=== PATIENT | female | born 1945 | race Caucasian/White ===

== ENCOUNTER 2018-11-19 15:45 | Emergency (ER) | payer MEDICARE, OTHER ==
[~2018-11-19] VITALS: Ht 154.9 cm; Wt 117.9 kg
[~2018-11-19 15:45] MED LIST: ALLOPURINOL100 MG PO; ASPIRIN325 MG PO; CALCIUM500 MG PO; FISH OIL 1,0001 EAC1 PO; FUROSEMIDE20 MG PO; HYDROCODON-ACE1 EA10 PO; HYDROCODON-ACE1 EA11 PO; IRON240 MG PO; LASIX20 MG PO; LISINOPRIL10 MG PO; LISINOPRIL40 MG PO; METFORMIN HCL1000 MG PO; METOPROLOL TART25 MG PO; MIRALAX17 GM PO; NIACIN500 M1 PO; OMEPRAZOLE20 MG PO; OXYCODONE HCL5 MG PO; POTASSIUM GLUC500 MG PO; PREDNISONE10 MG PO; TOPROL XL25 MG PO; TRAMADOL HCL50 MG PO; VITAMIN D1000 UNI1 PO; VITAMIN D31000 UNIT PO; XARELTO10 MG PO
[2018-11-19] MEDS ORDERED: ZOCOR40 MG (15:59)
[2018-11-19] MEDS ORDERED: AMLODIPINE BESYL5 MG PO (16:00)
--- OUTSIDE RECORDS SUMMARY | 2018-11-19 18:50 | XMS ---
PreManage Notification: TADEO AYALA Security Service Desk Team Lead Events No recent Security Events currently on file CRITERIA MET - [facility] - 2 Visits in 30 Days CARE PROVIDERS [facility] Current PHONE: Unknown orarmani Case or Inventory Specialist Current PHONE: Unknown Hiram [place] Other Current Orthopedic Surgery \T\ Fracture Clinic PHONE: Unknown Spencer has no Care Guidelines for this patient. E.D. VISIT COUNT (12 MO.) 1 [facility] Jose 1 FRANCESCA Matamoros TOTAL 2 NOTE: Visits indicate total known visits. ED/UCC VISIT TRACKING (12 MO.) 11/19/2018 18:57 [facility] Jose SALGUERO TYPE: Emergency DIAGNOSES: - Illness, unspecified 11/19/2018 15:46 FRANCESCA Clarke TYPE: Emergency COMPLAINT: - SOB INPATIENT VISIT TRACKING (12 MO.) No inpatient visits to display in this time frame [id number]
--- NOTE | 2018-11-19 23:21 | EKG ---
[facility] [address] [place], [place] [address] Signed Third degreee Heart Block Abnormal ECG No previous ECGs available Confirmed by JENNIFER NAGY MD ([id number]) on 11/19/2018 11:20:57 PM Electronically Signed By: JENNIFER NAGY MD 11/19/18 232 PATIENT NAME: TADEO AYALA Electrocardiogram DATE OF : 43 PHYSICIAN: JENNIFER NAGY MD REPORT #: [id number] REPORT IS CONFIDENTIAL AND NOT TO BE RELEASED WITHOUT AUTHORIZATION
== END 2018-11-19 18:40 | disposition short-term general hospital (02) ==
LOC: ED 15:45
DX: I13.0 Hypertensive heart and chronic kidney disease with heart failure and stage 1 through stage 4 chronic kidney disease, or unspecified chronic kidney disease (principal); I50.9 Heart failure, unspecified; I44.2 Atrioventricular block, complete; E11.22 Type 2 diabetes mellitus with diabetic chronic kidney disease; N18.9 Chronic kidney disease, unspecified; E66.9 Obesity, unspecified; Z87.891 Personal history of nicotine dependence; Z79.82 Long term (current) use of aspirin; Z79.899 Other long term (current) drug therapy
CPT/HCPCS: 71045; 80053; 83880; 84484; 85025; 85610; 93005; 93010; 99284-25

== ENCOUNTER 2019-10-04 16:24 | Emergency (ER) | payer MEDICARE, OTHER ==
[~2019-10-04] VITALS: Ht 154.9 cm; Wt 117.9 kg
--- OUTSIDE RECORDS SUMMARY | ~2019-10-04 | XMS | Encounter Summary ---
Demographics + + + | Address | [address] | | | [place] [address] | + + + | Home Phone | | + + + | Preferred Language | Unknown | + + + | Marital Status | | + + + | Baptism Affiliation | Unknown | + + + | Race | Unknown | + + + | Ethnic Group | Unknown | + + + Author + + + | Author | [facility] | | | and [place] | + + + | Organization | [facility] | | | and [place] | + + + | Address | Unknown | + + + | Phone | Unavailable | + + + Support + + + + + | Name | Relationship | Address | Phone | + + + + + | Last Kishorcarlos | ECON | [address] | | | | | [place] | | | | | [address] | | + + + + + Care Team Providers + +------+ + | Care Human Resource Statistician Name | Role | Phone | + +------+ + | Marilee Whaley | PCP | | | PA | | | + +------+ + Reason for Visit + + + | Reason | Comments | + + + | Medication Refill | | + + + Encounter Details +--------+--------+ + + + | Date | Type | Department | Care Team | Description | +--------+--------+ + + + | 09/24/ | Refill | [facility] | Rod Schaefer, | Medication Refill | | 2018 | | NEPHROLOGY [facility] | [address] | | | | | [address] [facility] | [place] | | | | | [place] | [place] | | | | | [address] | [address] | | | | | [phone] | [phone] | | | | | | | | +--------+--------+ + + + Social History + +-------+ +--------+------+ | Tobacco Use | Types | Packs/Day | Years | Date | | | | | Used | | + +-------+ +--------+------+ | Former Smoker | | 1.5 | | | + +-------+ +--------+------+ + + +---------+ + | Alcohol Use | Drinks/Week | oz/Week | Comments | + + +---------+ + | Yes | 0 Standard drinks | 0.0 | RARE, SOCIAL | | | or equivalent | | | + + +---------+ + + + + | Sex Assigned at | Date Recorded | | | | + + + | Not on file | | + + + + + + + | Job Start Date | Occupation | Industry | + + + + | Not on file | Not on file | Not on file | + + + + + + + + | Travel History | Travel Start | Travel End | + + + + + + | No recent travel history available. | + + documented as of this encounter Plan of Treatment +--------+ + + + + | Date | Type | Specialty | Care Team | Description | +--------+ + + + + | 12/15/ | Office | Nephrology | Jonathan Acosta MD | | | 2020 | Visit | | [address] [facility] | | | | | | [address] [place], [place] | | | | | | [address] | | | | | | | | +--------+ + + + + | 12/29/ | Procedure | Cardiology | | | | 2019 | visit | | | | +--------+ + + + + | 03/30/ | Procedure | Cardiology | | | | 2019 | visit | | | | +--------+ + + + + | 06/29/ | Procedure | Cardiology | | | | 2019 | visit | | | | +--------+ + + + + documented as of this encounter Visit Diagnoses + + | Diagnosis | + + | Chronic kidney disease, stage III (moderate) (HCC) - Primary Chronic kidney disease, | | Stage III (moderate) | + + | Adenoma of right adrenal gland | + + | Hypomagnesemia Disorders of magnesium metabolism | + + documented in this encounter"
--- OUTSIDE RECORDS SUMMARY | ~2019-10-04 | XMS | Encounter Summary ---
Demographics + + + | Address | [address] | | | [place] [address] | + + + | Home Phone | | + + + | Preferred Language | Unknown | + + + | Marital Status | | + + + | Religion Affiliation | Unknown | + + + | Race | Unknown | + + + | Ethnic Group | Unknown | + + + Author + + + | Author | [facility] | | | and [place] | + + + | Organization | [facility] | | | and [place] | + + + | Address | Unknown | + + + | Phone | Unavailable | + + + Support + + + + + | Name | Relationship | Address | Phone | + + + + + | Last Kishorcarlos | ECON | [address] | | | | | [place] | | | | | [address] | | + + + + + Care Team Providers + +------+ + | Care Vehicle Service Attendant Name | Role | Phone | + +------+ + | Marilee Whaley | PCP | | | PA | | | + +------+ + Encounter Details +--------+ + + + + | Date | Type | Department | Care Team | Description | +--------+ + + + + | 05/14/ | Orders Only | [facility] | Conversion | | | 2017 | | NEPHROLOGY [facility] | Transaction, | | | | | [address] | Provider Unknown | | | | | [address] [place], [place] | | | | | | [address] | (Fax) | | | | | [phone] | | | +--------+ + + + + Social History + +-------+ +--------+------+ | Tobacco Use | Types | Packs/Day | Years | Date | | | | | Used | | + +-------+ +--------+------+ | Never Assessed | | | | | + +-------+ +--------+------+ + [...] | Jonathan Acosta MD | | | 2019 | Visit | | [address] [facility] | | | | | | [address] [place], [place] | | | | | | [address] | | | | | | | [...] + + documented as of this encounter Procedures + +--------+ + + + | Procedure Name | Priori | Date/Time | Associated Diagnosis | Comments | | | ty | | | | + +--------+ + + + | EXTERNAL LAB: CBC | Routin | 05/14/2017 | | Results for this | | | e | 3:46 PM | | procedure are in the | | | | PDT | | results section. | + +--------+ + + + | IRON AND IRON | Routin | 05/14/2017 | | Results for this | | BINDING CAPACITY | e | 3:46 PM | | procedure are in the | | | | PDT | | results section. | + +--------+ + + + | URINALYSIS, | Routin | 05/14/2017 | | Results for this | | MICROSCOPIC ONLY | e | 3:46 PM | | procedure are in the | | | | PDT | | results section. | + +--------+ + + + | URIC ACID | Routin | 05/14/2017 | | Results for this | | | e | 3:46 PM | | procedure are in the | | | | PDT | | results section. | + +--------+ + + + | PARATHYROID HORMONE, | Routin | 05/14/2017 | | Results for this | | INTACT | e | 3:46 PM | | procedure are in the | | | | PDT | | results section. | + +--------+ + + + | MAGNESIUM | Routin | 05/14/2017 | | Results for this | | | e | 3:46 PM | | procedure are in the | | | | PDT | | results section. | + +--------+ + + + | FERRITIN | Routin | 05/14/2017 | | Results for this | | | e | 3:46 PM | | procedure are in the | | | | PDT | | results section. | + +--------+ + + + | RENAL FUNCTION PANEL | Routin | 05/14/2017 | | Results for this | | | e | 3:46 PM | | procedure are in the | | | | PDT | | results section. | + +--------+ + + + documented in this encounter Results Iron and Iron Binding Capacity (05/14/2017 3:46 PM PDT) + + + + + + | Component | Value | Ref Range | Performed | Pathologist | | | | | At | Signature | + + + + + + | Iron | 61.75 | 37 - 160 | EXTERNAL | | | | | | LAB | | + + + + + + | Iron | 13.5 (A) | 20 - 55 | EXTERNAL | | | Saturation | | | LAB | | + + + + + + | TIBC | 457 (A) | 245 - 400 | EXTERNAL | | | | | | LAB | | + + + + + + + + | Specimen | + + | Blood specimen | | (specimen) | + + + +---------+ + + | Performing | Address | City/State/Zipcode | Phone Number | | Organization | | | | + +---------+ + + | EXTERNAL LAB | | | | + +---------+ + + Urinalysis, Microscopic Only (05/14/2017 3:46 PM PDT) + + + + + + | Component | Value | Ref Range | Performed | Pathologist | | | | | At | Signature | + + + + + + | Color | Yellow | | EXTERNAL | | | | | | LAB | | + + + + + + | Clarity | Clear | | EXTERNAL | | | | | | LAB | | + + + + + + | Specific | 1.009 | 1.005 - 1.030 | EXTERNAL | | | [place] | | | LAB | | + + + + + + | Leukocyte | Comment: 25 | | EXTERNAL | | | Esterase, | | | LAB | | | Urine | | | | | + + + + + + | Nitrite, | Negative | | EXTERNAL | | | Urine | | | LAB | | + + + + + + | Urobilinoge | Normal | | EXTERNAL | | | n, Urine | | | LAB | | + + + + + + | Protein, | Negative | | EXTERNAL | | | Urine | | | LAB | | + + + + + + | pH, Urine | 5 | 5 - 9 | EXTERNAL | | | | | | LAB | | + + + + + + | Blood, | Negative | | EXTERNAL | | | Urine | | | LAB | | + + + + + + | Ketones | Negative | | EXTERNAL | | | | | | LAB | | + + + + + + | Bilirubin, | Negative | | EXTERNAL | | | Urine | | | LAB | | + + + + + + | Glucose, | Negative | | EXTERNAL | | | Urine | | | LAB | | + + + + + + + + | Specimen | + + | Urine specimen | | (specimen) | + + + +---------+ + + | Performing | Address | City/State/Zipcode | Phone Number | | Organization | | | | + +---------+ + + | EXTERNAL LAB | | | | + +---------+ + + External Lab: CBC (05/14/2017 3:46 PM PDT) + + + + + + | Component | Value | Ref Range | Performed | Pathologist | | | | | At | Signature | + + + + + + | WBC | 5.9 | 4.5 - 11.0 10 | EXTERNAL | | | | | | LAB | | + + + + + + | RED CELL | 3.99 | 3.8 - 5.1 10 | EXTERNAL | | | COUNT | | | LAB | | + + + + + + | Hgb | 11.7 (A) | 12.0 - 16.0 | EXTERNAL | | | | | g/dL | LAB | | + + + + + + | Hematocrit, | 36.4 | 35 - 45 % | EXTERNAL | | | POC | | | LAB | | + + + + + + | MCV | 91.0 | 81 - 99 fL | EXTERNAL | | | | | | LAB | | + + + + + + | MCH | 29 | 27 - 33 pg | EXTERNAL | | | | | | LAB | | + + + + + + | MCHC | 32 | 30 - 36 g/dL | EXTERNAL | | | | | | LAB | | + + + + + + | Platelet | 222 | 140 - 440 K/ L | EXTERNAL | | | Count | | | LAB | | | Plasma | | | | | + + + + + + | RDW-CV | 15.5 (A) | 10.5 - 15.0 % | EXTERNAL | | | | | | LAB | | + + + + + + | MPV | | fL | EXTERNAL | | | | | | LAB | | + + + + + + | Differentia | | | EXTERNAL | | | l Type | | | LAB | | + + + + + + | % Segmented | | % | EXTERNAL | | | | | | LAB | | | Neutrophils | | | | | + + + + + + | % | | % | EXTERNAL | | | Lymphocytes | | | LAB | | + + + + + + | % Monocytes | | % | EXTERNAL | | | | | | LAB | | + + + + + + | % | | % | EXTERNAL | | | Eosinophils | | | LAB | | + + + + + + | % Basophils | | % | EXTERNAL | | | | | | LAB | | + + + + + + | Absolute | | / L | EXTERNAL | | | Segmented | | | LAB | | | Neutrophils | | | | | + + + + + + | Absolute | | / L | EXTERNAL | | | Lymphocytes | | | LAB | | + + + + + + | Absolute | | / L | EXTERNAL | | | Monocytes | | | LAB | | + + + + + + | Absolute | | / L | EXTERNAL | | | Eosinophils | | | LAB | | + + + + + + | Absolute | | / L | EXTERNAL | | | Basophils | | | LAB | | + + + + + + + + | Specimen | + + | Blood specimen | | (specimen) | + + + +---------+ + + | Performing | Address | City/State/Zipcode | Phone Number | | Organization | | | | + +---------+ + + | EXTERNAL LAB | | | | + +---------+ + + Uric Acid (05/14/2017 3:46 PM PDT) + +---------+ + + + | Component | Value | Ref Range | Performed | Pathologist | | | | | At | Signature | + +---------+ + + + | Uric Acid | 7.8 (A) | 2.3 - 6.6 | EXTERNAL | | | | | | LAB | | + +---------+ + + + + + | Specimen | + + | Blood specimen | | (specimen) | + + + +---------+ + + | Performing | Address | City/State/Zipcode | Phone Number | | Organization | | | | + +---------+ + + | EXTERNAL LAB | | | | + +---------+ + + Parathyroid Hormone, Intact (05/14/2017 3:46 PM PDT) + +-------+ + + + | Component | Value | Ref Range | Performed | Pathologist | | | | | At | Signature | + +-------+ + + + | PTH INTACT | 48.11 | 15 - 65 pg/mL | EXTERNAL | | | | | | LAB | | + +-------+ + + + + + | Specimen | + + | Blood specimen | | (specimen) | + + + +---------+ + + | Performing | Address | City/State/Zipcode | Phone Number | | Organization | | | | + +---------+ + + | EXTERNAL LAB | | | | + +---------+ + + Magnesium (05/14/2017 3:46 PM PDT) + +-------+ + + + | Component | Value | Ref Range | Performed | Pathologist | | | | | At | Signature | + +-------+ + + + | Magnesium | 1.7 | 1.7 - 2.5 mg/dL | EXTERNAL | | | | | | LAB | | + +-------+ + + + + + | Specimen | + + | Blood specimen | | (specimen) | + + + +---------+ + + | Performing | Address | City/State/Zipcode | Phone Number | | Organization | | | | + +---------+ + + | EXTERNAL LAB | | | | + +---------+ + + Ferritin (05/14/2017 3:46 PM PDT) + +-------+ + + + | Component | Value | Ref Range | Performed | Pathologist | | | | | At | Signature | + +-------+ + + + | Ferritin, | 36.30 | 13 - 150 ng/mL | EXTERNAL | | | External | | | LAB | | + +-------+ + + + + + | Specimen | + + | Blood specimen | | (specimen) | + + + +---------+ + + | Performing | Address | City/State/Zipcode | Phone Number | | Organization | | | | + +---------+ + + | EXTERNAL LAB | | | | + +---------+ + + Renal Function Panel (05/14/2017 3:46 PM PDT) + + + + + + | Component | Value | Ref Range | Performed | Pathologist | | | | | At | Signature | + + + + + + | Glucose, | 95 | 70 - 100 mg/dL | EXTERNAL | | | Fasting | | | LAB | | + + + + + + | BUN | 34 (A) | 6 - 23 mg/dL | EXTERNAL | | | | | | LAB | | + + + + + + | Creatinine | 1.09 | 0.70 - 1.18 | EXTERNAL | | | | | mg/dL | LAB | | + + + + + + | PHOSPHORUS | | mg/dL | EXTERNAL | | | | | | LAB | | + + + + + + | Albumin | 4.4 | 3.5 - 5.0 | EXTERNAL | | | | | | LAB | | + + + + + + | Na | 137 | 132 - 143 | EXTERNAL | | | | | mmol/L | LAB | | + + + + + + | K | 4.7 | 3.6 - 5.1 | EXTERNAL | | | | | mmol/L | LAB | | + + + + + + | Cl | 102 | 95 - 112 mmol/L | EXTERNAL | | | | | | LAB | | + + + + + + | CO2 | 24 | 19 - 31 mmol/L | EXTERNAL | | | | | | LAB | | + + + + + + | Anion Gap | 15.7 | 7 - 21 mmol/L | EXTERNAL | | | | | | LAB | | + + + + + + | eGFR if not | | | EXTERNAL | | | | | | LAB | | | [place] | | | | | + + + + + + | Phosphorus, | 3.4 | 2.5 - 5.0 | EXTERNAL | | | Inorganic | | | LAB | | + + + + + + | BUN/Creatin | 31.2 (A) | 6.0 - 28.6 | EXTERNAL | | | ine Ratio | | | LAB | | + + + + + + | Calcium | 10.0 | 8.4 - 10.2 | EXTERNAL | | | | | mg/dL | LAB | | + + + + + + | Estimated | 49 | mg/dL | EXTERNAL | | | GFR | | | LAB | | + + + + + + + + | Specimen | + + | Blood specimen | | (specimen) | + + + +---------+ + + | Performing | Address | City/State/Zipcode | Phone Number | | Organization | | | | + +---------+ + + | EXTERNAL LAB | | | | + +---------+ + + documented in this encounter Visit Diagnoses Not on filedocumented in this encounter"
--- OUTSIDE RECORDS SUMMARY | ~2019-10-04 | XMS | Encounter Summary ---
Demographics + + + | Address | [address] | | | [place] [address] | + + + | Home Phone | | + + + | Preferred Language | Unknown | + + + | Marital Status | | + + + | Mormon Affiliation | Unknown | + + + | Race | Unknown | + + + | Ethnic Group | Unknown | + + + Author + + + | Author | [facility] | | | and [place] | + + + | Organization | [facility] | | | and [place] | + + + | Address | Unknown | + + + | Phone | Unavailable | + + + Support + + + + + | Name | Relationship | Address | Phone | + + + + + | Last Kishorcarlos | ECON | [address] | | | | | [place] | | | | | [address] | | + + + + + Care Team Providers + +------+ + | Care Assistant Analyst Name | Role | Phone | + +------+ + | Marilee Whaley | PCP | | | PA | | | + +------+ + Encounter Details +--------+ + + + + | Date | Type | Department | Care Team | Description | +--------+ + + + + | 10/10/ | Orders Only | [facility] | Conversion | | | 2017 | | NEPHROLOGY [facility] | Transaction, | | | | | [address] | Provider Unknown | | | | | [address] [place], [place] | | | | | | [address] | (Fax) | | | | | [phone] | | | +--------+ + + + [...] 2019 | Visit | | [address] [facility] | | | | | | [address] [place], [place] | | | | | | [address] | | | | | | | [...] | EXTERNAL LAB: CBC | Routin | 10/10/2017 | | Results for this | | | e | 2:40 PM | | procedure are in the | | | | PST | | results section. | + +--------+ + + + | IRON AND IRON | Routin | 10/10/2017 | | Results for this | | BINDING CAPACITY | e | 2:40 PM | | procedure are in the | | | | PST | | results section. | + +--------+ + + + | PROTEIN/CREATININE | Routin | 10/10/2017 | | Results for this | | RATIO, URINE | e | 2:40 PM | | procedure are in the | | | | PST | | results section. | + +--------+ + + + | URIC ACID | Routin | 10/10/2017 | | Results for this | | | e | 2:40 PM | | procedure are in the | | | | PST | | results section. | + +--------+ + + + | TRANSFERRIN | Routin | 10/10/2017 | | Results for this | | | e | 2:40 PM | | procedure are in the | | | | PST | | results section. | + +--------+ + + + | PARATHYROID HORMONE, | Routin | 10/10/2017 | | Results for this | | INTACT | e | 2:40 PM | | procedure are in the | | | | PST | | results section. | + +--------+ + + + | MAGNESIUM | Routin | 10/10/2017 | | Results for this | | | e | 2:40 PM | | procedure are in the | | | | PST | | results section. | + +--------+ + + + | FERRITIN | Routin | 10/10/2017 | | Results for this | | | e | 2:40 PM | | procedure are in the | | | | PST | | results section. | + +--------+ + + + | RENAL FUNCTION PANEL | Routin | 10/10/2017 | | Results for this | | | e | 2:40 PM | | procedure are in the | | | | PST | | results section. | + +--------+ + + + documented in this encounter Results Iron and Iron Binding Capacity (10/10/2017 2:40 PM PST) + + + + + + | Component | Value | Ref Range | Performed | Pathologist | | | | | At | Signature | + + + + + + | Iron | 75.90 | 37 - 160 | EXTERNAL | | | | | | LAB | | + + + + + + | Iron | 17.63 (A) | 20 - 55 | EXTERNAL | | | Saturation | | | LAB | | + + + + + + | TIBC | 438 (A) | 245 - 400 | EXTERNAL [...] | | | + +---------+ + + Protein/Creatinine Ratio, Urine (10/10/2017 2:40 PM PST) + +---------+ + + + | Component | Value | Ref Range | Performed | Pathologist | | | | | At | Signature | + +---------+ + + + | Protein/Cre | 160 (A) | 0 - 150 | EXTERNAL | | | at Ratio | | | LAB | | [...] + +---------+ + + External Lab: CBC (10/10/2017 2:40 PM PST) + + + + + + | Component | Value | Ref Range | Performed | Pathologist | | | | | At | Signature | + + + + + + | WBC | 6.3 | 4.5 - 11.0 10 | EXTERNAL | | | | | | LAB | | + + + + + + | RED CELL | 4.51 | 3.8 - 5.1 10 | EXTERNAL | | | COUNT | | | LAB | | + + + + + + | Hgb | 13.5 | 12.0 - 16.0 | EXTERNAL | | | | | g/dL | LAB | | + + + + + + | Hematocrit, | 41.6 | 35 - 45 % | EXTERNAL | | | POC | | | LAB | | + + + + + + | MCV | 92.3 | 81 - 99 fL | EXTERNAL | | | | | | LAB | | + + + + + + | MCH | 30 | 27 - 33 pg | EXTERNAL | | | | | | LAB | | + + + + + + | MCHC | 32 | 30 - 36 g/dL | EXTERNAL | | | | | | LAB | | + + + + + + | Platelet | 267 | 140 - 440 K/ L | EXTERNAL | | | Count | | | LAB | | | Plasma | | | | | + + + + + + | RDW-CV | 15.4 (A) | 10.5 - 15.0 % | [...] | + +---------+ + + Uric Acid (10/10/2017 2:40 PM PST) + +---------+ + + + | Component | Value | Ref Range | Performed | Pathologist | | | | | At | Signature | + +---------+ + + + | Uric Acid | 7.1 (A) | 2.3 - 6.6 | EXTERNAL [...] | | | + +---------+ + + Transferrin (10/10/2017 2:40 PM PST) + +--------+ + + + | Component | Value | Ref Range | Performed | Pathologist | | | | | At | Signature | + +--------+ + + + | TRANSFERRIN | 313.16 | 192 - 382 | EXTERNAL | | | | | | LAB | | + +--------+ + + + + + | Specimen | + + | Blood specimen | | (specimen) | + + + +---------+ + + | Performing | Address | City/State/Zipcode | Phone Number | | Organization | | | | + +---------+ + + | EXTERNAL LAB | | | | + +---------+ + + Parathyroid Hormone, Intact (10/10/2017 2:40 PM PST) + + + + + + | Component | Value | Ref Range | Performed | Pathologist | | | | | At | Signature | + + + + + + | PTH INTACT | 86.55 (A) | 15 - 65 pg/mL | EXTERNAL [...] | | + +---------+ + + Magnesium (10/10/2017 2:40 PM PST) + +-------+ + + + | Component [...] | | + +---------+ + + Ferritin (10/10/2017 2:40 PM PST) + + + + + + | Component | Value | Ref Range | Performed | Pathologist | | | | | At | Signature | + + + + + + | Ferritin, | 150.4 (A) | 13 - 150 ng/mL | EXTERNAL [...] + +---------+ + + Renal Function Panel (10/10/2017 2:40 PM PST) + + + + + + | Component | Value | Ref Range | Performed | Pathologist | | | | | At | Signature | + + + + + + | Glucose, | 108 (A) | 70 - 100 mg/dL | EXTERNAL | | | Fasting | | | LAB | | + + + + + + | BUN | 27 (A) | 6 - 23 mg/dL | EXTERNAL | | | | | | LAB | | + + + + + + | Creatinine | 0.92 | 0.70 - 1.18 | EXTERNAL | | | | | mg/dL | LAB | | + + + + + + | PHOSPHORUS | | mg/dL | EXTERNAL | | | | | | LAB | | + + + + + + | Albumin | 4.5 | 3.5 - 5.0 | EXTERNAL | | | | | | LAB | | + + + + + + | Na | 143 | 132 - 143 | EXTERNAL | | | | | mmol/L | LAB | | + + + + + + | K | 3.8 | 3.6 - 5.1 | EXTERNAL | | | | | mmol/L | LAB | | + + + + + + | Cl | 105 | 95 - 112 mmol/L | EXTERNAL | | | | | | LAB | | + + + + + + | CO2 | 20 | 19 - 31 mmol/L | EXTERNAL | | | | | | LAB | | + + + + + + | Anion Gap | 21.8 (A) | 7 - 21 mmol/L | EXTERNAL | | | | | | LAB | | + + + + + + | eGFR if not | | | EXTERNAL | | | | | | LAB | | | [place] | | | | | + + + + + + | Phosphorus, | 3.2 | 2.5 - 5.0 | EXTERNAL | | | Inorganic | | | LAB | | + + + + + + | BUN/Creatin | 29.3 (A) | 6 - 28.6 | EXTERNAL | | | ine Ratio | | | LAB | | + + + + + + | Calcium | 9.7 | 8.4 - 10.2 | EXTERNAL | | | | | mg/dL | LAB | | + + + + + + | Estimated | 60 | mg/dL | EXTERNAL | | | [...]
--- OUTSIDE RECORDS SUMMARY | ~2019-10-04 | XMS | Encounter Summary ---
Demographics + + + | Address | [address] | | | [place] [address] | + + + | Home Phone | | + + + | Preferred Language | Unknown | + + + | Marital Status | | + + + | Moravian Affiliation | Unknown | + + + | Race | Unknown | + + + | Ethnic Group | Unknown | + + + Author + + + | Author | [facility] | | | and [place] | + + + | Organization | [facility] | | | and [place] | + + + | Address | Unknown | + + + | Phone | Unavailable | + + + Support + + + + + | Name | Relationship | Address | Phone | + + + + + | Last Kishorcarlos | ECON | [address] | | | | | [place] | | | | | [address] | | + + + + + Care Team Providers + +------+ + | Care Mirror Installer Name | Role | Phone | + +------+ + | Marilee Whaley | PCP | | | PA | | | + +------+ + Encounter Details +--------+ + + + + | Date | Type | Department | Care Team | Description | +--------+ + + + + | 05/26/ | Orders Only | [facility] | Rod Schaefer, | Type 2 diabetes | | 2019 | | NEPHROLOGY [place] | [employer]ATOR [address] | mellitus with | | | | [address] | [address] | diabetic nephropathy | | | | [address] [place], [place] | [place], [place] | ([facility]); Chronic | | | | [address] | [address] | kidney disease, | | | | [phone] | [phone] | stage III (moderate) | | | | | | ([facility]) | +--------+ + + + + Social [...] | | | | | | [address] [place], [place] | | | | | | [id number] | | | | | | | [...] | | +--------+ + + + + + +------+--------+ + + | Name | Type | Priori | Associated Diagnoses | Order Schedule | | | | ty | | | + +------+--------+ + + | Basic Metabolic | Lab | Routin | Type 2 diabetes | Expected: | | Panel | | e | mellitus with | 11/28/2018, Expires: | | | | | diabetic nephropathy | 11/21/2019 | | | | | (HCC) Chronic | | | | | | kidney disease, | | | | | | stage III (moderate) | | | | | | (HCC) | | + +------+--------+ + + documented as of this encounter Procedures + +--------+ + + + | Procedure Name | Priori | Date/Time | Associated Diagnosis | Comments | | | ty | | | | + +--------+ + + + | EXTERNAL LAB: CBC | Routin | 05/26/2019 | | Results for this | | | e | 11:00 AM | | procedure are in the | | | | PDT | | results section. | + +--------+ + + + | PROTEIN/CREATININE | Routin | 05/26/2019 | | Results for this | | RATIO, URINE | e | 11:00 AM | | procedure are in the | | | | PDT | | results section. | + +--------+ + + + | URIC ACID | Routin | 05/26/2019 | | Results for this | | | e | 11:00 AM | | procedure are in the | | | | PDT | | results section. | + +--------+ + + + | MAGNESIUM | Routin | 05/26/2019 | | Results for this | | | e | 11:00 AM | | procedure are in the | | | | PDT | | results section. | + +--------+ + + + | RENAL FUNCTION PANEL | Routin | 05/26/2019 | | Results for this | | | e | 11:00 AM | | procedure are in the | | | | PDT | | results section. | + +--------+ + + + documented in this encounter Results Protein/Creatinine Ratio, Urine (05/26/2019 11:00 AM PDT) + +-------+ + + + | Component | Value | Ref Range | Performed | Pathologist | | | | | At | Signature | + +-------+ + + + | Protein/Cre | 131.6 | 0 - 150 | EXTERNAL | [...] + +---------+ + + External Lab: CBC (05/26/2019 11:00 AM PDT) + + + + + + | Component | Value | Ref Range | Performed | Pathologist | | | | | At | Signature | + + + + + + | WBC | 6.1 | 4.5 - 11.0 10 | EXTERNAL | | | | | | LAB | | + + + + + + | RED CELL | 3.97 | 3.8 - 5.1 10 | EXTERNAL | | | COUNT | | | LAB | | + + + + + + | Hgb | 11.7 (A) | 12.0 - 16.0 | EXTERNAL | | | | | g/dL | LAB | | + + + + + + | Hematocrit, | 36.6 | 35 - 45 % | EXTERNAL | | | POC | | | LAB | | + + + + + + | MCV | 92.2 | 81 - 99 fL | EXTERNAL [...] + + + + | Platelet | 245 | 140 - 440 K/ L | EXTERNAL | | | Count | | | LAB | | | Plasma | | | | | + + + + + + | RDW-CV | 16.0 (A) | 10.5 - 15.0 % | [...] + + + | % Segmented | 54.4 | 39 - 80 % | EXTERNAL | | | | | | LAB | | | Neutrophils | | | | | + + + + + + | % | 34.0 | 24 - 44 % | EXTERNAL | | | Lymphocytes | | | LAB | | + + + + + + | % Monocytes | 7.5 | 0 - 12 % | EXTERNAL | | | | | | LAB | | + + + + + + | % | 3.4 | 0 - 6 % | EXTERNAL | | | Eosinophils | | | LAB | | + + + + + + | % Basophils | 0.7 | 0 - 2 % | EXTERNAL | | | | [...] | + +---------+ + + Uric Acid (05/26/2019 11:00 AM PDT) + + + + + + | Component | Value | Ref Range | Performed | Pathologist | | | | | At | Signature | + + + + + + | Uric Acid | 10.3 (A) | 2.3 - 6.6 | EXTERNAL [...] | | + +---------+ + + Magnesium (05/26/2019 11:00 AM PDT) + +-------+ + + + | Component | Value | Ref Range | Performed | Pathologist | | | | | At | Signature | + +-------+ + + + | Magnesium | 1.8 | 1.7 - 2.5 mg/dL | EXTERNAL [...] + +---------+ + + Renal Function Panel (05/26/2019 11:00 AM PDT) + + + + + + | Component | Value | Ref Range | Performed | Pathologist | | | | | At | Signature | + + + + + + | Glucose, | 118 (A) | 70 - 100 mg/dL | EXTERNAL | | | Fasting | | | LAB | | + + + + + + | BUN | 50 (A) | 6 - 23 mg/dL | EXTERNAL | | | | | | LAB | | + + + + + + | Creatinine | 1.36 (A) | 0.70 - 1.18 | EXTERNAL | | | | | mg/dL | LAB | | + + + + + + | PHOSPHORUS | 3.7 | 2.5 - 5.0 mg/dL | EXTERNAL | | | | | | LAB | | + + + + + + | Albumin | 4.3 | 3.5 - 5.0 | EXTERNAL | | | | | | LAB | | + + + + + + | Na | 139 | 132 - 143 | EXTERNAL | | | | | mmol/L | LAB | | + + + + + + | K | 4.6 | 3.6 - 5.1 | EXTERNAL | | | | | mmol/L | LAB | | + + + + + + | Cl | 102 | 95 - 112 mmol/L | EXTERNAL | | | | | | LAB | | + + + + + + | CO2 | 22 | 19 - 31 mmol/L | EXTERNAL | | | | | | LAB | | + + + + + + | Anion Gap | 19.6 | 7 - 21 mmol/L | EXTERNAL | | | | | | LAB | | + + + + + + | eGFR if not | | | EXTERNAL | | | | | | LAB | | | [facility] | | | | | + + + + + + | Phosphorus, | | | EXTERNAL | | | Inorganic | | | LAB | | + + + + + + | BUN/Creatin | 36.9 (A) | 6.0 - 28.6 | EXTERNAL | | | ine Ratio | | | LAB | | + + + + + + | Calcium | 9.6 | 8.5 - 10.3 | EXTERNAL | | | | | mg/dL | LAB | | + + + + + + | Estimated | 38 (A) | 60 - 140 mg/dL | EXTERNAL | | | GFR [...] + documented in this encounter Visit Diagnoses + + | Diagnosis | + + | Type 2 diabetes mellitus with diabetic nephropathy (HCC) Type II or unspecified type | | diabetes mellitus with renal manifestations, not stated as uncontrolled | + + | Chronic kidney disease, stage III (moderate) (HCC) Chronic kidney disease, Stage III | | (moderate) | + + documented in this encounter"
--- OUTSIDE RECORDS SUMMARY | ~2019-10-04 | XMS | Encounter Summary ---
Demographics + + + | Address | [address] | | | [place] [address] | + + + | Home Phone | | + + + | Preferred Language | Unknown | + + + | Marital Status | | + + + | Jain Affiliation | Unknown | + + + | Race | Unknown | + + + | Ethnic Group | Unknown | + + + Author + + + | Author | [facility] | | | and [place] | + + + | Organization | [facility] | | | and [place] | + + + | Address | Unknown | + + + | Phone | Unavailable | + + + Support + + + + + | Name | Relationship | Address | Phone | + + + + + | Last Kishorcarlos | ECON | [address] | | | | | [place] | | | | | [address] | | + + + + + Care Team Providers + +------+ + | Care Advertising Operations Manager Name | Role | Phone | + [...] + + | 09/24/ | Refill | [facility] | Rod Schaefer, | Medication Refill | | 2018 | | NEPHROLOGY [place] | [address] | | | | | [address] [facility] | [place] | | | | | [place] | [place] | | | | | [address] | [address] | | | | | [phone] | [phone] | | | | | | | [...] 2020 | Visit | | [address] [facility] | | | | | | [address] [place], [place] | | | | | | [address] | | | | | | | [...]
--- OUTSIDE RECORDS SUMMARY | ~2019-10-04 | XMS | Encounter Summary ---
Demographics + + + | Address | [address] | | | [place] [address] | + + + | Home Phone | | + + + | Preferred Language | Unknown | + + + | Marital Status | | + + + | Jehovah'S Witness Affiliation | Unknown | + + + | Race | Unknown | + + + | Ethnic Group | Unknown | + + + Author + + + | Author | [facility] | | | and [place] | + + + | Organization | [facility] | | | and [place] | + + + | Address | Unknown | + + + | Phone | Unavailable | + + + Support + + + + + | Name | Relationship | Address | Phone | + + + + + | Last Garner | ECON | [address] | | | | | [place] | | | | | [address] | | + + + + + Care Team Providers + +------+ + | Care Production Control Manager Name | Role | Phone | + +------+ + | Marilee Whaley | PCP | | | PA | | | + +------+ + Encounter Details +--------+ + + + + | Date | Type | Department | Care Team | Description | +--------+ + + + + | 02/01/ | Abstract | [facility] | Shaquille Anthony, | | | 2015 | | NEUROSURGERY [address] | PA-C [address] | | | | | [address] | [address] [place] | | | | | [place], [place] | [place] [address] | | | | | [address] | [phone] | | | | | [phone] | | | +--------+ + + + [...] | | | | | | [address] [place], [place] | | | | | | [address] | | | | | | | [...] documented as of this encounter Visit Diagnoses Not on filedocumented in this encounter"
--- OUTSIDE RECORDS SUMMARY | ~2019-10-04 | XMS | Encounter Summary ---
Demographics + + + | Address | [address] | | | [place] [address] | + + + | Home Phone | | + + + | Preferred Language | Unknown | + + + | Marital Status | | + + + | Denominational Affiliation | Unknown | + + + | Race | Unknown | + + + | Ethnic Group | Unknown | + + + Author + + + | Author | [facility] | | | and [place] | + + + | Organization | [facility] | | | and [place] | + + + | Address | Unknown | + + + | Phone | Unavailable | + + + Support + + + + + | Name | Relationship | Address | Phone | + + + + + | Last Kishorcarlos | ECON | [address] | | | | | [place] | | | | | [address] | | + + + + + Care Team Providers + +------+ + | Care Staffing Analyst Name | Role | Phone | + +------+ + | Marilee Whaley | PCP | | | PA | | | + +------+ + Encounter Details +--------+ + + + + | Date | Type | Department | Care Team | Description | +--------+ + + + + | 03/13/ | Orders Only | [facility] | Conversion | | | 2015 | | NEPHROLOGY [facility] | Transaction, | | | | | [address] | Provider Unknown | | | | | [address] [place], [place] | | | | | | [address] | (Fax) | | | | | [phone] | | | +--------+ + + + [...] 2019 | Visit | | [address] [facility] | | | | | | [address] [place], [place] | | | | | | [address] | | | | | | | [...] | EXTERNAL LAB: CBC | Routin | 03/13/2016 | | Results for this | | | e | 12:00 AM | | procedure are in the | | | | PDT | | results section. | + +--------+ + + + | URINALYSIS WITH | Routin | 03/13/2016 | | Results for this | | MICROSCOPIC WITH | e | 12:00 AM | | procedure are in the | | CULTURE IF INDICATED | | PDT | | results section. | + +--------+ + + + | VITAMIN D, | Routin | 03/13/2016 | | Results for this | | DEFICIENCY SCREEN | e | 12:00 AM | | procedure are in the | | (25-HYDROXY) | | PDT | | results section. | + +--------+ + + + | PARATHYROID HORMONE, | Routin | 03/13/2016 | | Results for this | | INTACT AND CALCIUM | e | 12:00 AM | | procedure are in the | | | | PDT | | results section. | + +--------+ + + + | PROTEIN/CREATININE | Routin | 03/13/2016 | | Results for this | | RATIO, URINE | e | 12:00 AM | | procedure are in the | | | | PDT | | results section. | + +--------+ + + + | URIC ACID | Routin | 03/13/2016 | | Results for this | | | e | 12:00 AM | | procedure are in the | | | | PDT | | results section. | + +--------+ + + + | URIC ACID | Routin | 03/13/2016 | | Results for this | | | e | 12:00 AM | | procedure are in the | | | | PDT | | results section. | + +--------+ + + + | MAGNESIUM | Routin | 03/13/2016 | | | | | e | 12:00 AM | | | | | | PDT | | | + +--------+ + + + | MAGNESIUM | Routin | 03/13/2016 | | Results for this | | | e | 12:00 AM | | procedure are in the | | | | PDT | | results section. | + +--------+ + + + | RENAL FUNCTION PANEL | Routin | 03/13/2016 | | | | | e | 12:00 AM | | | | | | PDT | | | + +--------+ + + + | RENAL FUNCTION PANEL | Routin | 03/13/2016 | | Results for this | | | e | 12:00 AM | | procedure are in the | | | | PDT | | results section. | + +--------+ + + + documented in this encounter Results Urinalysis with Microscopic with Culture if Indicated (03/13/2016 12:00 AM PDT) + + + + + [...] + + + + + + | Spec Grav, | 1.007 | | EXTERNAL | | | Fluid | | | LAB | | + + + + + + | Leukocyte | TraceComment: 25 | | EXTERNAL | | | [...] + + + + + + | Total | negative | | EXTERNAL | | | Protein | | | LAB | | + + + + + + | pH, Urine | 5 | | EXTERNAL | | | | | | LAB | | + + + + + + | Blood, | Negative | | EXTERNAL | | | Urine | | | LAB | | + + + + + + | Ketones | negativae | | EXTERNAL | | | | [...] + + + + + + | WBC, UA | 5 | | EXTERNAL | | | | | | LAB | | + + + + + + | RBC, UA | 0 | | EXTERNAL | | | | | | LAB | | + + + + + + | Epithelial | 1 | | EXTERNAL | | | Cells | | | LAB | | + + + + + + | Bacteria, | None Seen | | EXTERNAL | | | UA | | | LAB | | + + + + + + | HYALINE | | | EXTERNAL | | | CASTS UA | | | LAB | | + + + + + + + + | Specimen | + + | | + + + +---------+ + + | Performing | Address | City/State/Zipcode | Phone Number | | Organization | | | | + +---------+ + + | EXTERNAL LAB | | | | + +---------+ + + Parathyroid Hormone, Intact and Calcium (03/13/2016 12:00 AM PDT) + + + + + + | Component | Value | Ref Range | Performed | Pathologist | | | | | At | Signature | + + + + + + | PTH Intact | 87.45 (A) | 15 - 65 | EXTERNAL | | | | | | LAB | | + + + + + + | Calcium | 9.1 | 8.4 - 10.2 | EXTERNAL | [...] + +---------+ + + Protein/Creatinine Ratio, Urine (03/13/2016 12:00 AM PDT) + +-------+ + + + | Component | Value | Ref Range | Performed | Pathologist | | | | | At | Signature | + +-------+ + + + | Protein/Cre | 64.5 | 0 - 150 | EXTERNAL | [...] | | | + +---------+ + + Vitamin D, Deficiency Screen (25-Hydroxy) (03/13/2016 12:00 AM PDT) + +-------+ + + + | Component | Value | Ref Range | Performed | Pathologist | | | | | At | Signature | + +-------+ + + + | Vit D, | 38 | 30 - 100 | EXTERNAL | | | 25-Hydroxy | | | LAB | | + [...] + +---------+ + + External Lab: CBC (03/13/2016 12:00 AM PDT) + +-------+ + + + | Component | Value | Ref Range | Performed | Pathologist | | | | | At | Signature | + +-------+ + + + | WBC | 5.1 | 4.5 - 11.0 10 | EXTERNAL | | | | | | LAB | | + +-------+ + + + | RED CELL | 4.34 | 3.8 - 5.1 10 | EXTERNAL | | | COUNT | | | LAB | | + +-------+ + + + | Hgb | 12.6 | 12.0 - 16.0 | EXTERNAL | | | | | g/dL | LAB | | + +-------+ + + + | Hematocrit, | 39.3 | 35 - 45 % | EXTERNAL | | | POC | | | LAB | | + +-------+ + + + | MCV | 90.7 | 81 - 99 fL | EXTERNAL | | | | | | LAB | | + +-------+ + + + | MCH | 29 | 27 - 33 pg | EXTERNAL | | | | | | LAB | | + +-------+ + + + | MCHC | 32 | 30 - 36 g/dL | EXTERNAL | | | | | | LAB | | + +-------+ + + + | Platelet | 261 | 140 - 440 K/ L | EXTERNAL | | | Count | | | LAB | | | Plasma | | | | | + +-------+ + + + | RDW-CV | 14.1 | 10.5 - 15.0 % | EXTERNAL | | | | | | LAB | | + +-------+ + + + | MPV | | fL | EXTERNAL | | | | | | LAB | | + +-------+ + + + | Differentia | | | EXTERNAL | | | l Type | | | LAB | | + +-------+ + + + | % Segmented | 55.5 | 39 - 80 % | EXTERNAL | | | | | | LAB | | | Neutrophils | | | | | + +-------+ + + + | % | 34.3 | 24 - 44 % | EXTERNAL | | | Lymphocytes | | | LAB | | + +-------+ + + + | % Monocytes | 6.3 | 0 - 12 % | EXTERNAL | | | | | | LAB | | + +-------+ + + + | % | 3.3 | 0 - 6 % | EXTERNAL | | | Eosinophils | | | LAB | | + +-------+ + + + | % Basophils | 0.6 | 0 - 2 % | EXTERNAL | | | | | | LAB | | + +-------+ + + + | Absolute | | / L | EXTERNAL | | | Segmented | | | LAB | | | Neutrophils | | | | | + +-------+ + + + | Absolute | | / L | EXTERNAL | | | Lymphocytes | | | LAB | | + +-------+ + + + | Absolute | | / L | EXTERNAL | | | Monocytes | | | LAB | | + +-------+ + + + | Absolute | | / L | EXTERNAL | | | Eosinophils | | | LAB | | + +-------+ + + + | Absolute | | [...] | + +---------+ + + Uric Acid (03/13/2016 12:00 AM PDT) + +---------+ + + + | Component | Value | Ref Range | Performed | Pathologist | | | | | At | Signature | + +---------+ + + + | Uric Acid | 7.4 (A) | 2.3 - 6.6 | EXTERNAL [...] | + +---------+ + + Uric Acid (03/13/2016 12:00 AM PDT) + +---------+ + + + | Component | Value | Ref Range | Performed | Pathologist | | | | | At | Signature | + +---------+ + + + | Uric Acid | 7.4 (A) | 2.3 - 6.6 | EXTERNAL [...] | | + +---------+ + + Magnesium (03/13/2016 12:00 AM PDT) + +-------+ + + + | Component | Value | Ref Range | Performed | Pathologist | | | | | At | Signature | + +-------+ + + + | Magnesium | | mg/dL | EXTERNAL | | [...] | | + +---------+ + + Magnesium (03/13/2016 12:00 AM PDT) + +-------+ + + + [...] + +---------+ + + Renal Function Panel (03/13/2016 12:00 AM PDT) + +-------+ + + + | Component | Value | Ref Range | Performed | Pathologist | | | | | At | Signature | + +-------+ + + + | Glucose, | | mg/dL | EXTERNAL | | | Fasting | | | LAB | | + +-------+ + + + | BUN | | mg/dL | EXTERNAL | | | | | | LAB | | + +-------+ + + + | Creatinine | | mg/dL | EXTERNAL | | | | | | LAB | | + +-------+ + + + | PHOSPHORUS | | mg/dL | EXTERNAL | | | | | | LAB | | + +-------+ + + + | Albumin | | | EXTERNAL | | | | | | LAB | | + +-------+ + + + | Na | | mmol/L | EXTERNAL | | | | | | LAB | | + +-------+ + + + | K | | mmol/L | EXTERNAL | | | | | | LAB | | + +-------+ + + + | Cl | | mmol/L | EXTERNAL | | | | | | LAB | | + +-------+ + + + | CO2 | | mmol/L | EXTERNAL | | | | | | LAB | | + +-------+ + + + | Anion Gap | | mmol/L | EXTERNAL | | | | | | LAB | | + +-------+ + + + | eGFR if not | | | EXTERNAL | | | | | | LAB | | | [facility] | | | | | + +-------+ + + + | Phosphorus, | | | EXTERNAL | | | Inorganic | | | LAB | | + +-------+ + + + | BUN/Creatin | | | EXTERNAL | | | ine Ratio | | | LAB | | + +-------+ + + + | Calcium | | mg/dL | EXTERNAL | | | | | | LAB | | + +-------+ + + + | Estimated | | mg/dL | EXTERNAL | | [...] + +---------+ + + Renal Function Panel (03/13/2016 12:00 AM PDT) + +---------+ + + + | Component | Value | Ref Range | Performed | Pathologist | | | | | At | Signature | + +---------+ + + + | Glucose, | 149 (A) | 70 - 100 mg/dL | EXTERNAL | | | Fasting | | | LAB | | + +---------+ + + + | BUN | 17 | 6 - 23 mg/dL | EXTERNAL | | | | | | LAB | | + +---------+ + + + | Creatinine | 1.05 | 0.70 - 1.18 | EXTERNAL | | | | | mg/dL | LAB | | + +---------+ + + + | PHOSPHORUS | | mg/dL | EXTERNAL | | | | | | LAB | | + +---------+ + + + | Albumin | 4.0 | 3.5 - 5.0 | EXTERNAL | | | | | | LAB | | + +---------+ + + + | Na | 140 | 132 - 143 | EXTERNAL | | | | | mmol/L | LAB | | + +---------+ + + + | K | 4.4 | 3.6 - 5.1 | EXTERNAL | | | | | mmol/L | LAB | | + +---------+ + + + | Cl | 104 | 95 - 112 mmol/L | EXTERNAL | | | | | | LAB | | + +---------+ + + + | CO2 | 24 | 19 - 31 mmol/L | EXTERNAL | | | | | | LAB | | + +---------+ + + + | Anion Gap | 16.4 | 7 - 21 mmol/L | EXTERNAL | | | | | | LAB | | + +---------+ + + + | eGFR if not | | | EXTERNAL | | | | | | LAB | | | [facility] | | | | | + +---------+ + + + | Phosphorus, | 2.9 | 2.5 - 5.0 | EXTERNAL | | | Inorganic | | | LAB | | + +---------+ + + + | BUN/Creatin | 16.2 | 6.0 - 28.6 | EXTERNAL | | | ine Ratio | | | LAB | | + +---------+ + + + | Calcium | 9.1 | 8.4 - 10.2 | EXTERNAL | | | | | mg/dL | LAB | | + +---------+ + + + | Estimated | 52 | mg/dL | EXTERNAL | | | [...]
--- OUTSIDE RECORDS SUMMARY | ~2019-10-04 | XMS | Encounter Summary ---
Demographics + + + | Address | [address] | | | [place] [address] | + + + | Home Phone | | + + + | Preferred Language | Unknown | + + + | Marital Status | | + + + | Druze Affiliation | Unknown | + + + | Race | Unknown | + + + | Ethnic Group | Unknown | + + + Author + + + | Author | [facility] | | | and [place] | + + + | Organization | [facility] | | | and [place] | + + + | Address | Unknown | + + + | Phone | Unavailable | + + + Support + + + + + | Name | Relationship | Address | Phone | + + + + + | Last [place] | ECON | [address] | | | | | [place] | | | | | [address] | | + + + + + Care Team Providers + +------+ + | Care Deputy Assessor Name | Role | Phone | + +------+ + | Marilee Whaley | PCP | | | PA | | | + +------+ + Encounter Details +--------+ + + + + | Date | Type | Department | Care Team | Description | +--------+ + + + + | 10/10/ | Orders Only | [facility] | Conversion | | | 2015 | | NEPHROLOGY [place] | Transaction, | | | | | [address] [facility] | Provider Unknown | | | | | [place] | | | | | | [phone] | (Fax) | | | | | [phone] | | | +--------+ + + + [...] 2019 | Visit | | [address] [facility] | | | | | | [address] [place], [place] | | | | | | [address] | | | | | | | | +--------+ + + + + | 12/29/ | Procedure | Cardiology | | | | 2019 | visit | | | | +--------+ + + + + | 03/30/ | Procedure | Cardiology | | | | 2020 | visit | | | | +--------+ [...] | EXTERNAL LAB: CBC | Routin | 10/10/2016 | | Results for this | | | e | 12:15 PM | | procedure are in the | | | | PST | | results section. | + +--------+ + + + | VITAMIN D, | Routin | 10/10/2016 | | Results for this | | DEFICIENCY SCREEN | e | 12:15 PM | | procedure are in the | | (25-HYDROXY) | | PST | | results section. | + +--------+ + + + | URINALYSIS, | Routin | 10/10/2016 | | Results for this | | MICROSCOPIC ONLY | e | 12:15 PM | | procedure are in the | | | | PST | | results section. | + +--------+ + + + | PARATHYROID HORMONE, | Routin | 10/10/2016 | | Results for this | | INTACT AND CALCIUM | e | 12:15 PM | | procedure are in the | | | | PST | | results section. | + +--------+ + + + | PROTEIN/CREATININE | Routin | 10/10/2016 | | Results for this | | RATIO, URINE | e | 12:15 PM | | procedure are in the | | | | PST | | results section. | + +--------+ + + + | URIC ACID | Routin | 10/10/2016 | | Results for this | | | e | 12:15 PM | | procedure are in the | | | | PST | | results section. | + +--------+ + + + | MAGNESIUM | Routin | 10/10/2016 | | Results for this | | | e | 12:15 PM | | procedure are in the | | | | PST | | results section. | + +--------+ + + + | RENAL FUNCTION PANEL | Routin | 10/10/2016 | | Results for this | | | e | 12:15 PM | | procedure are in the | | | | PST | | results section. | + +--------+ + + + | COMPREHENSIVE | Routin | 10/10/2016 | | Results for this | | METABOLIC PANEL | e | 12:15 PM | | procedure are in the | | | | PST | | results section. | + +--------+ + + + documented in this encounter Results Parathyroid Hormone, Intact and Calcium (10/10/2016 12:15 PM PST) + +-------+ + + + | Component | Value | Ref Range | Performed | Pathologist | | | | | At | Signature | + +-------+ + + + | PTH Intact | 61.38 | 15 - 65 | EXTERNAL | | | | | | LAB | | + +-------+ + + + | Calcium | 9.7 [...] + +---------+ + + Protein/Creatinine Ratio, Urine (10/10/2016 12:15 PM PST) + +-------+ + + + | Component | Value | Ref Range | Performed | Pathologist | | | | | At | Signature | + +-------+ + + + | Protein/Cre | 101.9 | 0 - 150 | EXTERNAL | [...] + + Vitamin D, Deficiency Screen (25-Hydroxy) (10/10/2016 12:15 PM PST) + +-------+ + + + | Component | Value | Ref Range | Performed | Pathologist | | | | | At | Signature | + +-------+ + + + | Vit D, | 47 | 30 - 100 | EXTERNAL | [...] + +---------+ + + Urinalysis, Microscopic Only (10/10/2016 12:15 PM PST) + + + + + [...] + + + + | Specific | 1.013 | 1.005 - 1.030 | EXTERNAL | | | [place] | | | LAB | | + + + + + + | Leukocyte | Negative | | EXTERNAL | | | Esterase, [...] + + + + | Ketones | ne | | EXTERNAL | | | | [...] + +---------+ + + External Lab: CBC (10/10/2016 12:15 PM PST) + +-------+ + + + | Component | Value | Ref Range | Performed | Pathologist | | | | | At | Signature | + +-------+ + + + | WBC | 6.1 | 4.5 - 11.0 10 | EXTERNAL | | | | | | LAB | | + +-------+ + + + | RED CELL | 4.14 | 3.8 - 5.1 10 | EXTERNAL | | | COUNT | | | LAB | | + +-------+ + + + | Hgb | 12.1 | 12.0 - 16.0 | EXTERNAL | | | | | g/dL | LAB | | + +-------+ + + + | Hematocrit, | 36.5 | 35 - 45 % | EXTERNAL | | | POC | | | LAB | | + +-------+ + + + | MCV | 88.0 | 81 - 99 fL | EXTERNAL | | | | | | LAB | | + +-------+ + + + | MCH | 29 | 27 - 33 pg | EXTERNAL | | | | | | LAB | | + +-------+ + + + | MCHC | 33 | 30 - 36 g/dL | EXTERNAL | | | | | | LAB | | + +-------+ + + + | Platelet | 275 | 140 - 440 K/ L | EXTERNAL | | | Count | | | LAB | | | Plasma | | | | | + +-------+ + + + | RDW-CV | | % | EXTERNAL | | [...] +-------+ + + + | % | | % | EXTERNAL | | | Lymphocytes | | | LAB | | + +-------+ + + + | % Monocytes | | % | EXTERNAL | | | | | | LAB | | + +-------+ + + + | % | | [...] | + +---------+ + + Uric Acid (10/10/2016 12:15 PM PST) + +---------+ + + + | Component | Value | Ref Range | Performed | Pathologist | | | | | At | Signature | + +---------+ + + + | Uric Acid | 8.3 (A) | 2.3 - 6.6 | EXTERNAL [...] | | + +---------+ + + Magnesium (10/10/2016 12:15 PM PST) + +-------+ + + + [...] + +---------+ + + Renal Function Panel (10/10/2016 12:15 PM PST) + +---------+ + + + | Component | Value | Ref Range | Performed | Pathologist | | | | | At | Signature | + +---------+ + + + | Glucose, | 103 (A) | 70 - 100 mg/dL | EXTERNAL | | | Fasting | | | LAB | | + +---------+ + + + | BUN | 29 (A) | 6 - 23 mg/dL | [...] +---------+ + + + | Albumin | 4.3 | 3.5 - 5.0 | EXTERNAL | | | | | | LAB | | + +---------+ + + + | Na | 137 | 132 - 143 | EXTERNAL | | | | | mmol/L | LAB | | + +---------+ + + + | K | 4.7 | 3.6 - 5.1 | EXTERNAL | | | | | mmol/L | LAB | | + +---------+ + + + | Cl | 101 | 95 - 112 mmol/L | EXTERNAL | | | | | | LAB | | + +---------+ + + + | CO2 | 23 | 19 - 31 mmol/L | EXTERNAL | | | | | | LAB | | + +---------+ + + + | Anion Gap | 17.7 | 7 - 21 mmol/L | EXTERNAL | | | | | | LAB | | + +---------+ + + + | eGFR if not | | | EXTERNAL | | | | | | LAB | | | CONGOLESE | | | | | + +---------+ + + + | Phosphorus, | 4.0 | 2.5 - 5.0 | EXTERNAL | | | Inorganic | | | LAB | | + +---------+ + + + | BUN/Creatin | 27.6 | 6.0 - 28.6 | EXTERNAL | | | ine Ratio | | | LAB | | + +---------+ + + + | Calcium | 9.7 [...] | | | + +---------+ + + Comprehensive Metabolic Panel (10/10/2016 12:15 PM PST) + +---------+ + + + | Component | Value | Ref Range | Performed | Pathologist | | | | | At | Signature | + +---------+ + + + | Glucose, | 103 (A) | 70 - 100 mg/dL | EXTERNAL | | | Fasting | | | LAB | | + +---------+ + + + | BUN | 29 (A) | 6 - 23 mg/dL | EXTERNAL | | | | | | LAB | | + +---------+ + + + | Creatinine | 1.05 | 0.70 - 1.18 | EXTERNAL | | | | | mg/dL | LAB | | + +---------+ + + + | BUN/Creatin | 27.6 | 6.0 - 28.6 | EXTERNAL | | | ine Ratio | | | LAB | | + +---------+ + + + | Calcium | 937 (A) | 8.4 - 10.2 | EXTERNAL | | | | | mg/dL | LAB | | + +---------+ + + + | Protein, | 6.7 | 6.0 - 8.0 g/dL | EXTERNAL | | | Total | | | LAB | | + +---------+ + + + | Albumin | 4.3 | 3.5 - 5.0 | EXTERNAL | | | | | | LAB | | + +---------+ + + + | Globulin | 2.4 | 1.8 - 3.5 | EXTERNAL | | | | | | LAB | | + +---------+ + + + | A/G Ratio | 1.8 | 1.1 - 2.4 | EXTERNAL | | | | | | LAB | | + +---------+ + + + | Bilirubin | 0.5 | 0.0 - 1.2 mg/dL | EXTERNAL | | | Total | | | LAB | | + +---------+ + + + | ALP, | 105 (A) | 30 128 | EXTERNAL | | | External | | | LAB | | + +---------+ + + + | ALT | 19 | 7 - 52 U/L | EXTERNAL | | | | | | LAB | | + +---------+ + + + | AST | 19 | 13 - 39 U/L | EXTERNAL | | | | | | LAB | | + +---------+ + + + | Na | 137 | 132 - 143 | EXTERNAL | | | | | mmol/L | LAB | | + +---------+ + + + | K | 4.7 | 3.6 - 5.1 | EXTERNAL | | | | | mmol/L | LAB | | + +---------+ + + + | Cl | 101 | 95 - 112 mmol/L | EXTERNAL | | | | | | LAB | | + +---------+ + + + | CO2 | 23 | 19 - 31 mmol/L | EXTERNAL | | | | | | LAB | | + +---------+ + + + | Anion Gap | 17.7 | 7 - 21 mmol/L | EXTERNAL [...]
--- OUTSIDE RECORDS SUMMARY | ~2019-10-04 | XMS | Encounter Summary ---
Demographics + + + | Address | [address] | | | [place] [address] | + + + | Home Phone | | + + + | Preferred Language | Unknown | + + + | Marital Status | | + + + | Oriental Orthodox Affiliation | Unknown | + + + | Race | Unknown | + + + | Ethnic Group | Unknown | + + + Author + + + | Author | [facility] | | | and [place] | + + + | Organization | [facility] | | | and [place] | + + + | Address | Unknown | + + + | Phone | Unavailable | + + + Support + + + + + | Name | Relationship | Address | Phone | + + + + + | Lsat Garner | ECON | [address] | | | | | [place] | | | | | [address] | | + + + + + Care Team Providers + +------+ + | Care Customs Investigator Name | Role | Phone | + +------+ + | Marilee Whaley | PCP | | | PA | | | + +------+ + Encounter Details +--------+ + + + + | Date | Type | Department | Care Team | Description | +--------+ + + + + | 07/10/ | Orders Only | [facility] | Jonathan Acosta MD | | | 2015 | | NEPHROLOGY [place] | [address] [place] | | | | | [address] [place] | [address] [place], [place] | | | | | [address] [place], [place] | [address] | | | | | [address] | | | | | | [phone] | | | +--------+ + + + [...] 2019 | Visit | | [address] [facility] | | | | | | [address] [place] | | | | | | [address] | | | | | | | [...] +--------+ + + + | EXTERNAL LAB: [facility] | Routin | 07/10/2016 | | Results for this | | | e | 9:30 AM | | procedure are in the | | | | PDT | | results section. | + +--------+ + + + | URINALYSIS, REFLEX | Routin | 07/10/2016 | | Results for this | | MICROSCOPIC AND/OR | e | 9:30 AM | | procedure are in the | | CULTURE | | PDT | | results section. | + +--------+ + + + | VITAMIN D, | Routin | 07/10/2016 | | Results for this | | DEFICIENCY SCREEN | e | 9:30 AM | | procedure are in the | | (25-HYDROXY) | | PDT | | results section. | + +--------+ + + + | PARATHYROID HORMONE, | Routin | 07/10/2016 | | Results for this | | INTACT AND CALCIUM | e | 9:30 AM | | procedure are in the | | | | PDT | | results section. | + +--------+ + + + | PROTEIN/CREATININE | Routin | 07/10/2016 | | Results for this | | RATIO, URINE | e | 9:30 AM | | procedure are in the | | | | PDT | | results section. | + +--------+ + + + | URIC ACID | Routin | 07/10/2016 | | Results for this | | | e | 9:30 AM | | procedure are in the | | | | PDT | | results section. | + +--------+ + + + | MAGNESIUM | Routin | 07/10/2016 | | Results for this | | | e | 9:30 AM | | procedure are in the | | | | PDT | | results section. | + +--------+ + + + | RENAL FUNCTION PANEL | Routin | 07/10/2016 | | Results for this | | | e | 9:30 AM | | procedure are in the | | | | PDT | | results section. | + +--------+ + + + documented in this encounter Results Urinalysis, Reflex Microscopic and/or Culture (07/10/2016 9:30 AM PDT) + + + + + [...] + + + | Spec Grav, | 1.008 | 1.005 - 1.030 | EXTERNAL | | | Fluid | | | LAB | | + + + + + + | Leukocyte | Comment: 100 | | EXTERNAL | | | Esterase, [...] + + + + | Total | Negative | | EXTERNAL | | | Protein [...] + + Parathyroid Hormone, Intact and Calcium (07/10/2016 9:30 AM PDT) + + + + + + | Component | Value | Ref Range | Performed | Pathologist | | | | | At | Signature | + + + + + + | PTH Intact | 104.4 (A) | 15 - 65 | EXTERNAL | | | | | | LAB | | + + + + + + | Calcium | 9.8 | 8.4 - 10.2 | EXTERNAL | [...] + +---------+ + + Protein/Creatinine Ratio, Urine (07/10/2016 9:30 AM PDT) + +-------+ + + + | Component | Value | Ref Range | Performed | Pathologist | | | | | At | Signature | + +-------+ + + + | Protein/Cre | 90.9 | 0 - 150 | EXTERNAL | [...] + + Vitamin D, Deficiency Screen (25-Hydroxy) (07/10/2016 9:30 AM PDT) + +-------+ + + + | Component | Value | Ref Range | Performed | Pathologist | | | | | At | Signature | + +-------+ + + + | Vit D, | 46 | 30 - 100 | EXTERNAL | [...] + +---------+ + + External Lab: CBC (07/10/2016 9:30 AM PDT) + + + + + + | Component | Value | Ref Range | Performed | Pathologist | | | | | At | Signature | + + + + + + | WBC | 7.0 | 4.5 - 11.0 10 | EXTERNAL | | | | | | LAB | | + + + + + + | RED CELL | 4.07 | 3.8 - 5.1 10 | EXTERNAL | | | COUNT | | | LAB | | + + + + + + | Hgb | 11.2 (A) | 12.0 - 16.0 | EXTERNAL | | | | | g/dL | LAB | | + + + + + + | Hematocrit, | 35.8 | 35 - 45 % | EXTERNAL | | | POC | | | LAB | | + + + + + + | MCV | 87.8 | 81 - 99 fL | EXTERNAL | | | | | | LAB | | + + + + + + | MCH | 28 | 27 - 33 pg | EXTERNAL | | | | | | LAB | | + + + + + + | MCHC | 31 | 30 - 36 g/dL | EXTERNAL | | | | | | LAB | | + + + + + + | Platelet | 372 | 140 - 440 K/ L | EXTERNAL | | | Count | | | LAB | | | Plasma | | | | | + + + + + + | RDW-CV | | [...] | + +---------+ + + Uric Acid (07/10/2016 9:30 AM PDT) + +---------+ + + + | Component | Value | Ref Range | Performed | Pathologist | | | | | At | Signature | + +---------+ + + + | Uric Acid | 9.6 (A) | 2.3 - 6.6 | EXTERNAL [...] | | + +---------+ + + Magnesium (07/10/2016 9:30 AM PDT) + +-------+ + + + | Component | Value | Ref Range | Performed | Pathologist | | | | | At | Signature | + +-------+ + + + | Magnesium | 1.9 | 1.7 - 2.5 mg/dL | EXTERNAL [...] + +---------+ + + Renal Function Panel (07/10/2016 9:30 AM PDT) + + + + + + | Component | Value | Ref Range | Performed | Pathologist | | | | | At | Signature | + + + + + + | Glucose, | 105 (A) | 70 - 100 mg/dL | EXTERNAL | | | Fasting | | | LAB | | + + + + + + | BUN | 27 (A) | 6 - 23 mg/dL | EXTERNAL | | | | | | LAB | | + + + + + + | Creatinine | 1.30 (A) | 0.70 - 1.18 | EXTERNAL | | | | | mg/dL | LAB | | + + + + + + | PHOSPHORUS | | mg/dL | EXTERNAL | | | | | | LAB | | + + + + + + | Albumin | 4.1 | 3.5 - 5.0 | EXTERNAL | | | | | | LAB | | + + + + + + | Na | 138 | 132 - 143 | EXTERNAL | | | | | mmol/L | LAB | | + + + + + + | K | 5.6 (A) | 3.6 - 5.1 | EXTERNAL | | | | | mmol/L | LAB | | + + + + + + | Cl | 100 | 95 - 112 mmol/L | EXTERNAL | | | | | | LAB | | + + + + + + | CO2 | 26 | 19 - 31 mmol/L | EXTERNAL | | | | | | LAB | | + + + + + + | Anion Gap | 17.6 | 7 - 21 mmol/L | EXTERNAL | | | | | | LAB | | + + + + + + | eGFR if not | | | EXTERNAL | | | | | | LAB | | | [place] | | | | | + + + + + + | Phosphorus, | 3.7 | 2.5 - 5.0 | EXTERNAL | | | Inorganic | | | LAB | | + + + + + + | BUN/Creatin | 20.8 | 6.0 - 28.6 | EXTERNAL | | | ine Ratio | | | LAB | | + + + + + + | Calcium | 9.8 | 8.4 - 10.2 | EXTERNAL | | | | | mg/dL | LAB | | + + + + + + | Estimated | 40 | mg/dL | EXTERNAL | | | [...]
--- OUTSIDE RECORDS SUMMARY | ~2019-10-04 | XMS | Encounter Summary ---
Demographics + + + | Address | [address] | | | [place] [address] | + + + | Home Phone | | + + + | Preferred Language | Unknown | + + + | Marital Status | | + + + | Zoroastrianism Affiliation | Unknown | + + + | Race | Unknown | + + + | Ethnic Group | Unknown | + + + Author + + + | Author | [facility] | | | and [place] | + + + | Organization | [facility] | | | and [place] | + + + | Address | Unknown | + + + | Phone | Unavailable | + + + Support + + + + + | Name | Relationship | Address | Phone | + + + + + | Last Kishorcarlos | ECON | [address] | | | | | [place] | | | | | [address] | | + + + + + Care Team Providers + +------+ + | Care Nutrition Aides Teacher Name | Role | Phone | + +------+ + | Marilee Whaley | PCP | | | PA | | | + +------+ + Reason for Visit + + + | Reason | Comments | + + + | Follow-up | | + + + Encounter Details +--------+---------+ + + + | Date | Type | Department | Care Team | Description | +--------+---------+ + + + | 09/09/ | Office | [facility] | Valerie Escalera, ANP | Third degree AV | | 2019 | Visit | CARDIOLOGY [place]EY | [address] | block ([facility]) (Primary | | | | [address] | [place], [place] | Dx); Pacemaker | | | | [place], [place] | [address] | | | | | [address] | | | | | | [phone] | | | +--------+---------+ + + + Social History + +-------+ [...] + + documented as of this encounter Last Filed Vital Signs + + + + + | Vital Sign | Reading | Time Taken | Comments | + + + + + | Blood Pressure | 136/66 | 09/09/2019 3:40 PM | | | | | PST | | + + + + + | Pulse | 86 | 09/09/2019 3:40 PM | | | | | PST | | + + + + + | Temperature | - | - | | + + + + + | Respiratory Rate | - | - | | + + + + + | Oxygen Saturation | 94% | 09/09/2019 3:40 PM | | | | | PST | | + + + + + | Inhaled Oxygen | - | - | | | Concentration | | | | + + + + + | Weight | 119.8 kg (264 lb 3.2 | 09/09/2019 3:40 PM | | | | oz) | PST | | + + + + + | Height | 157.5 cm (5' 2") | 09/09/2019 3:40 PM | | | | | PST | | + + + + + | Body Mass Index | 48.32 | 09/09/2019 3:40 PM | | | | | PST | | + + + + + documented in this encounter Progress Notes Valerie Escalera ANP - 09/09/2019 3:15 PM PST ELECTROPHYSIOLOGY OUTPATIENT FOLLOW UP PATIENT NAME: Felicitas Garner : 1945: AGE: 73 y.o. (home) : PRIMARY CARE: [facility] Requesting Physician: No referring provider defined for this encounter. 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 Bradycardia Chronic idiopathic gout of multiple sites Chronic kidney disease, stage III (moderate) Drug toxicity Essential hypertension, benign Overview Recommend increasing metoprolol 50 mg twice a day. Stop Lasix, potassium, and amlodipine. Increase losartan to 50 mg daily at bedtime. She looks dry. Hypomagnesemia Normocytic anemia Pacemaker Overview 11/21/2018 DDD SJM PPM implanted for symptomatic CHB 11/20/18 09/09/2019 She feels much better with the pacemaker. Appropriate device function. There were no arrhyt hmias. The pacing threshold was 0.75 V at 0.5 ms in the atrium and 0.75 V at 0.6 ms in the R V. R waves were 4.5 mV and P waves were 4 mV. The underlying rhythm was NSR 80s. Stable lead threshold(s), impedance and battery status. Device was adjusted to optimize battery length while maintaining adequate safety margins. On last visit, she was dependent in complete hear t block. Now RV pacing 1.8% Renal mass, left Third degree AV block Overview Complete heart block noted, HR 30s-40s, highly symptomatic with associated shortness of b reath. No reversible cause noted. The patient required urgent pacemaker implantation 11/20/18 . LVEF 70%, no significant valvular abnormality. Type 2 diabetes mellitus with diabetic nephropathy COMPREHENSIVE PROBLEM LIST Patient Active Problem List Diagnosis Date Noted Hemorrhage of cyst of [place] kidney 06/23/2019 Pacemaker 11/21/2018 Note Last Updated: 09/09/2019 11/21/2018 DDD SJM PPM implanted for symptomatic CHB 11/20/18 09/09/2019 She feels much better with the pacemaker. Appropriate device function. There were no arrhyt hmias. The pacing threshold was 0.75 V at 0.5 ms in the atrium and 0.75 V at 0.6 ms in the R V. R waves were 4.5 mV and P waves were 4 mV. The underlying rhythm was NSR 80s. Stable lead threshold(s), impedance and battery status. Device was adjusted to optimize battery length while maintaining adequate safety margins. On last visit, she was dependent in complete hear t block. Now RV pacing 1.8% Bradycardia 11/20/2018 Drug toxicity 11/20/2018 BMI 45.0-49.9, adult (HCC) 11/19/2018 Note Last Updated: 09/09/2019 Weight loss was recommended. Third degree AV block (HCC) 11/19/2018 Note Last Updated: 09/09/2019 Complete heart block noted, HR 30s-40s, highly symptomatic with associated shortness of b reath. No reversible cause noted. The patient required urgent pacemaker implantation 11/20/18 . LVEF 70%, no significant valvular abnormality. Hypomagnesemia 07/27/2017 Normocytic anemia 05/04/2017 Chronic idiopathic gout of multiple sites 01/10/2016 Adenoma of right adrenal gland 11/16/2015 Chronic kidney disease, stage III (moderate) ([facility]) 11/16/2015 Essential hypertension, benign 11/16/2015 Note Last Updated: 09/09/2019 Recommend increasing metoprolol 50 mg twice a day. Stop Lasix, potassium, and amlodipine. Increase losartan to 50 mg daily at bedtime. She looks dry. Renal mass, left 11/16/2015 Type 2 diabetes mellitus with diabetic nephropathy ([facility]) 11/16/2015 HISTORY OF PRESENT ILLNESS This patient presents 09/09/2019 Reporting doing well. No chest pain or palpitations. No s hortness of breath, PND or orthopnea. No signs or symptoms of bleeding. Compliant with medic ations. No Known Allergies Current Medications Current Outpatient Medications: acetaminophen (TYLENOL) 500 mg tablet, Take 1,000 mg by mouth every 6 hours as needed for Pain., Disp: , Rfl: allopurinol (ZYLOPRIM) 100 mg tablet, Take 100 mg by mouth Daily., Disp: , Rfl: ascorbic acid (VITAMIN C) 1000 MG tablet, Take 3,000 mg by mouth., Disp: , Rfl: aspirin 81 mg EC tablet, Take 81 mg by mouth Daily., Disp: , Rfl: cholecalciferol (VITAMIN D-3) 50 mcg (2,000 units) tablet, Take 50 mcg by mouth Daily. , Disp: , Rfl: diphenhydrAMINE (BENADRYL) 25 mg tablet, Take 25 mg by mouth Daily as needed for Itchi ng., Disp: , Rfl: fish oil 1,000 mg capsule, Take 1 g by mouth., Disp: , Rfl: furosemide (LASIX) 20 mg tablet, Take 20 mg by mouth 2 times daily., Disp: , Rfl: losartan (COZAAR) 50 mg tablet, Take 50 mg by mouth., Disp: , Rfl: MAG64 64 MG EC tablet, TAKE 2 TABLETS BY MOUTH ONCE DAILY, Disp: , Rfl: 3 metFORMIN (GLUCOPHAGE) 1000 MG tablet, Take 1,000 mg by mouth 2 times daily (with marta kfast & dinner)., Disp: , Rfl: metoprolol tartrate (LOPRESSOR) 25 mg tablet, Take 25 mg by mouth 2 times daily., Disp : , Rfl: nitroglycerin (NITROSTAT) 0.4 mg SL tablet, Place 0.4 mg under the tongue., Disp: , Rf l: simvastatin (ZOCOR) 20 mg tablet, Take 20 mg by mouth., Disp: , Rfl: The past history, social history, family history and problem list were reviewed and update d with changes of any significance. DATA Laboratory values which I reviewed 09/09/2019 are as follows: Lab Results Component Value Date WBC 6.1 05/26/2019 RBC 3.97 05/26/2019 HGB 11.7 (A) 05/26/2019 Lab Results Component Value Date NA 139 05/26/2019 K 4.6 05/26/2019 CL 102 05/26/2019 CO2 22 05/26/2019 ANIONGAP 19.6 05/26/2019 GLUF 118 (A) 05/26/2019 BUN 50 (A) 05/26/2019 BCR 36.9 (A) 05/26/2019 EGFR 38 (A) 05/26/2019 Lab Results Component Value Date CHOL 220 09/14/2016 TRIG 259 (A) 09/14/2016 GLUF 118 (A) 05/26/2019 Lab Results Component Value Date BNP 683 (H) 11/19/2018 ROS I have personally reviewed and agree with ROS listed by SLOAN cruz. All other systems are reviewed and negative. PHYSICAL EXAM BP 136/66 | Pulse 86 | Ht 1.575 m (5' 2") | Wt 119.8 kg (264 lb 3.2 oz) | SpO2 94% | B DE 48.32 kg/m Physical Exam Constitutional: She is oriented to person, place, and time. She appears well-developed and well-nourished. HENT: Head: Normocephalic and atraumatic. Eyes: Pupils are equal, round, and reactive to light. Neck: No JVD present. No thyromegaly present. Cardiovascular: Normal rate and regular rhythm. No murmur heard. Pulmonary/Chest: Effort normal and breath sounds normal. She has no rales. Abdominal: Soft. Bowel sounds are normal. There is no tenderness. Musculoskeletal: General: No edema. Neurological: She is alert and oriented to person, place, and time. Skin: Skin is warm and dry. Device incision line is well approximated with no e/o infection or complication. Psychiatric: She has a normal mood and affect. Vitals reviewed. SO Gutiérrez 09/09/2019 3:57 PM *This report has been prepared using a voice recognition system. The report was reviewed f or accuracy, however, sound-alike word errors, addition and/or deletions may occur. If there is any question about this report please contact me. Patient Instructions No notes on file Sandra Neely Medic al Concrete Gun Operator - 09/09/2019 3:15 PM Kareem LISA Note- Electrophysiology Patient ID: Felicitas Garner is a 73 y.o. female. Review of Systems Constitutional: Negative for chills, fever, malaise/fatigue and weight loss. HENT: Negative for congestion and sore throat. Respiratory: Negative for cough and shortness of breath. Cardiovascular: Negative for chest pain, palpitations and leg swelling. Gastrointestinal: Negative for abdominal pain and blood in stool. Genitourinary: Negative for hematuria. Musculoskeletal: Negative for myalgias. Neurological: Negative for dizziness, sensory change and loss of consciousness. Have you ever had a sleep study? (NO) Do you use oxygen? (NO) Do you use CPAP? (NO) Do you snore? (NO) Do you fall asleep for no reason during the day? (NO) Do you stop breathing at night? (NO) Do you feel excessively tired during the day? (YES) Shelly ented in this encounter Plan of Treatment +--------+ + + + + | Date | Type | Specialty | Care Team | Description | +--------+ + + + + | 12/15/ | Office | Nephrology | Jonathan Acosta MD | | | 2019 | Visit | | [address] [facility] | | | | | | [address] [place] | | | | | | [address] | | | | | | | [...] | + +--------+ + + + | ECG 12 LEAD | Routin | 09/09/2019 | Third degree AV | Results for this | | | e | 3:38 PM | block (HCC) | procedure are in the | | | | PST | | results section. | + +--------+ + + + documented in this encounter Results ECG 12 lead (09/09/2019 3:38 PM PST) + + + + + + | Component | Value | Ref Range | Performed | Pathologist | | | | | At | Signature | + + + + + + | VENTRICULAR | 84 | BPM | [facility] | | | RATE EKG | | | | | + + + + + + | ATRIAL RATE | 84 | BPM | [facility] | | + + + + + + | P-R | 152 | ms | [facility] | | | INTERVAL | | | | | + + + + + + | QRS | 120 | ms | [facility] | | | DURATION | | | | | + + + + + + | Q-T | 414 | ms | [facility] | | | INTERVAL | | | | | + + + + + + | Q-T | 489 | ms | [facility] | | | INTERVAL | | | | | | (CORRECTED) | | | | | + + + + + + | QRS AXIS | -117 | degrees | [facility] | | + + + + + + | T AXIS | 180 | degrees | [facility] | | + + + + + + | INTERPRETAT | Please refer to | | [facility] | | | ION TEXT | Providers office visit | | | | | | note for Providers | | | | | | Interpretation.Confirmed | | | | | | by [facility] [place] Read Only, | | | | | | [facility] Susan ([id number]), | | | | | | newspaper copy editor Giovanni Cerda | | | | | | ([id number]) on 09/10/2019 | | | | | | 7:52:31 AM | | | | + + + + + + + + | Specimen | + + | | + + + + + | Narrative | Performed At | + + + | | | + + + + +---------+ + + | Performing | Address | City/State/Zipcode | Phone Number | | Organization | | | | + +---------+ + + | [facility] | | | | + +---------+ + + documented in this encounter Visit Diagnoses + + | Diagnosis | + + | Third degree AV block (HCC) - Primary Atrioventricular block, complete | + + | Pacemaker Cardiac pacemaker in situ | + + documented in this encounter
--- OUTSIDE RECORDS SUMMARY | ~2019-10-04 | XMS | Encounter Summary ---
Demographics + + + | Address | [address] | | | [place] [address] | + + + | Home Phone | | + + + | Preferred Language | Unknown | + + + | Marital Status | | + + + | Anabaptist Affiliation | Unknown | + + + | Race | Unknown | + + + | Ethnic Group | Unknown | + + + Author + + + | Author | [facility] | | | and [place] | + + + | Organization | [facility] | | | and [place] | + + + | Address | Unknown | + + + | Phone | Unavailable | + + + Support + + + + + | Name | Relationship | Address | Phone | + + + + + | Last Kishorcarlos | ECON | [address] | | | | | [place] | | | | | [address] | | + + + + + Care Team Providers + +------+ + | Care Powder Coater Name | Role | Phone | + +------+ + | Marilee Whaley | PCP | | | PA | | | + +------+ + Reason for Referral Evaluate & Treat + + + + + + + | Status | Reason | Specialty | Diagnoses / | Referred By | Referred To | | | | | Procedures | Contact | Contact | + + + + + + + | Authorized | Specialty | Urology | Diagnoses | Silvano, | Delfino, | | | Services | | Hemorrhage | Rod, | Aminta [place], | | | Required | | of cyst of | VICTORIAN LITERATURE PROFESSOR [address] | [place] [address] | | | | | lummi | [address] | [place] | | | | | kidney | [address] | [place], [place] | | | | | | [place], | [address] | | | | | | [place] | Phone: | | | | | | [address] | [phone] | | | | | | Phone: | Fax: | | | | | | [phone] | [phone] | | | | | | Fax: | | | | | | | [phone] | | + + + + + + + + + | Scheduling Instructions | + + | Please send to Urology in [place] [facility]. Dr. Payan | + + Reason for Visit + + + | Reason | Comments | + + + | Referral Consult | | + + + Encounter Details +--------+ + + + + | Date | Type | Department | Care Team | Description | +--------+ + + + + | 06/23/ | Telephone | [facility] | Rod Schaefer, | Referral Consult | | 2019 | | NEPRHOLOGY [place] | VICTORIAN LITERATURE PROFESSOR [address] | | | | | [address] | [place] | | | | | [address] [place] | [place] | | | | | [address] | [address] | | | | | [phone] | | | | | | | [...] 2019 | Visit | | [address] [facility] | | | | | | [address] [place], [place] | | | | | | [address] | | | | | | | [...] | +--------+ + + + + + + +--------+ + + | Name | Type | Priori | Associated Diagnoses | Order Schedule | | | | ty | | | + + +--------+ + + | Ambulatory referral | Outpatient | Routin | Hemorrhage of cyst | Ordered: 06/23/2019 | | to Urology | Referral | e | of lummi kidney | | + + +--------+ + + documented as of this encounter Visit Diagnoses + + | Diagnosis | + + | Chronic kidney disease, stage III (moderate) (HCC) - Primary Chronic kidney disease, | | Stage III (moderate) | + + | Hemorrhage of cyst of lummi kidney Vascular disorders of kidney | + + documented in this encounter"
--- OUTSIDE RECORDS SUMMARY | ~2019-10-04 | XMS | Encounter Summary ---
Demographics + + + | Address | [address] | | | [place] [address] | + + + | Home Phone | | + + + | Preferred Language | Unknown | + + + | Marital Status | | + + + | Anabaptism Affiliation | Unknown | + + + | Race | Unknown | + + + | Ethnic Group | Unknown | + + + Author + + + | Author | [facility] | | | and [place] | + + + | Organization | [facility] | | | and [place] | + + + | Address | Unknown | + + + | Phone | Unavailable | + + + Support + + + + + | Name | Relationship | Address | Phone | + + + + + | Last Garner | ECON | [address] | | | | | [place] | | | | | [address] | | + + + + + Care Team Providers + +------+ + | Care Tile Fitter Name | Role | Phone | + +------+ + | Marilee Whaley | PCP | | | PA | | | + +------+ + Encounter Details +--------+ + + + + | Date | Type | Department | Care Team | Description | +--------+ + + + + | 11/01/ | Orders Only | [facility] | Rod Schaefer, | | | 2018 | | [facility]OLOGY [facility] | WATER TAXI CAPTAIN [address] | | | | | [address] | [place] | | | | | [address] [place], [place] | [place] | | | | | [address] | [address] | | | | | [phone] | [phone] | | | | | | | [...] [place] | | | | | | [address] | | | | | | | [...] | EXTERNAL LAB: CBC | Routin | 11/01/2018 | | Results for this | | | e | 12:40 PM | | procedure are in the | | | | PST | | results section. | + +--------+ + + + | URINALYSIS WITH | Routin | 11/01/2018 | | Results for this | | MICROSCOPIC IF | e | 12:40 PM | | procedure are in the | | INDICATED | | PST | | results section. | + +--------+ + + + | PROTEIN/CREATININE | Routin | 11/01/2018 | | Results for this | | RATIO, URINE | e | 12:40 PM | | procedure are in the | | | | PST | | results section. | + +--------+ + + + | URIC ACID | Routin | 11/01/2018 | | Results for this | | | e | 12:40 PM | | procedure are in the | | | | PST | | results section. | + +--------+ + + + | MAGNESIUM | Routin | 11/01/2018 | | Results for this | | | e | 12:40 PM | | procedure are in the | | | | PST | | results section. | + +--------+ + + + | RENAL FUNCTION PANEL | Routin | 11/01/2018 | | Results for this | | | e | 12:40 PM | | procedure are in the | | | | PST | | results section. | + +--------+ + + + documented in this encounter Results Protein/Creatinine Ratio, Urine (11/01/2018 12:40 PM PST) + + + + + + | Component | Value | Ref Range | Performed | Pathologist | | | | | At | Signature | + + + + + + | Protein/Cre | Comment: Urine total | | EXTERNAL | | | at Ratio | protein verified by | | LAB | | | | repeat analysis | | | | + + + + + + + + | Specimen | + + | Urine specimen | | (specimen) | + + + +---------+ + + | Performing | Address | City/State/Zipcode | Phone Number | | Organization | | | | + +---------+ + + | EXTERNAL LAB | | | | + +---------+ + + Urinalysis with Microscopic if Indicated (11/01/2018 12:40 PM PST) + + + + + + | Component | Value | Ref Range | Performed | Pathologist | | | | | At | Signature | + + + + + + | Color | Colorless | | EXTERNAL | | | | | | LAB | | + + + + + + | Clarity | Clear | | EXTERNAL | | | | | | LAB | | + + + + + + | Spec Grav, | 1.006 | 1.005 - 1.030 | EXTERNAL | | | Fluid | | | LAB | | + + + + + + | Leukocyte | TraceComment: Small | | EXTERNAL | | | Esterase, [...] + +---------+ + + External Lab: CBC (11/01/2018 12:40 PM PST) + +-------+ + + + | Component | Value | Ref Range | Performed | Pathologist | | | | | At | Signature | + +-------+ + + + | WBC | 5.1 | 4.5 - 11.0 10 | EXTERNAL | | | | | | LAB | | + +-------+ + + + | RED CELL | 4.17 | 3.8 - 5.1 10 | EXTERNAL | | | COUNT | | | LAB | | + +-------+ + + + | Hgb | 12.3 | 12.0 - 16.0 | EXTERNAL | | | | | g/dL | LAB | | + +-------+ + + + | Hematocrit, | 37.7 | 35 - 45 % | EXTERNAL | | | POC | | | LAB | | + +-------+ + + + | MCV | 90.3 | 81 - 99 fL | EXTERNAL [...] +-------+ + + + | Platelet | 242 | 140 - 440 K/ L | [...] | + +---------+ + + Uric Acid (11/01/2018 12:40 PM PST) + +---------+ + + + | Component | Value | Ref Range | Performed | Pathologist | | | | | At | Signature | + +---------+ + + + | Uric Acid | 8.4 (A) | 2.6 - 6.6 | EXTERNAL | | | [...] | | + +---------+ + + Magnesium (11/01/2018 12:40 PM PST) + +---------+ + + + | Component | Value | Ref Range | Performed | Pathologist | | | | | At | Signature | + +---------+ + + + | Magnesium | 1.6 (A) | 1.7 - 2.5 mg/dL | EXTERNAL [...] + +---------+ + + Renal Function Panel (11/01/2018 12:40 PM PST) + + + + + + | Component | Value | Ref Range | Performed | Pathologist | | | | | At | Signature | + + + + + + | Glucose, | 195 (A) | 70 - 100 mg/dL | EXTERNAL | | | Fasting | | | LAB | | + + + + + + | BUN | 23 | 6 - 23 mg/dL | EXTERNAL | | | | | | LAB | | + + + + + + | Creatinine | 1.13 | 0.70 - 1.18 | EXTERNAL | | | | | mg/dL | LAB | | + + + + + + | PHOSPHORUS | 3.3 | 2.5 - 5.0 mg/dL | EXTERNAL | | | | | | LAB | | + + + + + + | Albumin | 4.3 | 3.5 - 5.0 | EXTERNAL | | | | | | LAB | | + + + + + + | Na | 142 | 132 - 143 | EXTERNAL | | | | | mmol/L | LAB | | + + + + + + | K | 4.4 | 3.6 - 5.1 | EXTERNAL | | | | | mmol/L | LAB | | + + + + + + | Cl | 103 | 95 - 112 mmol/L | EXTERNAL | | | | | | LAB | | + + + + + + | CO2 | 21 | 19 - 31 mmol/L | EXTERNAL | | | | | | LAB | | + + + + + + | Anion Gap | 22.4 (A) | 7 - 21 mmol/L | EXTERNAL | | | | | | LAB | | + + + + + + | eGFR if not | | | EXTERNAL | | | | | | LAB | | | KYRGYZ | | | | | + + + + + + | Phosphorus, | | | EXTERNAL | | | Inorganic | | | LAB | | + + + + + + | BUN/Creatin | 20.4 | 6.0 - 28.6 | EXTERNAL | | | ine Ratio | | | LAB | | + + + + + + | Calcium | 9.2 | 8.5 - 10.3 | EXTERNAL | | | | | mg/dL | LAB | | + + + + + + | Estimated | 47 (A) | 60 - 140 mg/dL | [...]
--- OUTSIDE RECORDS SUMMARY | ~2019-10-04 | XMS | Encounter Summary ---
Demographics + + + | Address | [address] | | | [place] [address] | + + + | Home Phone | | + + + | Preferred Language | Unknown | + + + | Marital Status | | + + + | Christianity Affiliation | Unknown | + + + | Race | Unknown | + + + | Ethnic Group | Unknown | + + + Author + + + | Author | [facility] | | | and [place] | + + + | Organization | [facility] | | | and [place] | + + + | Address | Unknown | + + + | Phone | Unavailable | + + + Support + + + + + | Name | Relationship | Address | Phone | + + + + + | Last Garner | ECON | [address] | | | | | [place] | | | | | [address] | | + + + + + Care Team Providers + +------+ + | Care Apparel Machinery Instructor Name | Role | Phone | + +------+ + | Marilee Whaley | PCP | | | PA | | | + +------+ + Encounter Details +--------+ + + + + | Date | Type | Department | Care Team | Description | +--------+ + + + + | 06/24/ | Orders Only | [facility] | Eitananupama Rowan | | | 2018 | | NEPRHOLOGY [place] | V, Medical | | | | | [address] | Beauty Culturist | | | | | [address] [place], [place] | | | | | | [address] | | | | | | [phone] | | | +--------+ + + + [...] 2019 | Visit | | [address] [facility] | | | | | | [facility] | | | | | [address] | | | | | | | [...]
--- OUTSIDE RECORDS SUMMARY | ~2019-10-04 | XMS | Encounter Summary ---
Demographics + + + | Address | [address] | | | [place] [address] | + + + | Home Phone | | + + + | Preferred Language | Unknown | + + + | Marital Status | | + + + | Pentecostalism Affiliation | Unknown | + + + | Race | Unknown | + + + | Ethnic Group | Unknown | + + + Author + + + | Author | [facility] | | | and [place] | + + + | Organization | [facility] | | | and [place] | + + + | Address | Unknown | + + + | Phone | Unavailable | + + + Support + + + + + | Name | Relationship | Address | Phone | + + + + + | Last Kishorcarlos | ECON | [address] | | | | | [place] | | | | | [address] | | + + + + + Care Team Providers + +------+ + | Care Staff Climate Scientist Name | Role | Phone | + +------+ + | Marilee Whaley | PCP | | | PA | | | + +------+ + Encounter Details +--------+ + + + + | Date | Type | Department | Care Team | Description | +--------+ + + + + | 06/12/ | Hospital | [facility] | Conversion | Mass of left kidney | | 2019 | Encounter | [facility] | Transaction, | | | | | [address] | Provider Unknown | | | | | [place], [place] | | | | | | [address] | (Fax) | | | | | [phone] | | | +--------+ + + + [...] + + + | Blood Pressure | - | - | | + + + + + | Pulse | - | - | | + + + + + | Temperature | - | - | | + + + + + | Respiratory Rate | - | - | | + + + + + | Oxygen Saturation | - | - | | + + + + + | Inhaled Oxygen | - | - | | | Concentration | | | | + + + + + | Weight | 113.4 kg (250 lb) | 06/12/2019 9:17 AM | | | | | PDT | | + + + + + | Height | - | - | | + + + + + | Body Mass Index | 45.73 | 05/28/2019 2:38 PM | | | | | PDT | | + + + + + documented in this encounter Medications at Time of Discharge + + + +---------+ + + | Medication | Sig | Dispensed | Refills | Start | End Date | | | | | | Date | | + + + +---------+ + + | allopurinol | Take 100 mg by mouth | | 0 | | | | (ZYLOPRIM) 100 mg | Daily. | | | | | | tablet | | | | | | + + + +---------+ + + | furosemide (LASIX) | Take 20 mg by mouth | | 0 | | | | 20 mg tablet | 2 times daily. | | | | | + + + +---------+ + + | losartan (COZAAR) | Take 50 mg by mouth. | | 0 | 01/03/20 | | | 50 mg tablet | | | | 19 | 0 | + + + +---------+ + + | MAG64 64 MG EC | TAKE 2 TABLETS BY | | 3 | 05/23/20 | | | tablet | MOUTH ONCE DAILY | | | 19 | | + + + +---------+ + + | metFORMIN | Take 1,000 mg by | | 0 | | | | (GLUCOPHAGE) 1000 MG | mouth 2 times daily | | | | | | tablet | (with breakfast & | | | | | | | dinner). | | | | | + + + +---------+ + + | metoprolol | Take 25 mg by mouth | | 0 | | | | tartrate (LOPRESSOR) | 2 times daily. | | | | | | 25 mg tablet | | | | | | + + + +---------+ + + | nitroglycerin | Place 0.4 mg under | | 0 | 11/21/19 | | | (NITROSTAT) 0.4 mg | the tongue. | | | 19 | 0 | | SL tablet | | | | | | + + + +---------+ + + | simvastatin | Take 20 mg by mouth. | | 0 | 04/29/20 | | | (ZOCOR) 20 mg tablet | | | | 18 | | + + + +---------+ + + | amLODIPine | | | 0 | 12/19/19 | | | (NORVASC) 5 mg | | | | 19 | 9 | | tablet | | | | | | + + + +---------+ + + | aspirin 325 mg | Take 325 mg by mouth | | 0 | | | | tablet | Daily. | | | | 9 | + + + +---------+ + + | cholecalciferol | Take 1,000 Units by | | 0 | | | | (VITAMIN D-3) 1,000 | mouth Daily. | | | | 9 | | units capsule | | | | | | + + + +---------+ + + | lisinopril | Take 40 mg by mouth | | 0 | | | | (PRINIVIL,ZESTRIL) | Daily. | | | | 9 | | 40 MG tablet | | | | | | + + + +---------+ + + documented as of this encounter [...] | | | | | | [address] [place], [place] | | | | | | [address] | | | | | | | [...] | + +--------+ + + + | MRI ABDOMEN W WO | Routin | 06/12/2019 | | Results for this | | CONTRAST | e | 9:18 AM | | procedure are in the | | | | PDT | | results section. | + +--------+ + + + documented in this encounter Results MRI Abdomen w wo Contrast (06/12/2019 9:18 AM PDT) + + | Specimen | + + | | + + + + + | Impressions | Performed At | + + + | 1. There are 2 separate Bosniak class 2 hemorrhagic cysts seen in | | | the left kidney measuring 4.2 x 4.1 cm and 1.4 cm. These show no | | | evidence of enhancement to suggest malignancy. 2. Stable 16 mm right | | | adrenal adenoma since 12/03/2015. Signed by: Mauro Christopher Edward | | | Sign Date/Time: 06/16/2019 10:09 AM | | + + + + + + | Narrative | Performed At | + + + | MR ABDOMEN WITHOUT AND WITH IV CONTRAST CLINICAL INFORMATION: Mass | | | of left kidney seen on imaging done in [facility]. patient not sure | | | what exam she had. COMPARISON: MRI LUMBAR SPINE WO CONTRAST | | | (12/03/2015); PROCEDURE: MRI of the abdomen performed in axial and | | | coronal planes with and without IV contrast, including dedicated MRCP | | | sequences. 3D was not performed on an independent workstation. | | | Contrast: Gadavist was administered intravenously. FINDINGS: MR | | | ABDOMEN Lung Bases: No significant pulmonary abnormality. No pleural | | | effusion or pneumothorax. Liver: No gallbladder or biliary | | | abnormality. No significant liver abnormality. Pancreas, Adrenal | | | glands and Spleen: The spleen and pancreas are normal. The left | | | adrenal gland is normal. The right adrenal gland demonstrates a | | | benign adenoma measuring 16 mm, image 5 series 13 which appears | | | unchanged from 12/03/2015, image 15 series 3 consistent with a benign | | | adrenal adenoma. Kidneys: The right kidney demonstrates a few tiny | | | simple cysts. The left kidney demonstrates 2 T1 hyperintense | | | hemorrhagic cysts, the largest located at the anterior margin of the | | | lower pole measuring 4.2 x 4.1 cm, image 28 series 10 which contains | | | milk of calcium or layering hemosiderin along its dependent margin, | | | see image 10 series 6 the smaller cyst in the left kidney is seen at | | | the medial margin of the lower pole measuring 1.4 cm, image 35 series | | | 10. The cysts do not show evidence of enhancement to suggest the | | | presence of malignancy. Peritoneum and Retroperitoneum: No ascites or | | | free air. No significant retroperitoneal abnormality. Vessels: No | | | significant abnormality in the aorta or its proximal branches. No | | | significant abnormality in the portal veins, mesenteric veins or | | | systemic veins. Lymph Nodes: No adenopathy. Body Wall: No bowel or | | | inflamed fat containing hernia, mass or hemorrhage. Bones: No acute | | | fracture or vertebral end plate destruction. No lytic or blastic | | | lesion. | | + + + + + | Procedure Note | + + | Jairo, Rad Conversion - 07/04/2019 9:41 AM PDT MR ABDOMEN WITHOUT AND WITH IV CONTRAST | | CLINICAL INFORMATION: | | Mass of left kidney seen on imaging done in [facility]. patient not sure | | what exam she had. | | COMPARISON: | | MRI LUMBAR SPINE WO CONTRAST (12/03/2015); | | PROCEDURE: | | MRI of the abdomen performed in axial and coronal planes with and | | without IV contrast, including dedicated MRCP sequences. | | 3D was not performed on an independent workstation. | | Contrast: Gadavist was administered intravenously. | | FINDINGS: | | MR ABDOMEN | | Lung Bases: No significant pulmonary abnormality. No pleural effusion | | or pneumothorax. | | Liver: No gallbladder or biliary abnormality. No significant liver | | abnormality. | | Pancreas, Adrenal glands and Spleen: The spleen and pancreas are | | normal. The left adrenal gland is normal. The right adrenal gland | | demonstrates a benign adenoma measuring 16 mm, image 5 series 13 which | | appears unchanged from 12/03/2015, image 15 series 3 consistent with a | | benign adrenal adenoma. | | Kidneys: The right kidney demonstrates a few tiny simple cysts. The | | left kidney demonstrates 2 T1 hyperintense hemorrhagic cysts, the | | largest located at the anterior margin of the lower pole measuring 4.2 | | x 4.1 cm, image 28 series 10 which contains milk of calcium or layering | | hemosiderin along its dependent margin, see image 10 series 6 the | | smaller cyst in the left kidney is seen at the medial margin of the | | lower pole measuring 1.4 cm, image 35 series 10. The cysts do not show | | evidence of enhancement to suggest the presence of malignancy. | | Peritoneum and Retroperitoneum: No ascites or free air. No significant | | retroperitoneal abnormality. | | Vessels: No significant abnormality in the aorta or its proximal | | branches. No significant abnormality in the portal veins, mesenteric | | veins or systemic veins. | | Lymph Nodes: No adenopathy. | | Body Wall: No bowel or inflamed fat containing hernia, mass or | | hemorrhage. | | Bones: No acute fracture or vertebral end plate destruction. No lytic | | or blastic lesion. | | IMPRESSION: | | 1. There are 2 separate Bosniak class 2 hemorrhagic cysts seen in the | | left kidney measuring 4.2 x 4.1 cm and 1.4 cm. These show no evidence | | of enhancement to suggest malignancy. | | 2. Stable 16 mm right adrenal adenoma since 12/03/2015. | | Signed by: Mauro Christopher Edward | | Sign Date/Time: 06/16/2019 10:09 AM | + + documented in this encounter Visit Diagnoses + + | Diagnosis | + + | Mass of left kidney Unspecified disorder of kidney and ureter | + + documented in this encounter"
--- OUTSIDE RECORDS SUMMARY | ~2019-10-04 | XMS | Encounter Summary ---
Demographics + + + | Address | [address] | | | [place] [address] | + + + | Home Phone | | + + + | Preferred Language | Unknown | + + + | Marital Status | | + + + | Voodoo Affiliation | Unknown | + + + | Race | Unknown | + + + | Ethnic Group | Unknown | + + + Author + + + | Author | [facility] | | | and [place] | + + + | Organization | [facility] | | | and [place] | + + + | Address | Unknown | + + + | Phone | Unavailable | + + + Support + + + + + | Name | Relationship | Address | Phone | + + + + + | Last Kishorcarlos | ECON | [address] | | | | | [place] | | | | | [address] | | + + + + + Care Team Providers + +------+ + | Care Editor House Organ Name | Role | Phone | + +------+ + | Marilee Whaley | PCP | | | PA | | | + +------+ + Reason for Visit + + + | Reason | Comments | + + + | Device Check | Routine | | (In-office) | | + + + Encounter Details +--------+ + + + + | Date | Type | Department | Care Team | Description | +--------+ + + + + | 09/09/ | Procedure | [facility] | | Pacemaker (Primary | | 2019 | visit | [facility] [place] | | Dx) | | | | [address] | | | | | | [place], [place] | | | | | | [address] | | | | | | [phone] | | | +--------+ + + + [...] 2020 | Visit | | [address] [facility] | | | | | | [address] [place] | | | | | | [address] | | | | | | | [...] | + +--------+ + + + | DEVICE INTERROGATION | Routin | 09/09/2019 | Pacemaker | Results for this | | | e | 3:15 PM | | procedure are in the | | | | PST | | results section. | + +--------+ + + + documented in this encounter Results Device Interrogation (09/09/2019 3:15 PM PST) + + + | Narrative | Performed At | + + + | Dru Ceja, | [facility] | | Technologist 09/09/2019 4:14 PMPrior to beginning diagnostic | | | procedure, Dr. Beltran was identified as provider on the floor/provider | | | of record. Device interrogation done by Valerie Escalera Any events or | | | changes listed in office note. See device data attached to scheduled | | | encounter for additional details. eligibility services representative: Dru Vasquez | | | | | |See device data attached to scheduled encounter for additional | | |details. | | | | | |eligibility services representative: Dru Vasquez | | | | | + + + + +---------+ + + | Performing | Address | City/State/Zipcode | Phone Number | | Organization | | | | + +---------+ + + | [facility] | | | | + +---------+ + + documented in this encounter Visit Diagnoses + + | Diagnosis | + + | Pacemaker - Primary Cardiac pacemaker in situ | + + documented in this encounter"
--- OUTSIDE RECORDS SUMMARY | ~2019-10-04 | XMS | Encounter Summary ---
Demographics + + + | Address | [address] | | | [place] [address] | + + + | Home Phone | | + + + | Preferred Language | Unknown | + + + | Marital Status | | + + + | Taoist Affiliation | Unknown | + + + | Race | Unknown | + + + | Ethnic Group | Unknown | + + + Author + + + | Author | [facility] | | | and [place] | + + + | Organization | [facility] | | | and [place] | + + + | Address | Unknown | + + + | Phone | Unavailable | + + + Support + + + + + | Name | Relationship | Address | Phone | + + + + + | Last Kishorcarlos | ECON | [address] | | | | | [place] | | | | | [address] | | + + + + + Care Team Providers + +------+ + | Care Director Of Scout Work Name | Role | Phone | + +------+ + | Marilee Whaley | PCP | | | PA | | | + +------+ + Encounter Details +--------+ + + + + | Date | Type | Department | Care Team | Description | +--------+ + + + + | 09/15/ | Orders Only | [facility] | Conversion | | | 2016 | | [facility] [place] | Transaction, | | | | | [address] | Provider Unknown | | | | | [address] [place], [place] | [phone] | | | | | [address] | | | | | | [phone] | | | +--------+ + + + [...] 2019 | Visit | | [address] [facility] | | | | | | [address] [place] | | | | | | [address] | | | | | | | [...] + + | URINALYSIS, | Routin | 09/15/2016 | | Results for this | | MICROSCOPIC ONLY | e | 12:00 AM | | procedure are in the | | | | PST | | results section. | + +--------+ + + + | MICROALBUMIN, URINE, | Routin | 09/15/2016 | | Results for this | | 24HR | e | 12:00 AM | | procedure are in the | | | | PST | | results section. | + +--------+ + + + | CULTURE, URINE | Routin | 09/15/2016 | | Results for this | | | e | 12:00 AM | | procedure are in the | | | | PST | | results section. | + +--------+ + + + documented in this encounter Results Microalbumin, Urine, 24Hr (09/15/2016 12:00 AM PST) + +-------+ + + + | Component | Value | Ref Range | Performed | Pathologist | | | | | At | Signature | + +-------+ + + + | Microalbumi | 23.7 | 0 - 30 mg/24 | EXTERNAL | | | n, Urine | | hrs | LAB | | | 24hr | | | | | + +-------+ + + + + + | Specimen | + + | Urine specimen | | (specimen) | + + + +---------+ + + | Performing | Address | City/State/Zipcode | Phone Number | | Organization | | | | + +---------+ + + | EXTERNAL LAB | | | | + +---------+ + + Culture, Urine (09/15/2016 12:00 AM PST) + + | Specimen | + + | Urine specimen | | (specimen) | + + + + + | Narrative | Performed At | + + + | Specimen Description Urine CULTURE | EXTERNAL LAB | | No Growth at 18-24 hrs. REPORT | | | STATUS Final | | + + + + +---------+ + + | Performing | Address | City/State/Zipcode | Phone Number | | Organization | | | | + +---------+ + + | EXTERNAL LAB | | | | + +---------+ + + Urinalysis, Microscopic Only (09/15/2016 12:00 AM PST) + + + + + + [...] + + + + | Specific | 1.011 | 1.005 - 1.030 | EXTERNAL | | | [place] | | | LAB | | + [...]
--- OUTSIDE RECORDS SUMMARY | ~2019-10-04 | XMS | Encounter Summary ---
Demographics + + + | Address | [address] | | | [place] [address] | + + + | Home Phone | | + + + | Preferred Language | Unknown | + + + | Marital Status | | + + + | Samaritan Affiliation | Unknown | + + + | Race | Unknown | + + + | Ethnic Group | Unknown | + + + Author + + + | Author | [facility] | | | and [place] | + + + | Organization | [facility] | | | and [place] | + + + | Address | Unknown | + + + | Phone | Unavailable | + + + Support + + + + + | Name | Relationship | Address | Phone | + + + + + | Last Garner | ECON | [address] | | | | | [place] | | | | | [address] | | + + + + + Care Team Providers + +------+ + | Care Canal Structure Operator Name | Role | Phone | + +------+ + | Marilee Whaley | PCP | | | PA | | | + +------+ + Encounter Details +--------+ + + + + | Date | Type | Department | Care Team | Description | +--------+ + + + + | 07/23/ | Orders Only | [facility] | PawanRod dai, | | | 2017 | | NEPHROLOGY [place] | SUPERVISOR TAPING [address] | | | | | [address] | [address] | | | | | [address] [facility] [place] | [place] | | | | | [address] | [address] | | | | | [phone] | [phone] | | | | | | | [...] 2019 | Visit | | [address] [facility] | | | | | | [address] [facility] | | | | | | [address] | | | | | | | [...] | EXTERNAL LAB: [facility]EVIN | Routin | 07/23/2017 | | Results for this | | | e | 12:55 PM | | procedure are in the | | | | PDT | | results section. | + +--------+ + + + | URINALYSIS, REFLEX | Routin | 07/23/2017 | | Results for this | | MICROSCOPIC AND/OR | e | 12:55 PM | | procedure are in the | | CULTURE | | PDT | | results section. | + +--------+ + + + | PROTEIN/CREATININE | Routin | 07/23/2017 | | Results for this | | RATIO, URINE | e | 12:55 PM | | procedure are in the | | | | PDT | | results section. | + +--------+ + + + | URIC ACID | Routin | 07/23/2017 | | Results for this | | | e | 12:55 PM | | procedure are in the | | | | PDT | | results section. | + +--------+ + + + | PARATHYROID HORMONE, | Routin | 07/23/2017 | | Results for this | | INTACT | e | 12:55 PM | | procedure are in the | | | | PDT | | results section. | + +--------+ + + + | MAGNESIUM | Routin | 07/23/2017 | | Results for this | | | e | 12:55 PM | | procedure are in the | | | | PDT | | results section. | + +--------+ + + + | FERRITIN | Routin | 07/23/2017 | | Results for this | | | e | 12:55 PM | | procedure are in the | | | | PDT | | results section. | + +--------+ + + + | RENAL FUNCTION PANEL | Routin | 07/23/2017 | | Results for this | | | e | 12:55 PM | | procedure are in the | | | | PDT | | results section. | + +--------+ + + + documented in this encounter Results Urinalysis, Reflex Microscopic and/or Culture (07/23/2017 12:55 PM PDT) + + + + + [...] + +---------+ + + Protein/Creatinine Ratio, Urine (07/23/2017 12:55 PM PDT) + + + + + + | Component | Value | Ref Range | Performed | Pathologist | | | | | At | Signature | + + + + + + | Protein/Cre | 173.9 (A) | 0 - 150 | EXTERNAL [...] + +---------+ + + External Lab: CBC (07/23/2017 12:55 PM PDT) + + + + + + | Component | Value | Ref Range | Performed | Pathologist | | | | | At | Signature | + + + + + + | WBC | 4.8 | 4.5 - 11.0 10 | EXTERNAL | | | | | | LAB | | + + + + + + | RED CELL | 4.07 | 3.8 - 5.1 10 | EXTERNAL | | | COUNT | | | LAB | | + + + + + + | Hgb | 11.8 (A) | 12.0 - 16.0 | EXTERNAL | | | | | g/dL | LAB | | + + + + + + | Hematocrit, | 36.3 | 35 - 45 % | EXTERNAL | | | POC | | | LAB | | + + + + + + | MCV | 89.2 | 81 - 99 fL | EXTERNAL | | | | | | LAB | | + + + + + + | MCH | 29 | 27 - 33 pg | EXTERNAL | | | | | | LAB | | + + + + + + | MCHC | 33 | 30 - 36 g/dL | EXTERNAL | | | | | | LAB | | + + + + + + | Platelet | 225 | 140 - 440 K/ L | EXTERNAL | | | Count | | | LAB | | | Plasma | | | | | + + + + + + | RDW-CV | 15.2 (A) | 10.5 - 15.0 % | [...] | + +---------+ + + Uric Acid (07/23/2017 12:55 PM PDT) + +---------+ + + + | Component | Value | Ref Range | Performed | Pathologist | | | | | At | Signature | + +---------+ + + + | Uric Acid | 6.7 (A) | 2.3 - 6.6 | EXTERNAL [...] + +---------+ + + Parathyroid Hormone, Intact (07/23/2017 12:55 PM PDT) + + + + + + | Component | Value | Ref Range | Performed | Pathologist | | | | | At | Signature | + + + + + + | PTH INTACT | 65.36 (A) | 15 - 65 pg/mL | [...] | | + +---------+ + + Magnesium (07/23/2017 12:55 PM PDT) + +---------+ + + + | Component | Value | Ref Range | Performed | Pathologist | | | | | At | Signature | + +---------+ + + + | Magnesium | 1.4 (A) | 1.7 - 2.5 mg/dL | [...] | | + +---------+ + + Ferritin (07/23/2017 12:55 PM PDT) + +-------+ + + + | Component | Value | Ref Range | Performed | Pathologist | | | | | At | Signature | + +-------+ + + + | Ferritin, | 30.64 | 13 - 150 ng/mL | EXTERNAL [...] + +---------+ + + Renal Function Panel (07/23/2017 12:55 PM PDT) + +---------+ + + + | Component | Value | Ref Range | Performed | Pathologist | | | | | At | Signature | + +---------+ + + + | Glucose, | 99 | 70 - 100 mg/dL | EXTERNAL | | | Fasting | | | LAB | | + +---------+ + + + | BUN | 24 (A) | 6 - 23 mg/dL | EXTERNAL | | | | | | LAB | | + +---------+ + + + | Creatinine | 0.86 | 0.70 - 1.18 | EXTERNAL | [...] +---------+ + + + | Na | 143 | 132 - 143 | EXTERNAL | | | | | mmol/L | LAB | | + +---------+ + + + | K | 4.5 | 3.6 - 5.1 | EXTERNAL | | | | | mmol/L | LAB | | + +---------+ + + + | Cl | 107 | 95 - 112 mmol/L | EXTERNAL | | | | | | LAB | | + +---------+ + + + | CO2 | 23 | 19 - 31 mmol/L | EXTERNAL | | | | | | LAB | | + +---------+ + + + | Anion Gap | 17.5 | 7 - 21 mmol/L | EXTERNAL | | | | | | LAB | | + +---------+ + + + | eGFR if not | | | EXTERNAL | | | | | | LAB | | | [place] | | | | | + +---------+ + + + | Phosphorus, | 2.2 (A) | 2.5 - 5.0 | EXTERNAL | | | Inorganic | | | LAB | | + +---------+ + + + | BUN/Creatin | 27.9 | 6.0 - 28.6 | EXTERNAL | | | ine Ratio | | | LAB | | + +---------+ + + + | Calcium | 9.3 | 8.4 - 10.2 | EXTERNAL | | | | | mg/dL | LAB | | + +---------+ + + + | Estimated | 65 | mg/dL | EXTERNAL | | | [...]
--- OUTSIDE RECORDS SUMMARY | ~2019-10-04 | XMS | Encounter Summary ---
Demographics + + + | Address | [address] | | | [place] [address] | + + + | Home Phone | | + + + | Preferred Language | Unknown | + + + | Marital Status | | + + + | Episcopal Affiliation | Unknown | + + + | Race | Unknown | + + + | Ethnic Group | Unknown | + + + Author + + + | Author | [facility] | | | and [place] | + + + | Organization | [facility] | | | and [place] | + + + | Address | Unknown | + + + | Phone | Unavailable | + + + Support + + + + + | Name | Relationship | Address | Phone | + + + + + | Last Kishorcarlos | ECON | [address] | | | | | [place] | | | | | [address] | | + + + + + Care Team Providers + +------+ + | Care Auto Top Mechanic Name | Role | Phone | + +------+ + | Marilee Whaley | PCP | | | PA | | | + +------+ + Encounter Details +--------+ + + + + | Date | Type | Department | Care Team | Description | +--------+ + + + + | 09/14/ | Orders Only | [facility] | Conversion | | | 2016 | | [facility] [place] | Transaction, | | | | | [address] | Provider Unknown | | | | | [address] [place], [place] | [phone] | | | | | [address] | | | | | | [phone] | | | +--------+ + + + [...] 2019 | Visit | | [address] [facility] | | | | | | [address] [place] | | | | | | [address] | | | | | | | [...] | EXTERNAL LAB: CBC | Routin | 09/14/2016 | | Results for this | | | e | 8:03 AM | | procedure are in the | | | | PST | | results section. | + +--------+ + + + | LIPID PANEL | Routin | 09/14/2016 | | Results for this | | | e | 8:03 AM | | procedure are in the | | | | PST | | results section. | + +--------+ + + + | TSH | Routin | 09/14/2016 | | Results for this | | | e | 8:03 AM | | procedure are in the | | | | PST | | results section. | + +--------+ + + + | HEMOGLOBIN A1C | Routin | 09/14/2016 | | Results for this | | | e | 8:03 AM | | procedure are in the | | | | PST | | results section. | + +--------+ + + + | COMPREHENSIVE | Routin | 09/14/2016 | | Results for this | | METABOLIC PANEL | e | 8:03 AM | | procedure are in the | | | | PST | | results section. | + +--------+ + + + documented in this encounter Results External Lab: CBC (09/14/2016 8:03 AM PST) + +-------+ + + + | Component | Value | Ref Range | Performed | Pathologist | | | | | At | Signature | + +-------+ + + + | WBC | 6.5 | 4.5 - 11.0 10 | EXTERNAL | | | | | | LAB | | + +-------+ + + + | RED CELL | 4.24 | 3.8 - 5.1 10 | EXTERNAL | | | COUNT | | | LAB | | + +-------+ + + + | Hgb | 12.3 | 12.0 - 16.0 | EXTERNAL | | | | | g/dL | LAB | | + +-------+ + + + | Hematocrit, | 37.1 | 35 - 45 % | EXTERNAL | | | POC | | | LAB | | + +-------+ + + + | MCV | 87.4 | 81 - 99 fL | EXTERNAL [...] +-------+ + + + | Platelet | 240 | 140 - 440 K/ L | [...] | | | + +---------+ + + TSH (09/14/2016 8:03 AM PST) + +-------+ + + + | Component | Value | Ref Range | Performed | Pathologist | | | | | At | Signature | + +-------+ + + + | TSH | 3.89 | 0.270 - 4.20 | EXTERNAL | | | | | uIU/mL | LAB | | + +-------+ + + + + + | Specimen | + + | Blood specimen | | (specimen) | + + + +---------+ + + | Performing | Address | City/State/Zipcode | Phone Number | | Organization | | | | + +---------+ + + | EXTERNAL LAB | | | | + +---------+ + + Hemoglobin A1C (09/14/2016 8:03 AM PST) + +-------+ + + + | Component | Value | Ref Range | Performed | Pathologist | | | | | At | Signature | + +-------+ + + + | Hemoglobin | 5.9 | % | EXTERNAL | | | A1c | | | LAB | | + +-------+ + + + + + | Specimen | + + | Blood specimen | | (specimen) | + + + +---------+ + + | Performing | Address | City/State/Zipcode | Phone Number | | Organization | | | | + +---------+ + + | EXTERNAL LAB | | | | + +---------+ + + Lipid Panel (09/14/2016 8:03 AM PST) + +---------+ + + + | Component | Value | Ref Range | Performed | Pathologist | | | | | At | Signature | + +---------+ + + + | Cholesterol | 220 | mg/dL | EXTERNAL | | | | | | LAB | | + +---------+ + + + | Triglycerid | 259 (A) | 30 - 150 mg/dL | EXTERNAL | | | es | | | LAB | | + +---------+ + + + | HDL | 47.6 | mg/dl | EXTERNAL | | | | | | LAB | | + +---------+ + + + | LDL | 121 | mg/dL | EXTERNAL | | | Cholesterol | | | LAB | | | , | | | | | | Calculated, | | | | | | External | | | | | + +---------+ + + + | LDl/HDL | | | EXTERNAL | | | Ratio | | | LAB | | + +---------+ + + + | Chol/HDL | 4.6 | | EXTERNAL | | | Ratio | | | LAB | | + +---------+ + + + | VLDL | 52 (A) | 4 - 40 mg/dL | EXTERNAL | | | | | | LAB | | + +---------+ + + + | Non HDL | 172 | | EXTERNAL | | | Chol. | | | LAB | | | (LDL+VLDL) | | | | | + +---------+ [...] + +---------+ + + Comprehensive Metabolic Panel (09/14/2016 8:03 AM PST) + +---------+ + + + | Component | Value | Ref Range | Performed | Pathologist | | | | | At | Signature | + +---------+ + + + | Glucose, | 112 (A) | 70 - 100 mg/dL | EXTERNAL | | | Fasting | | | LAB | | + +---------+ + + + | BUN | 33 (A) | 6 - 23 mg/dL | EXTERNAL | | | | | | LAB | | + +---------+ + + + | Creatinine | 1.18 | 0.70 - 1.18 | EXTERNAL | | | | | mg/dL | LAB | | + +---------+ + + + | BUN/Creatin | 28.0 | 6.0 - 28.6 | EXTERNAL | | | ine Ratio | | | LAB | | + +---------+ + + + | Calcium | 9.8 | 8.4 - 10.2 | EXTERNAL | | | | | mg/dL | LAB | | + +---------+ + + + | Protein, | 6.4 | 6.0 - 8.0 g/dL | EXTERNAL | | | Total | | | LAB | | + +---------+ + + + | Albumin | 4.1 | 3.5 - 5.0 | EXTERNAL | | | | | | LAB | | + +---------+ + + + | Globulin | 2.3 | 1.8 - 3.5 | EXTERNAL | | | | | | LAB | | + +---------+ + + + | A/G Ratio | 1.8 | 1.1 - 2.4 | EXTERNAL | | | | | | LAB | | + +---------+ + + + | Bilirubin | 0.6 | 0.0 - 1.2 mg/dL | EXTERNAL | | | Total | | | LAB | | + +---------+ + + + | ALP, | 106 | 30 - 128 | EXTERNAL | | | External | | | LAB | | + +---------+ + + + | ALT | 23 | 7 - 52 U/L | EXTERNAL | | | | | | LAB | | + +---------+ + + + | AST | 1 (A) | 13 - 39 U/L | EXTERNAL | | | | | | LAB | | + +---------+ + + + | Na | 139 [...] +---------+ + + + | CO2 | 21 | 19 - 31 mmol/L | EXTERNAL | | | | | | LAB | | + +---------+ + + + | Anion Gap | 18.4 | 7 - 21 mmol/L | EXTERNAL | | | | | | LAB | | + +---------+ + + + | Estimated | 45 | mg/dL | EXTERNAL | | | [...]
--- OUTSIDE RECORDS SUMMARY | ~2019-10-04 | XMS | Clinical Summary ---
Demographics + + + | Address | [address] | | | [place] [address] | + + + | Home Phone | | + + + | Preferred Language | Unknown | + + + | Marital Status | | + + + | Adventism Affiliation | Unknown | + + + | Race | Unknown | + + + | Ethnic Group | Unknown | + + + Author + + + | Author | [facility] (Historical as of | | | 06-14-19) | + + + | Organization | [facility] (Historical as of | | | 06-14-19) | + + + | Address | Unknown | + + + | Phone | Unavailable | + + + Support + + + + + | Name | Relationship | Address | Phone | + + + + + | Last Ayala | ECON | [address] | | | | | [place] | | | | | [address] | | + + + + + Care Team Providers + +------+ + | Care Senior Net Developer Architect Name | Role | Phone | + +------+ + | Marilee Whaley | PP | Unavailable | + +------+ + Allergies No Known Allergies Current Medications + + +--------+---------+------+------+-------+ | Prescription | Sig. | Disp. | Refills | Star | End | Statu | | | | | | t | Date | s | | | | | | Date | | | + + +--------+---------+------+------+-------+ | cholecalciferol | Take 1,000 Units by | | | | | Activ | | (VITAMIN D-3) 1000 | mouth daily. | | | | | e | | UNITS | | | | | | | | tabletIndications: | | | | | | | | Chronic kidney | | | | | | | | disease, stage III | | | | | | | | (moderate) (HCC), | | | | | | | | Essential | | | | | | | | hypertension, | | | | | | | | benign, Type 2 | | | | | | | | diabetes mellitus | | | | | | | | with diabetic | | | | | | | | chronic kidney | | | | | | | | disease (HCC), | | | | | | | | Adenoma of right | | | | | | | | adrenal gland, Renal | | | | | | | | mass, left | | | | | | | + + +--------+---------+------+------+-------+ | diphenhydrAMINE | Take 25 mg by mouth | | | | | Activ | | (BENADRYL) 25 mg | nightly as needed | | | | | e | | capsule | for Itching. | | | | | | + + +--------+---------+------+------+-------+ | traMADol (ULTRAM) | Take 50 mg by mouth | | | | | Activ | | 50 MG tablet | every 6 (six) hours | | | | | e | | | as needed for Pain. | | | | | | + + +--------+---------+------+------+-------+ | ascorbic acid | Take 3,000 mg by | | | | | Activ | | (VITAMIN C) 1000 MG | mouth daily. | | | | | e | | tabletIndications: | | | | | | | | Chronic kidney | | | | | | | | disease, stage III | | | | | | | | (moderate) (HCC), | | | | | | | | Essential | | | | | | | | hypertension, | | | | | | | | benign, Adenoma of | | | | | | | | right adrenal gland | | | | | | | + + +--------+---------+------+------+-------+ | fish oil omega-3 | Take 1 g by mouth | | | | | Activ | | fatty acids 1000 MG | daily. | | | | | e | | capsule | | | | | | | + + +--------+---------+------+------+-------+ | simvastatin | Take 20 mg by mouth | | | 07/0 | | Activ | | (ZOCOR) 20 MG | daily. | | | 2/20 | | e | | tabletIndications: | | | | 18 | | | | Stage 3 chronic | | | | | | | | kidney disease | | | | | | | | (HCC), Benign | | | | | | | | essential | | | | | | | | hypertension, | | | | | | | | Hypomagnesemia, | | | | | | | | Adenoma of right | | | | | | | | adrenal gland | | | | | | | + + +--------+---------+------+------+-------+ | magnesium chloride | Take 2 tablets by | 180 | 3 | 06/30 | | Activ | | (MAG64) 64 mg EC | mouth daily. | tablet | | 03/17 | | e | | tabletIndications: | | | | 18 | | | | Chronic kidney | | | | | | | | disease, stage III | | | | | | | | (moderate) (HCC), | | | | | | | | Hypomagnesemia | | | | | | | + + +--------+---------+------+------+-------+ | aspirin 81 MG EC | Take 1 tablet by | 30 | 0 | 10/30 | 10/30 | Activ | | tablet | mouth daily with | tablet | | / | 03/17 | e | | | breakfast. | | | 19 | 20 | | + + +--------+---------+------+------+-------+ | nitroGLYCERIN | Place 1 tablet under | 90 | 0 | 01/2 | 01/2 | Activ | | (NITROSTAT) 0.4 MG | the tongue every 5 | tablet | | 02/15 | 02/15 | e | | SL | (five) minutes as | | | 19 | 20 | | | tabletIndications: | needed for Chest | | | | | | | Third degree AV | pain. | | | | | | | block (HCC) | | | | | | | + + +--------+---------+------+------+-------+ | allopurinol | TAKE TWO TABLETS BY | 180 | 3 | 01/2 | | Activ | | (ZYLOPRIM) 100 MG | MOUTH ONCE DAILY | tablet | | 05/17 | | e | | tabletIndications: | | | | 19 | | | | Chronic kidney | | | | | | | | disease, stage III | | | | | | | | (moderate) (HCC), | | | | | | | | Essential | | | | | | | | hypertension, | | | | | | | | benign, Adenoma of | | | | | | | | right adrenal gland, | | | | | | | | Renal mass, left | | | | | | | + + +--------+---------+------+------+-------+ | metoprolol | Take 1 tablet by | 180 | 3 | 03/0 | 03/0 | Activ | | (LOPRESSOR) 50 MG | mouth 2 (two) times | tablet | | 05/17 | 04/17 | e | | tabletIndications: | daily. | | | 19 | 20 | | | Benign essential | | | | | | | | hypertension | | | | | | | + + +--------+---------+------+------+-------+ | losartan (COZAAR) | Take 1 tablet by | 90 | 3 | 03/0 | 03/0 | Activ | | 50 MG | mouth every evening. | tablet | | 05/17 | 04/17 | e | | tabletIndications: | | | | 19 | 20 | | | Benign essential | | | | | | | | hypertension | | | | | | | + + +--------+---------+------+------+-------+ | metFORMIN | Take 1,000 mg by | | | | | Activ | | (GLUCOPHAGE) 1000 MG | mouth. | | | | | e | | tablet | | | | | | | + + +--------+---------+------+------+-------+ Active Problems + + + | Problem | Noted Date | + + + | Pacemaker | 11/21/2018 | + + + + + | Overview: 11/21/2018DDD SHAMAR PPM implanted for symptomatic CHB | | 11/20/18 01/02/19: She feels much better with the pacemaker. | | Appropriate device function. There were no arrhythmias. The | | pacing threshold was 0.75 V at 0.5 ms in the atrium and 0.375 V | | at 0.6 ms in the RV. R waves were 10.5 mV and P waves were 4 mV. | | The underlying rhythm was complete heart block. Ventricular | | pacing has occurred greater than 99% of time. | + + + + + | Bradycardia | 11/20/2018 | + + + | Drug toxicity | 11/20/2018 | + + + | Third degree AV block (HCC) | 11/19/2018 | + + + + + | Overview: Complete heart block noted, HR 30s-40s, highly | | symptomatic with associated shortness of breath. No reversible | | cause noted. The patient required urgent pacemaker implantation | | 11/20/18. LVEF 70%, no significant valvular abnormality. | + + + + + | Anemia | 11/19/2018 | + + + | BMI 45.0-49.9, adult ([facility]) | 11/19/2018 | + + + + + | Overview: Weight loss was recommended. | + + + + + | Hypomagnesemia | 07/27/2017 | + + + | Normocytic anemia | 05/04/2017 | + + + | Chronic idiopathic gout of multiple sites | 01/10/2016 | + + + | Chronic kidney disease, stage III (moderate) | 11/16/2015 | + + + | Essential hypertension, benign | 11/16/2015 | + + + + + | Overview: Recommend increasing metoprolol 50 mg twice a day. | | Stop Lasix, potassium, and amlodipine. Increase losartan to 50 | | mg daily at bedtime. She looks dry. | + + + + + | Type 2 diabetes mellitus with diabetic nephropathy (HCC) | 11/16/2015 | + + + | Adenoma of right adrenal gland | 11/16/2015 | + + + | Renal mass, left | 11/16/2015 | + + + Resolved Problems + + + + | Problem | Noted | Resolved | | | Date | Date | + + + + | Acute kidney injury superimposed on chronic kidney disease (HCC) | 11/20/19 | | | | 19 | 9 | + + + + + + | Overview: CKD 3. Cr. 1.6 | + + + + + + | Fluid overload | 11/20/19 | | | | 19 | 9 | + + + + + + | Overview: Due to HEIKE 11/20/2018Likely secondary to low cardiac | | output state due to bradycardia. IV furosemide ordered. SL Nitro | | and IV Morphine given. BiPAP ordered to reduce work of | | breathing. 11/21/2018Volume status and shortness of breath | | improved s/p PPM and IV furosemide | + + + + + + | Acute kidney injury (HCC) | 11/19/19 | | | | 19 | 9 | + + + + | HEIKE (acute kidney injury) | 05/04/20 | | | | 17 | 8 | + + + + | Hyperkalemia | 07/12/20 | | | | 16 | 8 | + + + + Immunizations + + + + | Name | Dates Previously Given | Next Due | + + + + | INFLUENZA PF, | 11/20/2018 | | | QUADRIVALENT | | | | (PED/ADOL/ADULT) | | | + + + + | Pneumococcal | 11/20/2018 | | | Polysaccharide | | | | 23-valent | | | + + + + Family History + + +------+ + | Medical History | Relation | Name | Comments | + + +------+ + | Hypothyroidism | Daughter | | | + + +------+ + | Diabetes type II | Father | | | + + +------+ + | Cancer | Mother | | Skin-Malignant Tumor | + + +------+ + + +------+--------+ + | Relation | Name | Status | Comments | + +------+--------+ + | Daughter | | | | + +------+--------+ + | Father | | | | + +------+--------+ + | Mother | | | | + +------+--------+ + Social History + +-------+ +--------+------+ | Tobacco Use | Types | Packs/Day | Years | Date | | | | | Used | | + +-------+ +--------+------+ | Former Smoker | | 1.5 | 40 | | + +-------+ +--------+------+ + +---+---+---+ | Smokeless Tobacco: | | | | | Never Used | | | | + +---+---+---+ + + +---------+ + | Alcohol Use | Drinks/We | oz/Week | Comments | | | ek | | | + + +---------+ + | No | | | | + + +---------+ + + + + | Sex Assigned at | Date Recorded | | | | + + + | Not on file | | + + + Last Filed Vital Signs + + + + | Vital Sign | Reading | Time Taken | + + + + | Blood Pressure | 160/80 | 05/28/2019 2:35 PM PDT | + + + + | Pulse | 104 | 05/28/2019 2:35 PM PDT | + + + + | Temperature | 36.8 C (98.2 F) | 11/21/2018 11:45 AM PST | + + + + | Respiratory Rate | 16 | 01/02/2019 1:55 PM PST | + + + + | Oxygen Saturation | 95% | 01/02/2019 1:55 PM PST | + + + + | Inhaled Oxygen | - | - | | Concentration | | | + + + + | Weight | 113.4 kg (250 lb) | 06/12/2019 9:17 AM PDT | + + + + | Height | 157.5 cm (5' 2") | 05/28/2019 2:35 PM PDT | + + + + | Body Mass Index | 45.73 | 06/12/2019 9:17 AM PDT | + + + + Plan of Treatment +--------+ + + + + | Date | Type | Specialty | Care Team | Description | +--------+ + + + + | 10/07/ | Documentati | | | | | 2018 | on Only | | | | +--------+ + + + + + + + + + | Health Maintenance | Due Date | Last Done | Comments | + + + + + | Diabetic Eye Exam | | | | | | 5 | | | + + + + + | Diabetic Foot Exam | | | | | | 5 | | | + + + + + | Vaccine: | | | | | Dtap/Tdap/Td (1 - | 4 | | | | Tdap) | | | | + + + + + | Breast Cancer | | | | | Screening | 5 | | | | (Mammogram) | | | | + + + + + | Colon Cancer | | | | | Screening | 5 | | | | (Colonoscopy) | | | | + + + + + | Vaccine: Zoster (1 | | | | | of 2) | 5 | | | + + + + + | DEXA SCAN SCREENING | | | | | | 0 | | | + + + + + | Hemoglobin A1c | | 09/14/2016 | | | | 7 | | | + + + + + | Vaccine: Influenza | | 11/20/2018 | | | (#1) | 9 | | | + + + + + | Vaccine: | | 11/20/2018 | | | Pneumococcal 65+ | 0 | | | | Low/Medium Risk (2 | | | | | of 2 - PCV13) | | | | + + + + + Implants + +--------+--------+ +--------+--------+--------+ | Implanted | Type | Area | Manufacture | Device | Expira | Model | | | | | r | | tion | / | | | | | | Identi | Date | Serial | | | | | | fier | | / Lot | + +--------+--------+ +--------+--------+--------+ | Rv Lead-11/20/2018Implanted: | Cardia | Heart | [facility] | | | [id number] | | Qty: 1 on 11/20/2018 by | c | | MEDICAL SC, | | | -58 | | Tejas Beltran MD | [employer] | | [employer] | | | /[id number] | | | | | | | | [id number] / | | | Manage | | | | | | | | ment | | | | | | + +--------+--------+ +--------+--------+--------+ | Ra Lead-11/20/2018Implanted: | Cardia | Heart | [facility] | | | [id number] | | Qty: 1 on 11/20/2018 by | c | | MEDICAL SC, | | | -52 | | Tejas Beltran MD | [employer] | | [employer] | | | /[id number] | | | | | | | | [id number] / | | | Manage | | | | | | | | ment | | | | | | + +--------+--------+ +--------+--------+--------+ | Generator-11/20/2018Implanted: | Cardia | Left: | [facility] | | | [id number] | | Qty: 1 on 11/20/2018 by | c | Chest | [employer], | | | | | Tejas Beltran MD | [employer] | | [employer] | | | /[id number] | | | | | | | | 60 / | | | Manage | | | | | | | | ment | | | | | | + +--------+--------+ +--------+--------+--------+ Results Not on filefrom Last 3 Months Insurance + +--------+ +--------+-------+ + | Payer | Benefi | Subscriber | Type | Phone | Address | | | t Plan | ID | | | | | | / | | | | | | | Group | | | | | + +--------+ +--------+-------+ + | MEDICARE | MEDICA | [id number] | | | [address] | | | RE | | | | [place] [phone] | | | IP-OP | | | | | + +--------+ +--------+-------+ + | CIG[employer] | LOYAL | [id number] | Indemn | | | | | AMERIC | | ity | | | | | AN | | | | | + +--------+ +--------+-------+ + + +--------+ +--------+ + + | Guarantor Name | Accoun | Relation to | Date | Phone | Billing Address | | | t Type | Patient | of | | | | | | | | | | + +--------+ +--------+ + + | FELICITAS AYALA | Person | Self [birth year] Home: | [address] | | | al/[place] | | 1946 | [phone] [place], [place] | | | rory | | | [phone] | [phone] | + +--------+ +--------+ + +
--- OUTSIDE RECORDS SUMMARY | ~2019-10-04 | XMS | Encounter Summary ---
Demographics + + + | Address | [address] | | | [place] [address] | + + + | Home Phone | | + + + | Preferred Language | Unknown | + + + | Marital Status | | + + + | Pentecostal Affiliation | Unknown | + + + | Race | Unknown | + + + | Ethnic Group | Unknown | + + + Author + + + | Author | [facility] | | | and [place] | + + + | Organization | [facility] | | | and [place] | + + + | Address | Unknown | + + + | Phone | Unavailable | + + + Support + + + + + | Name | Relationship | Address | Phone | + + + + + | Last [facility] | ECON | [address] | | | | | [place] | | | | | [phone] | | + + + + + Care Team Providers + +------+ + | Care Aquatics Manager Name | Role | Phone | + +------+ + | Marilee Whaley | PCP | | | PA | | | + +------+ + Encounter Details +--------+ + + + + | Date | Type | Department | Care Team | Description | +--------+ + + + + | 01/02/ | Orders Only | [facility] | Jonathan Acosta MD | | | 2015 | | NEPHROLOGY [place] | [address] [place] | | | | | [address] [place] | [address] [place], [place] | | | | | [address] [place], [place] | [address] | | | | | [address] | | | | | | [phone] | | | +--------+ + + + + Social History + +-------+ +--------+------+ | Tobacco Use | Types | Packs/Day | Years | Date | | | | | Used | | + +-------+ +--------+------+ | Never Assessed | | | | | + +-------+ +--------+------+ + + + | Sex Assigned at [...] 2019 | Visit | | [address] [facility] | | | | | | [address] [place] | | | | | | [id number] | | | | | | | [...] | EXTERNAL LAB: CBC | Routin | 01/03/2016 | | Results for this | | | e | 12:00 AM | | procedure are in the | | | | PST | | results section. | + +--------+ + + + | URINALYSIS WITH | Routin | 01/03/2016 | | Results for this | | MICROSCOPIC IF | e | 12:00 AM | | procedure are in the | | INDICATED | | PST | | results section. | + +--------+ + + + | PROTEIN/CREATININE | Routin | 01/03/2016 | | Results for this | | RATIO, URINE | e | 12:00 AM | | procedure are in the | | | | PST | | results section. | + +--------+ + + + | URIC ACID | Routin | 01/03/2016 | | Results for this | | | e | 12:00 AM | | procedure are in the | | | | PST | | results section. | + +--------+ + + + | MAGNESIUM | Routin | 01/03/2016 | | Results for this | | | e | 12:00 AM | | procedure are in the | | | | PST | | results section. | + +--------+ + + + | EXTERNAL LAB: CBC | Routin | 07/30/2015 | | Results for this | | | e | 12:00 AM | | procedure are in the | | | | PDT | | results section. | + +--------+ + + + | COMPREHENSIVE | Routin | 07/30/2015 | | Results for this | | METABOLIC PANEL | e | 12:00 AM | | procedure are in the | | | | PDT | | results section. | + +--------+ + + + | URIC ACID | Routin | 04/01/2015 | | Results for this | | | e | 12:00 AM | | procedure are in the | | | | PDT | | results section. | + +--------+ + + + | COMPREHENSIVE | Routin | 04/01/2015 | | Results for this | | METABOLIC PANEL | e | 12:00 AM | | procedure are in the | | | | PDT | | results section. | + +--------+ + + + | EXTERNAL LAB: CBC | Routin | 12/18/2014 | | Results for this | | | e | 12:00 AM | | procedure are in the | | | | PST | | results section. | + +--------+ + + + | BASIC METABOLIC | Routin | 12/18/2014 | | Results for this | | PANEL | e | 12:00 AM | | procedure are in the | | | | PST | | results section. | + +--------+ + + + | EXTERNAL LAB: KEVIN | Routin | 12/17/2014 | | Results for this | | | e | 12:00 AM | | procedure are in the | | | | PST | | results section. | + +--------+ + + + | BASIC METABOLIC | Routin | 12/17/2014 | | Results for this | | PANEL | e | 12:00 AM | | procedure are in the | | | | PST | | results section. | + +--------+ + + + | EXTERNAL LAB: KEVIN | Routin | 12/16/2014 | | Results for this | | | e | 12:00 AM | | procedure are in the | | | | PST | | results section. | + +--------+ + + + | VITAMIN D, | Routin | 12/16/2014 | | Results for this | | DEFICIENCY SCREEN | e | 12:00 AM | | procedure are in the | | (25-HYDROXY) | | PST | | results section. | + +--------+ + + + | TSH | Routin | 12/16/2014 | | Results for this | | | e | 12:00 AM | | procedure are in the | | | | PST | | results section. | + +--------+ + + + | T4, FREE | Routin | 12/16/2014 | | Results for this | | | e | 12:00 AM | | procedure are in the | | | | PST | | results section. | + +--------+ + + + | MAGNESIUM | Routin | 12/16/2014 | | Results for this | | | e | 12:00 AM | | procedure are in the | | | | PST | | results section. | + +--------+ + + + | BASIC METABOLIC | Routin | 12/16/2014 | | Results for this | | PANEL | e | 12:00 AM | | procedure are in the | | | | PST | | results section. | + +--------+ + + + documented in this encounter Results Protein/Creatinine Ratio, Urine (01/03/2016 12:00 AM PST) + +-------+ + + + | Component | Value | Ref Range | Performed | Pathologist | | | | | At | Signature | + +-------+ + + + | Protein/Cre | 0 | 0 - 150 | EXTERNAL | [...] + + Urinalysis with Microscopic if Indicated (01/03/2016 12:00 AM PST) + + + + [...] + + + | Spec Grav, | 1.011 | 1.005 - 1.030 | EXTERNAL | | | Fluid | | | LAB | | + + + + + + | Leukocyte | 1+Comment: 100 | | EXTERNAL | | | [...] + +---------+ + + External Lab: CBC (01/03/2016 12:00 AM PST) + + + + + + | Component | Value | Ref Range | Performed | Pathologist | | | | | At | Signature | + + + + + + | WBC | 5.5 | 4.5 - 11.0 10 | EXTERNAL | | | | | | LAB | | + + + + + + | RED CELL | 4.08 | 3.8 - 5.1 10 | EXTERNAL | | | COUNT | | | LAB | | + + + + + + | Hgb | 11.9 (A) | 12 - 16 g/dL | EXTERNAL | | | | | | LAB | | + + + + + + | Hematocrit, | 37.4 | 35 - 45 % | EXTERNAL | | | POC | | | LAB | | + + + + + + | MCV | 91.6 | 81 - 99 fL | EXTERNAL [...] + + + + | Platelet | 250 | 140 - 440 K/ L | EXTERNAL | | | Count | | | LAB | | | Plasma | | | | | + + + + + + | RDW-CV | 14.4 | 10.5 - 15.0 % | EXTERNAL | | | | | | LAB | | + + + + + + | MPV | | fL | EXTERNAL | | | | | | LAB | | + + + + + + | Differentia | Auto | | EXTERNAL | | | l Type | | | LAB | | + + + + + + | % Segmented | 58.7 | 39 - 80 % | EXTERNAL | | | | | | LAB | | | Neutrophils | | | | | + + + + + + | % | 28.7 | 24 - 44 % | EXTERNAL | | | Lymphocytes | | | LAB | | + + + + + + | % Monocytes | 8.9 | 0 - 12 % | EXTERNAL | | | | | | LAB | | + + + + + + | % | 3.3 | 0 - 6 % | EXTERNAL | | | Eosinophils | | | LAB | | + + + + + + | % Basophils | 0.4 | 0 - 2 % | EXTERNAL [...] | + +---------+ + + Uric Acid (01/03/2016 12:00 AM PST) + +---------+ + + + | Component | Value | Ref Range | Performed | Pathologist | | | | | At | Signature | + +---------+ + + + | Uric Acid | 9.1 (A) | 2.3 - 6.6 | EXTERNAL [...] | | + +---------+ + + Magnesium (01/03/2016 12:00 AM PST) + +---------+ + + + [...] + +---------+ + + External Lab: CBC (07/30/2015 12:00 AM PDT) + + + + + + | Component | Value | Ref Range | Performed | Pathologist | | | | | At | Signature | + + + + + + | WBC | 4.4 (A) | 4.5 - 11.0 10 | EXTERNAL | | | | | | LAB | | + + + + + + | RED CELL | 3.91 | 3.8 - 5.1 10 | EXTERNAL | | | COUNT | | | LAB | | + + + + + + | Hgb | 11.7 (A) | 12.0 - 16.0 | EXTERNAL | | | | | g/dL | LAB | | + + + + + + | Hematocrit, | 36.1 | 35 - 45 % | EXTERNAL [...] + + + + | Platelet | 215 | 140 - 440 K/ L | EXTERNAL | | | Count | | | LAB | | | Plasma | | | | | + + + + + + | RDW-CV | 13.2 | 10.5 - 15.0 % | EXTERNAL | | | | | | LAB | | + + + + + + | MPV | | fL | EXTERNAL | | | | | | LAB | | + + + + + + | Differentia | Auto | | EXTERNAL | | | l Type | | | LAB | | + + + + + + | % Segmented | 58.5 | 39 - 80 % | EXTERNAL | | | | | | LAB | | | Neutrophils | | | | | + + + + + + | % | 29.7 | 24 - 44 % | EXTERNAL | | | Lymphocytes | | | LAB | | + + + + + + | % Monocytes | 7.0 | 0 - 12 % | EXTERNAL | | | | | | LAB | | + + + + + + | % | 4.1 | 0 - 6 % | EXTERNAL [...] + +---------+ + + Comprehensive Metabolic Panel (07/30/2015 12:00 AM PDT) + + + + [...] + + + + | Creatinine | 1.34 (A) | 0.70 - 1.18 | EXTERNAL | | | | | mg/dL | LAB | | + + + + + + | BUN/Creatin | 25.4 | 6.0 - 28.6 | EXTERNAL | | | ine Ratio | | | LAB | | + + + + + + | Calcium | 9.6 | 8.4 - 10.2 | EXTERNAL | | | | | mg/dL | LAB | | + + + + + + | Protein, | 6.7 | 6.0 - 8.0 g/dL | EXTERNAL | | | Total | | | LAB | | + + + + + + | Albumin | 4.0 | 3.5 - 5.0 | EXTERNAL | | | | | | LAB | | + + + + + + | Globulin | 2.7 | 1.8 - 3.5 | EXTERNAL | | | | | | LAB | | + + + + + + | A/G Ratio | 1.5 | 1.1 - 2.4 | EXTERNAL | | | | | | LAB | | + + + + + + | Bilirubin | 0.5 | 0.0 - 1.2 mg/dL | EXTERNAL | | | Total | | | LAB | | + + + + + + | ALP, | 84 | 30 - 128 | EXTERNAL | | | External | | | LAB | | + + + + + + | ALT | 23 | 7 - 52 U/L | EXTERNAL | | | | | | LAB | | + + + + + + | AST | 20 | 13 - 39 U/L | EXTERNAL | | | | | | LAB | | + + + + + + | Na | 136 | 132 - 143 | EXTERNAL | | | | | mmol/L | LAB | | + + + + + + | K | 4.5 | 3.6 - 5.1 | EXTERNAL | | | | | mmol/L | LAB | | + + + + + + | Cl | 103 | 95 - 112 mmol/L | EXTERNAL | | | | | | LAB | | + + + + + + | CO2 | 25 | 19 - 31 mmol/L | EXTERNAL | | | | | | LAB | | + + + + + + | Anion Gap | 12.5 | 7 - 21 mmol/L | EXTERNAL | | | | | | LAB | | + + + + + + | Estimated | 39 (A) | 60 - 140 mg/dL | [...] | + +---------+ + + Uric Acid (04/01/2015 12:00 AM PDT) + +---------+ + + + | Component | Value | Ref Range | Performed | Pathologist | | | | | At | Signature | + +---------+ + + + | Uric Acid | 7.9 (A) | 2.3 - 6.6 | EXTERNAL [...] + +---------+ + + Comprehensive Metabolic Panel (04/01/2015 12:00 AM PDT) + + + + + + | Component | Value | Ref Range | Performed | Pathologist | | | | | At | Signature | + + + + + + | Glucose, | 120 (A) | 70 - 100 mg/dL | EXTERNAL | | | Fasting | | | LAB | | + + + + + + | BUN | 28 (A) | 6 - 23 mg/dL | EXTERNAL | | | | | | LAB | | + + + + + + | Creatinine | 1.20 (A) | 0.70 - 1.18 | EXTERNAL | | | | | mg/dL | LAB | | + + + + + + | BUN/Creatin | 23.3 | 6.0 - 28.6 | EXTERNAL | | | ine Ratio | | | LAB | | + + + + + + | Calcium | 9.9 | 8.4 - 10.2 | EXTERNAL | | | | | mg/dL | LAB | | + + + + + + | Protein, | 6.9 | 6.0 - 8.0 g/dL | EXTERNAL | | | Total | | | LAB | | + + + + + + | Albumin | 4.2 | 3.5 - 5.0 | EXTERNAL | | | | | | LAB | | + + + + + + | Globulin | 2.7 | 1.8 - 3.5 | EXTERNAL | | | | | | LAB | | + + + + + + | A/G Ratio | 1.6 | 1.1 - 2.4 | EXTERNAL | | | | | | LAB | | + + + + + + | Bilirubin | 0.4 | 0.0 - 1.2 mg/dL | EXTERNAL | | | Total | | | LAB | | + + + + + + | ALP, | 100 | 30 - 128 | EXTERNAL | | | External | | | LAB | | + + + + + + | ALT | 24 | 7 - 52 U/L | EXTERNAL | | | | | | LAB | | + + + + + + | AST | 19 | 13 - 39 U/L | EXTERNAL | | | | | | LAB | | + + + + + + | Na | 139 | 132 - 143 | EXTERNAL | | | | | mmol/L | LAB | | + + + + + + | K | 4.9 | 3.6 - 5.1 | EXTERNAL | [...] + + + | Anion Gap | 19.9 | 7 - 21 mmol/L | EXTERNAL | | | | | | LAB | | + + + + + + | Estimated | 44 (A) | 60 - 140 mg/dL | [...] + +---------+ + + External Lab: CBC (12/18/2014 12:00 AM PST) + + + + + + | Component | Value | Ref Range | Performed | Pathologist | | | | | At | Signature | + + + + + + | WBC | 7.7 | 4.5 - 11.0 10 | EXTERNAL | | | | | | LAB | | + + + + + + | RED CELL | 3.20 (A) | 3.8 - 5.1 10 | EXTERNAL | | | COUNT | | | LAB | | + + + + + + | Hgb | 9.4 (A) | 12.0 - 16.0 | EXTERNAL | | | | | g/dL | LAB | | + + + + + + | Hematocrit, | 28.2 (A) | 35 - 45 % | EXTERNAL | | | POC | | | LAB | | + + + + + + | MCV | 88.4 | 81 - 99 fL | EXTERNAL [...] + + + + | Platelet | 280 | 140 - 440 K/ L | EXTERNAL | | | Count | | | LAB | | | Plasma | | | | | + + + + + + | RDW-CV | 13.5 | 10.5 - 15.0 % | EXTERNAL | | | | | | LAB | | + + + + + + | MPV | | fL | EXTERNAL | | | | | | LAB | | + + + + + + | Differentia | Auto | | EXTERNAL | | | l Type | | | LAB | | + + + + + + | % Segmented | 75.4 | 39 - 80 % | EXTERNAL | | | | | | LAB | | | Neutrophils | | | | | + + + + + + | % | 14.6 (A) | 24 - 44 % | EXTERNAL | | | Lymphocytes | | | LAB | | + + + + + + | % Monocytes | 7.9 | 0 - 12 % | EXTERNAL | | | | | | LAB | | + + + + + + | % | 1.3 | 0 - 6 % | EXTERNAL | | | Eosinophils | | | LAB | | + + + + + + | % Basophils | 0.8 | 0 - 2 % | EXTERNAL [...] | | | + +---------+ + + Basic Metabolic Panel (12/18/2014 12:00 AM PST) + +---------+ + + + | Component | Value | Ref Range | Performed | Pathologist | | | | | At | Signature | + +---------+ + + + | Glucose, | 142 (A) | 70 - 100 mg/dL | EXTERNAL | | | Fasting | | | LAB | | + +---------+ + + + | BUN | 28 (A) | 6 - 23 mg/dL | EXTERNAL | | | | | | LAB | | + +---------+ + + + | Creatinine | 1.15 | 0.70 - 1.18 | EXTERNAL | | | | | mg/dL | LAB | | + +---------+ + + + | BUN/Creatin | 24.3 | 6.0 - 28.6 | EXTERNAL | | | ine Ratio | | | LAB | | + +---------+ + + + | Calcium | 9.3 | 8.4 - 10.2 | EXTERNAL | | | | | mg/dL | LAB | | + +---------+ + + + | Na | 136 | 132 - 143 | EXTERNAL | | | | | mmol/L | LAB | | + +---------+ + + + | K | 4.8 | 3.6 - 5.1 | EXTERNAL | | | | | mmol/L | LAB | | + +---------+ + + + | Cl | 101 | 95 - 112 mmol/L | EXTERNAL | | | | | | LAB | | + +---------+ + + + | CO2 | 27 | 19 - 31 mmol/L | EXTERNAL | | | | | | LAB | | + +---------+ + + + | Anion Gap | 12.8 | 7 - 21 mmol/L | EXTERNAL | | | | | | LAB | | + +---------+ + + + | Estimated | 47 [...] + +---------+ + + External Lab: CBC (12/17/2014 12:00 AM PST) + + + + + + | Component | Value | Ref Range | Performed | Pathologist | | | | | At | Signature | + + + + + + | WBC | 9.9 | 4.5 - 11.0 10 | EXTERNAL | | | | | | LAB | | + + + + + + | RED CELL | 3.67 (A) | 3.8 - 5.1 10 | EXTERNAL | | | COUNT | | | LAB | | + + + + + + | Hgb | 10.3 (A) | 12.0 - 16.0 | EXTERNAL | | | | | g/dL | LAB | | + + + + + + | Hematocrit, | 32.7 (A) | 35 - 45 % | EXTERNAL | | | POC | | | LAB | | + + + + + + | MCV | 88.9 | 81 - 99 fL | EXTERNAL [...] + + + + | Platelet | 313 | 140 - 440 K/ L | EXTERNAL | | | Count | | | LAB | | | Plasma | | | | | + + + + + + | RDW-CV | 13.8 | 10.5 - 15.0 % | EXTERNAL | | | | | | LAB | | + + + + + + | MPV | | fL | EXTERNAL | | | | | | LAB | | + + + + + + | Differentia | Auto | | EXTERNAL | | | l Type | | | LAB | | + + + + + + | % Segmented | 78.8 | 39 - 80 % | EXTERNAL | | | | | | LAB | | | Neutrophils | | | | | + + + + + + | % | 12.5 (A) | 24 - 44 % | EXTERNAL | | | Lymphocytes | | | LAB | | + + + + + + | % Monocytes | 7.8 | 0 - 12 % | EXTERNAL | | | | | | LAB | | + + + + + + | % | 0.3 | 0 - 6 % | EXTERNAL [...] | | | + +---------+ + + Basic Metabolic Panel (12/17/2014 12:00 AM PST) + +---------+ + + + | Component | Value | Ref Range | Performed | Pathologist | | | | | At | Signature | + +---------+ + + + | Glucose, | 147 (A) | 70 - 100 mg/dL | EXTERNAL | | | Fasting | | | LAB | | + +---------+ + + + | BUN | 24 (A) | 6 - 23 mg/dL | EXTERNAL | | | | | | LAB | | + +---------+ + + + | Creatinine | 1.16 | 0.70 - 1.18 | EXTERNAL | | | | | mg/dL | LAB | | + +---------+ + + + | BUN/Creatin | 20.7 | 6.0 - 28.6 | EXTERNAL | | | ine Ratio | | | LAB | | + +---------+ + + + | Calcium | 9.2 | 8.4 - 10.2 | EXTERNAL | | | | | mg/dL | LAB | | + +---------+ + + + | Na | 134 | 132 - 143 | EXTERNAL | | | | | mmol/L | LAB | | + +---------+ + + + | K | 4.4 | 3.6 - 5.1 | EXTERNAL | | | | | mmol/L | LAB | | + +---------+ + + + | Cl | 99 | 95 - 112 mmol/L | EXTERNAL | | | | | | LAB | | + +---------+ + + + | CO2 | 25 | 19 - 31 mmol/L | EXTERNAL | | | | | | LAB | | + +---------+ + + + | Anion Gap | 14.4 | 7 - 21 mmol/L | EXTERNAL | | | | | | LAB | | + +---------+ + + + | Estimated | 46 (A) | 60 - 140 mg/dL | [...] + + Vitamin D, Deficiency Screen (25-Hydroxy) (12/16/2014 12:00 AM PST) + +--------+ + + + | Component | Value | Ref Range | Performed | Pathologist | | | | | At | Signature | + +--------+ + + + | Vit D, | 17 (A) | 30 - 100 | EXTERNAL | [...] + +---------+ + + External Lab: CBC (12/16/2014 12:00 AM PST) + + + + + + | Component | Value | Ref Range | Performed | Pathologist | | | | | At | Signature | + + + + + + | WBC | 9.9 | 4.5 - 11.0 10 | EXTERNAL | | | | | | LAB | | + + + + + + | RED CELL | 3.68 (A) | 3.8 - 5.1 10 | EXTERNAL | | | COUNT | | | LAB | | + + + + + + | Hgb | 10.5 (A) | 12.0 - 16.0 | EXTERNAL | | | | | g/dL | LAB | | + + + + + + | Hematocrit, | 32.6 (A) | 35 - 45 % | EXTERNAL | | | POC | | | LAB | | + + + + + + | MCV | 88.5 | 81 - 99 fL | EXTERNAL | | | | | | LAB | | + + + + + + | MCH | 32 | 30 - 36 pg | EXTERNAL | | | | | | LAB | | + + + + + + | MCHC | 29 | 27 - 33 g/dL | EXTERNAL | | | | | | LAB | | + + + + + + | Platelet | 320 | 140 - 440 K/ L | EXTERNAL | | | Count | | | LAB | | | Plasma | | | | | + + + + + + | RDW-CV | 13.9 | 10.5 - 15.0 % | EXTERNAL | | | | | | LAB | | + + + + + + | MPV | | fL | EXTERNAL | | | | | | LAB | | + + + + + + | Differentia | Auto | | EXTERNAL | | | l Type | | | LAB | | + + + + + + | % Segmented | 80.2 (A) | 39 - 80 % | EXTERNAL | | | | | | LAB | | | Neutrophils | | | | | + + + + + + | % | 12.8 (A) | 24 - 44 % | EXTERNAL | | | Lymphocytes | | | LAB | | + + + + + + | % Monocytes | 5.6 | 0 - 12 % | EXTERNAL | | | | | | LAB | | + + + + + + | % | 0.5 | 0 - 6 % | EXTERNAL | | | Eosinophils | | | LAB | | + + + + + + | % Basophils | 0.9 | 0 - 2 % | EXTERNAL [...] | | + +---------+ + + TSH (12/16/2014 12:00 AM PST) + +-------+ + + + | Component | Value | Ref Range | Performed | Pathologist | | | | | At | Signature | + +-------+ + + + | TSH | 2.86 | 0.270 - 4.20 | EXTERNAL | [...] | | | + +---------+ + + T4, Free (12/16/2014 12:00 AM PST) + +-------+ + + + | Component | Value | Ref Range | Performed | Pathologist | | | | | At | Signature | + +-------+ + + + | FREE T4 | 1.28 | 0.71 - 1.7 | EXTERNAL | | | (REF) | | | LAB | | + +-------+ + + + + + | Specimen | + + | Blood specimen | | (specimen) | + + + +---------+ + + | Performing | Address | City/State/Zipcode | Phone Number | | Organization | | | | + +---------+ + + | EXTERNAL LAB | | | | + +---------+ + + Magnesium (12/16/2014 12:00 AM PST) + +-------+ + + [...] | | | + +---------+ + + Basic Metabolic Panel (12/16/2014 12:00 AM PST) + + + + + + | Component | Value | Ref Range | Performed | Pathologist | | | | | At | Signature | + + + + + + | Glucose, | 125 (A) | 70 - 100 mg/dL | EXTERNAL | | | Fasting | | | LAB | | + + + + + + | BUN | 30 (A) | 6 - 23 mg/dL | EXTERNAL | | | | | | LAB | | + + + + + + | Creatinine | 1.47 (A) | 0.70 - 1.18 | EXTERNAL | | | | | mg/dL | LAB | | + + + + + + | BUN/Creatin | 20.4 | 6.0 - 28.6 | EXTERNAL | | | ine Ratio | | | LAB | | + + + + + + | Calcium | 9.2 | 8.4 - 10.2 | EXTERNAL | | | | | mg/dL | LAB | | + + + + + + | Na | 136 | 132 - 143 | EXTERNAL | | | | | mmol/L | LAB | | + + + + + + | K | 5.0 | 3.6 - 5.1 | EXTERNAL | | | | | mmol/L | LAB | | + + + + + + | Cl | 100 | 95 - 112 mmol/L | EXTERNAL | | | | | | LAB | | + + + + + + | CO2 | 27 | 19 - 31 mmol/L | EXTERNAL | | | | | | LAB | | + + + + + + | Anion Gap | 14.0 | 7 - 21 mmol/L | EXTERNAL | | | | | | LAB | | + + + + + + | Estimated | 35 (A) | 60 - 140 mg/dL | [...]
--- OUTSIDE RECORDS SUMMARY | ~2019-10-04 | XMS | Encounter Summary ---
Demographics + + + | Address | [address] | | | [place] [address] | + + + | Home Phone | | + + + | Preferred Language | Unknown | + + + | Marital Status | | + + + | Mormonism Affiliation | Unknown | + + + | Race | Unknown | + + + | Ethnic Group | Unknown | + + + Author + + + | Author | [facility] | | | and [place] | + + + | Organization | [facility] | | | and [place] | + + + | Address | Unknown | + + + | Phone | Unavailable | + + + Support + + + + + | Name | Relationship | Address | Phone | + + + + + | Last [facility] | E[place] | [address] | | | | | [place] | | | | | [address] | | + + + + + Care Team Providers + +------+ + | Care Hand Striper Name | Role | Phone | + +------+ + | Marilee Whaley | PCP | | | PA | | | + +------+ + Encounter Details +--------+ + + + + | Date | Type | Department | Care Team | Description | +--------+ + + + + | 01/02/ | Orders Only | [facility] | Jonathan Acosta MD | | | 2015 | | NEPHROLOGY [place] | [address] [place] | | | | | [address] [place] | [address] [place], [place] | | | | | [address] [place], [place] | [address] | | | | | [address] | | | | | | [phone] | | | +--------+ + + + [...] 2019 | Visit | | [address] [facility] | | | | | | [address] [place] | | | | | | [address] | | | | | | | [...] + | CULTURE, URINE | Routin | 01/04/2016 | | Results for this | | | e | 12:00 AM | | procedure are in the | | | | PST | | results section. | + +--------+ + + + | BASIC METABOLIC | Routin | 01/03/2016 | | Results for this | | PANEL | e | 12:00 AM | | procedure are in the | | | | PST | | results section. | + +--------+ + + + documented in this encounter Results Culture, Urine (01/04/2016 12:00 AM PST) + + | Specimen [...] + +---------+ + + Basic Metabolic Panel (01/03/2016 12:00 AM PST) + + + + + + | Component | Value | Ref Range | Performed | Pathologist | | | | | At | Signature | + + + + + + | Glucose, | 81 | 70 - 100 mg/dL | EXTERNAL | | | Fasting | | | LAB | | + + + + + + | BUN | 41 (A) | 6 - 23 mg/dL | EXTERNAL | | | | | | LAB | | + + + + + + | Creatinine | 1.39 (A) | 0.70 - 1.18 | EXTERNAL | | | | | mg/dL | LAB | | + + + + + + | BUN/Creatin | 29.5 (A) | 6.0 - 28.6 | EXTERNAL | | | ine Ratio | | | LAB | | + + + + + + | Calcium | 9.4 | 8.4 - 10.2 | EXTERNAL | | | | | mg/dL | LAB | | + + + + + + | Na | 137 | 132 - 143 | EXTERNAL | | | | | mmol/L | LAB | | + + + + + + | K | 5.3 (A) | 3.6 - 5.1 | EXTERNAL | | | | | mmol/L | LAB | | + + + + + + | Cl | 103 | 95 - 112 mmol/L | EXTERNAL | | | | | | LAB | | + + + + + + | CO2 | 23 | 19 - 31 mmol/L | EXTERNAL | | | | | | LAB | | + + + + + + | Anion Gap | 16.3 | 7 - 21 mmol/L | EXTERNAL | | | | | | LAB | | + + + + + + | Estimated | 37 (A) | 60 - 140 mg/dL | [...]
--- OUTSIDE RECORDS SUMMARY | ~2019-10-04 | XMS | Encounter Summary ---
Demographics + + + | Address | [address] | | | [place] [address] | + + + | Home Phone | | + + + | Preferred Language | Unknown | + + + | Marital Status | | + + + | Orthodox Affiliation | Unknown | + + + | Race | Unknown | + + + | Ethnic Group | Unknown | + + + Author + + + | Author | [facility] | | | and [place] | + + + | Organization | [facility] | | | and [place] | + + + | Address | Unknown | + + + | Phone | Unavailable | + + + Support + + + + + | Name | Relationship | Address | Phone | + + + + + | Last Garner | ECON | [address] | | | | | [place] | | | | | [address] | | + + + + + Care Team Providers + +------+ + | Care Order Packer Or Packager Name | Role | Phone | + +------+ + | Marilee Whaley | PCP | | | PA | | | + +------+ + Encounter Details +--------+ + + + + | Date | Type | Department | Care Team | Description | +--------+ + + + + | 01/02/ | Orders Only | [facility] | Fred Du, | Back pain | | 2016 | | NEUROSURGERY [address] | DO [address] | | | | | [address] | [address] [place], [place] | | | | | [place], [place] | [address] | | | | | [address] | | | | | | [phone] | | | +--------+ + + + [...] 2019 | Visit | | [address] [facility] | | | | | | [facility] | | | | | | [address] | | | | | | | [...] + | Diagnosis | + + | Back pain Backache, unspecified | + + documented in this encounter"
--- OUTSIDE RECORDS SUMMARY | ~2019-10-04 | XMS | Encounter Summary ---
Demographics + + + | Address | [address] | | | [place] [address] | + + + | Home Phone | | + + + | Preferred Language | Unknown | + + + | Marital Status | | + + + | Anabaptism Affiliation | Unknown | + + + | Race | Unknown | + + + | Ethnic Group | Unknown | + + + Author + + + | Author | [facility] | | | and [place] | + + + | Organization | [facility] | | | and [place] | + + + | Address | Unknown | + + + | Phone | Unavailable | + + + Support + + + + + | Name | Relationship | Address | Phone | + + + + + | Last Kishorcarlos | ECON | [address] | | | | | [place] | | | | | [address] | | + + + + + Care Team Providers + +------+ + | Care Word Processing Machine Operator Name | Role | Phone | + +------+ + | aMrilee Whaley | PCP | | | PA | | | + +------+ + Encounter Details +--------+ + + + + | Date | Type | Department | Care Team | Description | +--------+ + + + + | 05/26/ | Orders Only | [facility] | Rod cShaefer, | Type 2 diabetes | | 2019 | | NEPHROLOGY [place] | RU[employer]ER [employer] C[employer]TER [address] | mellitus with | | | | [address] | [address] | diabetic nephropathy | | | | [address] [place], [place] | [place], [place] | ([facility]); Chronic | | | | [address] | [address] | kidney disease, | | | | [phone] | [phone] | stage III (moderate) | | | | | | ([facility]) | +--------+ + + + + Social [...] 2020 | [facility] | | [address] [facility] | | | | | | [address] [place], [place] | | | | | | [address] | | | | | | | [...] | | | LAB | | | [facility] | | | | | + + [...]
--- OUTSIDE RECORDS SUMMARY | ~2019-10-04 | XMS | Encounter Summary ---
Demographics + + + | Address | [address] | | | [place] [address] | + + + | Home Phone | | + + + | Preferred Language | Unknown | + + + | Marital Status | | + + + | Restoration Affiliation | Unknown | + + + | Race | Unknown | + + + | Ethnic Group | Unknown | + + + Author + + + | Author | [facility] | | | and [place] | + + + | Organization | [facility] | | | and [place] | + + + | Address | Unknown | + + + | Phone | Unavailable | + + + Support + + + + + | Name | Relationship | Address | Phone | + + + + + | Last Kishorcarlos | ECON | [address] | | | | | [place] | | | | | [address] | | + + + + + Care Team Providers + +------+ + | Care Tester Compressed Gases Name | Role | Phone | + +------+ + | Marilee Whaley | PCP | | | PA | | | + +------+ + Encounter Details +--------+ + + + + | Date | Type | Department | Care Team | Description | +--------+ + + + + | 09/14/ | Orders Only | [facility] | Conversion | | | 2016 | | NEPRHOLOGY [place] | Transaction, | | | | | [address] | Provider Unknown | | | | | [address] [place], [place] | [phone] | | | | | [address] | | | | | | [phone] | | | +--------+ + + + [...] 2019 | Visit | | [address] [facility] | | | | | | [address] [place] | | | | | | [address] | | | | | | | [...]
--- OUTSIDE RECORDS SUMMARY | ~2019-10-04 | XMS | Clinical Summary ---
Demographics + + + | Address | [address] | | | [place] [address] | + + + | Home Phone | | + + + | Preferred Language | Unknown | + + + | Marital Status | | + + + | Episcopalian Affiliation | Unknown | + + + | Race | Unknown | + + + | Ethnic Group | Unknown | + + + Author + + + | Author | [facility] | | | and [place] | + + + | Organization | [facility] | | | and [place] | + + + | Address | Unknown | + + + | Phone | Unavailable | + + + Support + + + + + | Name | Relationship | Address | Phone | + + + + + | Last Kishorcarlos | ECON | [address] | | | | | [place] | | | | | [address] | | + + + + + Care Team Providers + +------+ + | Care Serials Librarian Name | Role | Phone | + +------+ + | Marilee Whaley | PCP | | | PA | | | + +------+ + Allergies No Known Allergies Medications + + + +---------+------+------+-------+ | Medication | Sig | Dispensed | Refills | Star | End | Statu | | | | | | t | Date | s | | | | | | Date | | | + + + +---------+------+------+-------+ | allopurinol | Take 100 mg by mouth | | 0 | | | Activ | | (ZYLOPRIM) 100 mg | Daily. | | | | | e | | tablet | | | | | | | + + + +---------+------+------+-------+ | metFORMIN | Take 1,000 mg by | | 0 | | | Activ | | (GLUCOPHAGE) 1000 MG | mouth 2 times daily | | | | | e | | tablet | (with breakfast & | | | | | | | | dinner). | | | | | | + + + +---------+------+------+-------+ | furosemide (LASIX) | Take 20 mg by mouth | | 0 | | | Activ | | 20 mg tablet | 2 times daily. | | | | | e | + + + +---------+------+------+-------+ | metoprolol | Take 25 mg by mouth | | 0 | | | Activ | | tartrate (LOPRESSOR) | 2 times daily. | | | | | e | | 25 mg tablet | | | | | | | + + + +---------+------+------+-------+ | MAG64 64 MG EC | TAKE 2 TABLETS BY | | 3 | 07/2 | | Activ | | tablet | MOUTH ONCE DAILY | | | 20 | | e | | | | | | 19 | | | + + + +---------+------+------+-------+ | ascorbic acid | Take 3,000 mg by | | 0 | | | Activ | | (VITAMIN C) 1000 MG | mouth. | | | | | e | | tablet | | | | | | | + + + +---------+------+------+-------+ | losartan (COZAAR) | Take 50 mg by mouth. | | 0 | 03/0 | 03/0 | Activ | | 50 mg tablet | | | | /20 | 6/20 | e | | | | | | 19 | 20 | | + + + +---------+------+------+-------+ | nitroglycerin | Place 0.4 mg under | | 0 | 01/2 | 01/2 | Activ | | (NITROSTAT) 0.4 mg | the tongue. | | | 4/20 | 4/20 | e | | SL tablet | | | | 19 | 20 | | + + + +---------+------+------+-------+ | fish oil 1,000 mg | Take 1 g by mouth. | | 0 | | | Activ | | capsule | | | | | | e | + + + +---------+------+------+-------+ | simvastatin | Take 20 mg by mouth. | | 0 | 07/0 | | Activ | | (ZOCOR) 20 mg tablet | | | | 2/20 | | e | | | | | | 18 | | | + + + +---------+------+------+-------+ | diphenhydrAMINE | Take 25 mg by mouth | | 0 | | | Activ | | (BENADRYL) 25 mg | Daily as needed for | | | | | e | | tablet | Itching. | | | | | | + + + +---------+------+------+-------+ | acetaminophen | Take 1,000 mg by | | 0 | | | Activ | | (TYLENOL) 500 mg | mouth every 6 hours | | | | | e | | tablet | as needed for Pain. | | | | | | + + + +---------+------+------+-------+ | aspirin 81 mg EC | Take 81 mg by mouth | | 0 | | | Activ | | tablet | Daily. | | | | | e | + + + +---------+------+------+-------+ | cholecalciferol | Take 50 mcg by mouth | | 0 | | | Activ | | (VITAMIN D-3) 50 mcg | Daily. | | | | | e | | (2,000 units) | | | | | | | | tablet | | | | | | | + + + +---------+------+------+-------+ | magnesium chloride | Take 1 tablet by | 90 | 3 | 12/0 | | Activ | | (MAG64) 64 mg EC | mouth nightly. | tablet | | 3/20 | | e | | tabletIndications: | | | | 19 | | | | Chronic kidney | | | | | | | | disease, stage III | | | | | | | | (moderate) (HCC), | | | | | | | | Hypomagnesemia | | | | | | | + + + +---------+------+------+-------+ | aspirin 325 mg | Take 325 mg by mouth | | 0 | | 08/29 | Disco | | tablet | Daily. | | | | 20 | ntinu | | | | | | | 19 | ed | | | | | | | | ([place] | | | | | | | | ent | | | | | | | | Not | | | | | | | | Takin | | | | | | | | g) | + + + +---------+------+------+-------+ | cholecalciferol | Take 1,000 Units by | | 0 | | 08/29 | Disco | | (VITAMIN D-3) 1,000 | mouth Daily. | | | | 220 | ntinu | | units capsule | | | | | 19 | ed | | | | | | | | ([place] | | | | | | | | ent | | | | | | | | Not | | | | | | | | Takin | | | | | | | | g) | + + + +---------+------+------+-------+ | lisinopril | Take 40 mg by mouth | | 0 | | 08/29 | Disco | | (PRINIVIL,ZESTRIL) | Daily. | | | | 2/20 | ntinu | | 40 MG tablet | | | | | 19 | ed | | | | | | | | ([place] | | | | | | | | ent | | | | | | | | Not | | | | | | | | Takin | | | | | | | | g) | + + + +---------+------+------+-------+ | MAG64 64 MG EC | TAKE 2 TABLETS BY | 180 | 0 | 08/ | 08/29 | Disco | | tablet | MOUTH ONCE DAILY | tablet | | 05/17 | 2/20 | ntinu | | | | | | 19 | 19 | ed | | | | | | | | (Dupl | | | | | | | | icate | | | | | | | | | | | | | | | | Entry | | | | | | | | ) | + + + +---------+------+------+-------+ | amLODIPine | | | 0 | 02/2 | 08/29 | Disco | | (NORVASC) 5 mg | | | | 11/17 | 12/18 | ntinu | | tablet | | | | 19 | 19 | ed | | | | | | | | ([place] | | | | | | | | ent | | | | | | | | Not | | | | | | | | Takin | | | | | | | | g) | + + + +---------+------+------+-------+ Active Problems + + + | Problem | Noted Date | + + + | Hemorrhage of cyst of eyak kidney | 06/23/2019 | + + + | Pacemaker | 11/21/2018 | + + + + + | Overview: 11/21/2018DDD SJM PPM implanted for symptomatic CHB | | 11/20/1910/09/2019She feels much better with the pacemaker. | | Appropriate device function. There were no arrhythmias. The | | pacing threshold was 0.75 V at 0.5 ms in the atrium and 0.75 V at | | 0.6 ms in the RV. R waves were 4.5 mV and P waves were 4 mV. The | | underlying rhythm was NSR 80s. Stable lead threshold(s), | | impedance and battery status. Device was adjusted to optimize | | battery length while maintaining adequate safety margins. On last | | visit, she was dependent in complete heart block. Now RV pacing | | 1.8% | + + + + + | Bradycardia | 11/20/2018 | + + + | Drug toxicity | 11/20/2018 | + + + | BMI 45.0-49.9, adult | 11/19/2018 | + + + + + | Overview: Weight loss was recommended. | + + + + + | Third degree AV block | 11/19/2018 | + + + + [...] | 01/10/2016 | + + + | Adenoma of right adrenal gland | 11/16/2015 | + + + | Chronic kidney disease, stage III (moderate) | 11/16/2015 | + + + | Essential hypertension, benign | 11/16/2015 | + + + + + | Overview: Recommend increasing metoprolol 50 mg twice a day. | | Stop Lasix, potassium, and amlodipine. Increase losartan to 50 mg | | daily at bedtime. She looks dry. | + + + + + | Renal mass, left | 11/16/2015 | + + + | Type 2 diabetes mellitus with diabetic nephropathy | 11/16/2015 | + + + Encounters +--------+ + + + + | Date | Type | Specialty | Care Team | Description | +--------+ + + + + | 09/24/ | Refill | Nephrology | Rod Schaefer, | Medication Refill | | 2019 | | | OFFAL TRIMMER | | +--------+ + + + + | 09/09/ | Procedure | Cardiology | | Pacemaker (Primary | | 2018 | visit | | | Dx) | +--------+ + + + + | 09/09/ | Office | Cardiology | Valerie Escalera ANP | Third degree AV | | 2018 | Visit | | | block (HCC) (Primary | | | | | | Dx); Pacemaker | +--------+ + + + + | 08/14/ | Orders Only | Nephrology | Jonathan Acosta MD | Hemorrhage of cyst | | 2018 | | | | of eyak kidney | | | | | | (Primary Dx) | +--------+ + + + + from Last 3 Months Immunizations + + + + | Name | Administration Dates | Next Due | + + + + | INFLUENZA PF | 11/20/2018 | | | QUAD(PED/ADOL/ADULT) | | | | ,PSKT or VIAL | | | + + + + | PNEUMOCOCCAL | 11/20/2018 | | | POLYSACCHARIDE | | | | 23-VALENT (PPSV23) | | | + + + + Family History + + +------+ + | Medical History | Relation | Name | Comments | + + +------+ + | Other (see comment) | Daughter | | Hypothyroidism | + + +------+ + | Thyroid disease | Daughter | | HYPOTHYROID | + + +------+ + | Diabetes | Father | | | + + +------+ + | Diabetes, NIDDM | Father | | | + + +------+ + | Cancer | Mother | | Skin-Malignant Tumor | + + +------+ + | Diabetes | Mother | | | + + +------+ + + +------+--------+ + | Relation | Name | Status | Comments | + +------+--------+ + | Child | | Alive | | + +------+--------+ + | Child | | Alive | | + +------+--------+ + | Child | | Alive | | + +------+--------+ + | Daughter | | | | + +------+--------+ + | Daughter | [...] recent travel history available. | + + Last Filed Vital Signs + [...] | 36.8 C (98.2 F) | 11/21/2018 11:47 AM | | | | | PST | | + + + + + | Respiratory Rate | 16 | 01/02/2019 2:02 PM | | | | | PST [...] | | + + + + + Plan of Treatment +--------+ + + + + | Date | Type | Specialty | Care Team | Description | +--------+ + + + + | 12/15/ | Office | Nephrology | Jonathan Acosta MD | | | 2020 | [facility] | | [address] [facility] | | | | | | [address] [place] | | | | | | [address] | | | | | | | [...] | + + + + + | Hepatitis C | | | | | Screening | 5 | | | + + + + + | Diabetic Eye Exam | | | | | | 3 | | | + + + + + | Diabetic Foot Exam | | | | | | 3 | | | + + + + + | Vaccine: | | | | | Dtap/Tdap/Td (1 - | 4 | | | | Tdap) | | | | + + + + + | Colorectal Cancer | | | | | Screening | 5 | | | | (Colonoscopy) | | | | + + + + + | Vaccine: Zoster (1 | | | | | of 2) | 5 | | | + + + + + | Breast Cancer | | | | | Screening | 0 | | | + + + + + | Hemoglobin A1c | | 09/14/2016 | | | Screening | 7 | | | + + + + + | Adult Annual | | | | | Wellness Visit | 9 | | | + + + + + | Vaccine: Influenza | | 11/20/2018, 09/10/2017 | | | (#1) | 9 | | | + + + + + | Vaccine: | | 11/20/2018 | | | Pneumococcal 65+ (2 | 0 | | | | of 2 - PCV13) | | | | + + + + + Implants + +------+------+ +--------+--------+--------+ | Implanted | Type | Area | Manufacture | Device | Shelf | Model | | | | | r | | Expira | / | | | | | | Identi | tion | Serial | | | | | | fier | Date | / Lot | + +------+------+ +--------+--------+--------+ | Dae-11/20/2018Implanted: | | | | | | | | 11/20/2018 by Tejas Beltran | | | | | | | | MD Zach (Quantity not on | | | | | | | | file) | | | | | | | + +------+------+ +--------+--------+--------+ + + | Description:Pacemaker is MRI | | conditional Assurity model | | 2272, leads are [id number]-[id number] and | | [id number]-58. Schedule MRI | | with rep. Cecile 06/19/19 | + + Procedures + +--------+ + + + | [...] section. | + +--------+ + + + from Last 3 Months Results ECG 12 lead (09/09/2019 3:38 PM [...] | | | | | by [facility] [place] Read Only, | | | | | | [facility] Madi (292), | | | | | | editor book Giovanni Cerda | | | | | | (312) on 09/10/2019 | | | | | [...] | | | + +---------+ + + Device Interrogation (09/09/2019 3:15 PM PST) + + + | Narrative | Performed At | + + + | Dru Ceja, | [facility] | | Technologist 09/09/2019 4:14 PMPrior to beginning diagnostic | | | procedure, Dr. Beltran was identified as provider on the floor/provider | | | of record. Device interrogation done by Valerie Escalera Any events or | | | changes listed in office note. See device data attached to scheduled | | | encounter for additional details. braid folder: Dru Vasquez | | | | | |See device data attached to scheduled encounter for additional | | |details. | | | | | |braid folder: Dru Vasquez | | | | | + + + + +---------+ + + | Performing | Address | City/State/Zipcode | Phone Number | | Organization | | | | + +---------+ + + | [facility] | | | | + +---------+ + + from Last 3 Months Insurance + +--------+ +--------+ +---------+--------+ | Payer | Benefi | Subscriber | Effect | Phone | Address | Type | | | t Plan | ID | lashae | | | | | | / | | Dates | | | | | | Group | | | | | | + +--------+ +--------+ +---------+--------+ | MEDICARE | MEDICA | [id number] | | [phone] | | Medica | | | RE | | 009-Pr | 5 | | re | | | PART A | | esent | | | | | | AND B | | | | | | + +--------+ +--------+ +---------+--------+ | MEDICARE | MEDICA | [id number] | | [phone] | | Medica | | | RE | | 009-Pr | 5 | | re | | | PART A | | esent | | | | | | AND B | | | | | | + +--------+ +--------+ +---------+--------+ | [employer] SENIOR | AMERIC | [id number] | | [phone] | | Indemn | | SUPPLEMENTAL INS | AN | | 016-Pr | 7 | | ity | | | CONTIN | | esent | | | | | | ENTAL | | | | | | | | INS CO | | | | | | | | MDCR | | | | | | | | SUPPL | | | | | | + +--------+ +--------+ +---------+--------+ | CIGNA | CIGNA | [id number] | 11/29/19 | [phone] | | Indemn | | | MDCR | | 18-Pre | 1 | | ity | | | SUPPLE | | sent | | | | | | MENT | | | | | | | | SOLUTI | | | | | | | | ONS | | | | | | + +--------+ +--------+ +---------+--------+ + +--------+ +--------+ + + | Guarantor Name | Accoun | Relation to | Date | Phone | Billing Address | | | t Type | Patient | of | | | | | | | | | | + +--------+ +--------+ + + | Felicitas Garner | Person | Self [birth year] | [id number] | | | al/Fam | | 1946 | [phone] | [place], [place] | | | rory | | | [address] (Home) | [address] | + +--------+ +--------+ + + | Felicitas Garner | Person | Self [birth year] | [id number] | | | al/Fam | | 1946 | [phone] | [place], [place] | | | rory | | | 7 (Home) | [address] | + +--------+ +--------+ + + Advance Directives + + + + + | Type | Date Recorded | Patient | Explanation | | | | College Professor | | + + + + + | Power of | | | | | Newspaper Illustrator | | | | + + + + + | Advance | | | | | Directive | | | | + + + + +
--- OUTSIDE RECORDS SUMMARY | ~2019-10-04 | XMS | Encounter Summary ---
Demographics + + + | Address | [address] | | | [place] [address] | + + + | Home Phone | | + + + | Preferred Language | Unknown | + + + | Marital Status | | + + + | Temple Affiliation | Unknown | + + + [...] + | Last [facility] | ECON | [address] | | | | | [place] | | | | | [phone] | | + + + + + Care Team Providers + +------+ + | Care Materials Intern Name | Role | Phone | + +------+ + | Marilee Whaley | PCP | | | PA | | | + +------+ + Encounter Details +--------+ + + + + | Date | Type | Department | Care Team | Description | +--------+ + + + + | 11/19/ | Hospital | [facility] | Nini Brewer DO | Diagnosis unknown; | | 2019 - | Encounter | [facility] | [address] | Third degree heart | | | | CARE FLOOR [address] | [place] [address] | block ([facility]); | | 11/21/ | | [address] | [phone] | Bradycardia; Third | | 2019 | | [place], [place] | | degree AV block | | | | [phone] | | ([facility]); Benign | | | | [phone] | | essential | | | | | | hypertension; 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 | | | | | | with diabetic | | | | | | nephropathy, without | | | | | | long-term current | | | | | | use of insulin | | | | | | ([facility]); Stage 3 | | | | | | chronic kidney | | | | | | disease ([facility]) | +--------+ + + + [...] + + + | Blood Pressure | 174/80 | 11/21/2018 11:47 AM | | | | | PST | | + + + + + | Pulse | 87 | 11/21/2018 11:47 AM | | | | | PST | | + + + + + | Temperature | 36.8 C (98.2 F) | 11/21/2018 11:47 AM | | | | | PST | | + + + + + | Respiratory Rate | 18 | 11/21/2018 11:47 AM | | | | | PST | | + + + + + | Oxygen Saturation | - | - | | + + + + + | Inhaled Oxygen | - | - | | | Concentration | | | | + + + + + | Weight | 116.5 kg (256 lb | 11/21/2018 11:47 AM | | | | 13.4 oz) | PST | | + + + + + | Height | 157.5 cm (5' 2") | 11/21/2018 11:47 AM | | | | | PST | | + + + + + | Body Mass Index | 46.98 | 11/21/2018 11:47 AM | | | | | PST | | + + + + + documented in this encounter Discharge Summaries Jocelyne King MD - 11/21/2018 9:30 AM PST Discharge Summaries by Jocelyne King MD at 11/21/18929 Author: Jocelyne King MD Service: Hospitalist Author Type: Physician Filed: 11/21/18 1712 Date of Service: 11/21/18929 Status: Signed Intramural Director: Jocelyne King MD (Physician) Patient ID: Felicitas Ayala [id number] 73 y.o. 1945 Admit date: 11/19/2018 Discharge date and time: 11/21/18 Admitting Physician: Yasir García MD Discharge Physician: MD Carol Consults: Primary Discharge Diagnoses: Third degree heart block (HCC) [I44.2] Bradycardia [R00.1] Third degree AV block (HCC) [I44.2] Diagnosis unknown [R69] acute diastolic CHF Discharged Condition: good Significant Diagnostic Studies: Lab Results Component Value Date WBC 6.56 11/21/2018 HGB 10.7 (L) 11/21/2018 HCT 33.8 (L) 11/21/2018 MCV 88.8 11/21/2018 PLT 312 11/21/2018 GLUCOSE Date Value Ref Range Status 11/21/2018 163 (H) 65 - 99 mg/dL Final BUN Date Value Ref Range Status 11/21/2018 48 (H) 8 - 25 mg/dL Final CREATININE Date Value Ref Range Status 11/21/2018 1.3 (H) 0.50 - 1.00 mg/dL Final BUN/CREAT Date Value Ref Range Status 11/21/2018 37 Final TOTAL PROTEIN Date Value Ref Range Status 11/19/2018 7.4 6.3 - 8.2 g/dL Final GLOBULIN Date Value Ref Range Status 11/19/2018 4.3 1.3 - 4.9 g/dL Final TBIL Date Value Ref Range Status 11/19/2018 0.6 0.1 - 1.5 mg/dL Final ALT Date Value Ref Range Status 11/19/2018 50 10 - 65 U/L Final AST Date Value Ref Range Status 11/19/2018 29 10 - 45 U/L Final SODIUM Date Value Ref Range Status 11/21/2018 140 135 - 145 mmol/L Final POTASSIUM Date Value Ref Range Status 11/21/2018 3.9 3.5 - 4.9 mmol/L Final CHLORIDE Date Value Ref Range Status 11/21/2018 105 99 - 109 mmol/L Final CO2 Date Value Ref Range Status 11/21/2018 24 23 - 32 mmol/L Final ANION GAP AGAP Date Value Ref Range Status 11/21/2018 15 5 - 20 mmol/L Final X-ray Chest Frontal And Lateral (today) Result Date: 11/20/2018 CHEST TWO VIEWS CLINICAL INFORMATION: Device placement. COMPARISON: XR CHEST 1 VIEW ( 019); CHEST ONE VIEW (11/19/2018); FINDINGS: Left pacemaker with intact leads. Bilateral pulm onary vascular congestion. No pneumothorax, no pleural effusion. Heart size and mediastinal contours are normal. No acute osseous abnormality. Bilateral pulmonary vascular congestion. Left pacemaker with intact leads. Signed by: Arnol Martinez Sign Date/Time: 11/20/2018 4:09 PM X-ray Chest 1 View Result Date: 11/19/2018 This is a non-reportable procedure without a radiologist report and is used for image Ghostery Cl Pacemaker Dual Generator With Leads Result Date: 11/20/2018 ME OCEDURE: Permanent dual-chamber pacemaker. HISTORY: This 73-year-old female was referred f or a dual-chamber permanent pacemaker because of symptomatic complete heart block associated with acute diastolic heart failure. She has a history of diabetes mellitus, hypertension, and chronic kidney disease. She has had 7-10 days of progressive shortness of breath and so me edema. Symptomatic bradycardia with heart rates of 40 beats per minute. DESCRIPTION OF P ROCEDURE: The patient was brought to the electrophysiology laboratory in the postabsorptive , nonsedated state. Sedation had been given with a little bit of morphine prior to her arri cecilia and our anesthesiologist kept her controlled well during the procedure. A temporary pac emaker was initially placed into the right ventricle. Afterwards, the chest was prepped and draped in the usual sterile fashion and locally anesthetized with 1% Xylocaine. The left velasquez bclavian vein was accessed twice and 2 guidewires were placed into the vessel. A pacemaker pocket was fashioned using sharp and blunt dissection and electrocautery in the usual manner . A 6-Sudanese introducer was placed into the subclavian vein; and through that, a St. Dae m leonard 2088TC-58 cm, serial number [id number] lead was placed into the apex of the right ventri umang towards the septum and screwed into position. The final pacing threshold was 0.75 volts at 0.4 milliseconds and R waves were not achieved since she was in heart block and being pa wang by the temporary pacemaker. The lead impedance was 540 ohms. The lead was anchored wit h two #1 Ethibond sutures. Another 6-Sudanese sheath was placed into the subclavian vein; and through that, a St. Dae model 2088TC-52 cm, serial number [id number] lead was placed into th e high right atrium and screwed into position. The final pacing threshold was 0.75 volts at 0.4 milliseconds and P-waves were 4.3 karan volts with an impedance of 490 ohms. The lead was anchored with two #1 Ethibond sutures. The leads were attached to a St. Dae Assurity MR I-compatible, model 2272, serial number [id number] pacemaker. That device was placed into the pocket and anchored with a #1 Ethibond suture. The pocket was closed with 4 layers, using 2 -0 Vicryl for the deep 2 layers, 3-0 Vicryl for the next layer, and 4-0 Monocryl for the sup erficial layer. A Dermabond dressing was applied. There were no apparent complications. The temporary pacemaker was removed from the right femoral root and the sheath was also removed . Hemostasis was obtained using local digital pressure. FINAL SETTINGS FOR THE PACEMAKER: M ode for pacing DDD with a lower rate of 60 and an upper rate of 125 beats per minute. The p aced AV delay will be 180 milliseconds and sensed AV delay 160 milliseconds. Pacing and sen sing will be bipolar in both chambers. The output will be 5 volts at 0.6 milliseconds in th e ventricle and 3.5 volts at 0.6 milliseconds in the atrium. FINAL IMPRESSION: Good pacing and sensing thresholds. Appropriate device function seen. RECOMMENDATIONS: Continue curren t therapy. Her beta-lai will be resumed given her hypertension and diabetes. Hopefully , she can be sent home tomorrow, if all goes well. Read by TEJAS CLARKE MD 11/20/2018 11:05 A Cl Pacemaker Temporary Single Result Date: 11/20/2018 Te mporary right ventricular pacemaker. HISTORY: This 73-year-old female was referred for an u rgent permanent pacemaker because of complete heart block associated with symptoms of heart failure. She has chronic diabetes mellitus, hypertension, and chronic kidney disease. She is obese and was in heart failure today. A temporary pacemaker was recommended prior to the permanent because of complete heart block to make sure that it was safe to proceed with the permanent pacemaker. PROCEDURE: The patient was brought to the electrophysiology laborator y in the postabsorptive, nonsedated state. She had been given a little bit of morphine up i n the ICU and a little bit of sedation by our anesthesiologist here. The right groin was pr epped and draped in the usual sterile fashion and locally anesthetized with 1 percent xyloca ine. A 6-Sudanese sheath was placed into the right femoral vein and through that, a 6-Sudanese quadripolar pacing catheter was advanced into the apex of the right ventricle with a good ca pture threshold. The pacemaker was programmed at VVI pacing mode at 80 beats per minutes, w ith an * * * rate of 10. A Tegaderm dressing was placed over the device. She tolerated th e procedure well. There were no complications. FINAL IMPRESSION: Successful temporary righ t ventricular pacemaker. RECOMMENDATIONS: Proceed with preparations for a permanent pacemak er. Read by TEJAS CLARKE MD 11/20/2018 10:14 A Echo Cardiac Adult Complete Result Date: 11/20/2018 Patient Name: FELICITAS AYALA Date of : 1945 Performing Phys ician: Hubert Lenz I NDICATIONS complete heart block CONCLUSIONS 1. This was a technicall y difficult study with suboptimal views. 2. Left ventricular systolic function is hyperdynam ic with an estimated EF of >70%. FINDINGS -------- ECG rhythm: Sinus with complete heart blo ck. Study: A 2-dimensional transthoracic echocardiogram with m-mode, spectral and color flow Doppler was perfomed. Study: This was a technically difficult study with suboptimal views. Left Ventricle: Left ventricular systolic function is hyperdynamic with an estimated EF of > 70%. Left Ventricle: There is mild concentric left ventricular hypertrophy. Left Ventricle: Poor endocardial border definition prevents accurate regional wall motion abnormality identi fication. Right Ventricle: The RV was not well visualized. Left Atrium: The left atrium was not well visualized. Left Atrium: The left atrium is mildly dilated. Right Atrium: The right atrium was not well visualized. Aortic Valve: The aortic valve was not well visualized, asiya ears trileaflet in limited views. Aortic Valve: There is no evidence of aortic regurgitation . Aortic Valve: There is no evidence of aortic stenosis. Mitral Valve: The mitral valve was not well visualized. Mitral Valve: No mitral regurgitation. Tricuspid Valve: The tricuspid v alve was not well visualized. Tricuspid Valve: No regurgitation noted Tricuspid Valve: The p oor TR signal prevents accurate estimation of pulmonary pressures. Pulmonic Valve: The pulmo suzanna valve was not well visualized. Pericardium: There is no pericardial effusion. IVC/Hepati c Veins: The IVC was not well visualized. MEASUREMENTS Ao asc: 3.43 cm Ao si nus: 3.94 cm IVC: 2.66 cm EDV(Teich): 73.76 ml IVSd: 1.07 cm LVIDd: 4.08 cm LVPWd: 1.27 cm LVOT Diam: 2.10 cm %FS: 40.04 % EF(Teich): 71.17 % ESV(Teich): 21.26 ml I VSs: 1.50 cm LVIDs: 2.45 cm LVPWs: 1.50 cm SV(Teich): 52.50 ml LAESV(A-L): 76.53 m l LAESV Index (A-L): 35.76 ml/m2 LAAs A2C: 22.33 cm2 LAESV A-L A2C: 76.80 ml LALs A2C: 5.51 cm LAAs A4C: 22.25 cm2 LAESV A-L A4C: 64.48 ml LALs A4C: 6.51 cm HR: 39.73 B PM AV maxP.44 mmHg AV meanP.35 mmHg AV Vmax: 2.20 m/s AV Vmean: 1.46 m/s AV VTI: 44.80 cm LIANG Vmax: 2.51 cm2 LIANG (VTI): 2.68 cm2 AVAI Vmax: 0.00 cm2/m2 AVAI (V TI): 0.00 cm2/m2 LVCI Dopp: 2.21 l/minm2 LVCO Dopp: 4.74 l/min HR: 39.51 BPM LVOT ma xP.15 mmHg LVOT meanP.45 mmHg LVSI Dopp: 56.12 ml/m2 LVSV Dopp: 120.10 ml L VOT Vmax: 1.59 m/s LVOT Vmean: 1.10 m/s LVOT VTI: 34.50 cm MV A Dino: 1.48 m/s MV Dec T: 328.00 ms MV E Dino: 1.24 m/s MV E/A Ratio: 0.83 Septal e': 0.09 m/s Septal E/e': 13.30 HR: 39.28 BPM PV maxP.70 mmHg PV meanP.50 mmHg PV Vmax: 1.29 m/s PV Vmean: 0.89 m/s PV VTI: 24.78 cm Tire Setter: JESS Authenticated by: Hubert cohen Date/Time: 11-20-2018 8:24:22 1. This was a technically difficult study with suboptimal views. 2. Left ventricular systol ic function is hyperdynamic with an estimated EF of >70%. HPI and Hospital Course: 73-year-old female with past medical history diabetes mellitus typ e II, renal mass, edema, right adrenal gland who was transferred from [facility] w ith a third-degree block and complaining of shortness of breath with exertion, increased swe lling in the legs associated with chest tightness. Patient was also found to be in acute di astolic CHF excess sedation and third-degree heart block on admission. Third-degree heart block for which Dr. Clarke consulted and patient underwent dual-chamber S t. Dae pacemaker and patient restarted on metoprolol 25 mg twice a day. Patient is being d ischarged home today with follow-up with Dr. Clarke as an outpatient Acute diastolic CHF improved with diuresis and acrochordon showed ejection fraction more th an 70%. Patient Lasix increased to 40 mg and discharged home on metoprolol 25 mg twice a da y.Patient BMP andelectrolytes need to be checked within a week chronic kidney disease stage III stable I spent more than 30 minutes on discharge BP 146/60 (BP Location: Right forearm) | Pulse 96 | Temp 98.3 F (36.8 C) (Oral) | Re sp 18 | Ht 1.575 m (5' 2") | Wt 116.5 kg (256 lb 13.4 oz) | SpO2 92% | ? No | BMI 46.98 kg/m Intake/Output Summary (Last 24 hours) at 11/21/18 0930 Last data filed at 11/21/18 0595 Gross per 24 hour Intake 500 ml Output 750 ml Net -250 ml Discharge Exam: Constitutional: Alert and oriented to person, place, and time. Appears well-developed and w ell-nourished. Cardiovascular: Normal rate, regular rhythm, normal heart sounds and intact distal pulses. Exam reveals no gallop and no friction rub. No murmur heard. Pulmonary/Chest: Effort normal and breath sounds normal. No stridor. No respiratory distres s. no wheezes. no rales. exhibits no tenderness. Abdominal: Soft. Bowel sounds are normal. exhibits no distension and no mass. There is no t enderness. There is no rebound and no guarding. Musculoskeletal: Normal range of motion.exhibits no tenderness. exhibits no edema. Neurological: Alert and oriented to person, place, and time. Has normal reflexes. display s normal reflexes. No cranial nerve deficit. Exhibits normal muscle tone. Coordination norm al. Skin: Skin is warm and dry. No rash noted. No erythema. No pallor. Psychiatric: Has a normal mood and affect. Behavior is normal. Judgment normal. Disposition: Final discharge disposition not confirmed Patient Instructions: Medication List START taking these medications aspirin 81 MG EC tablet QTY: 30 tablet Refills: 0 Take 1 tablet by mouth daily with breakfast. Start taking on: 11/22/2018 Replaces: aspirin 325 MG tablet losartan 25 MG tablet QTY: 30 tablet Refills: 0 For diagnoses: Essential hypertension, benign Commonly known as: COZAAR Take 1 tablet by mouth daily. Start taking on: 11/22/2018 nitroGLYCERIN 0.4 MG SL tablet QTY: 90 tablet Refills: 0 For diagnoses: Third degree AV block Commonly known as: NITROSTAT Place 1 tablet under the tongue every 5 (five) minutes as needed for Chest pain. CHANGE how you take these medications furosemide 20 MG tablet QTY: 30 tablet Refills: 0 Commonly known as: LASIX Take 1 tablet by mouth daily. What changed: how much to take metoprolol 25 MG tablet QTY: 60 tablet Refills: 0 For diagnoses: Essential hypertension, benign Commonly known as: LOPRESSOR Take 1 tablet by mouth 2 (two) times daily. What changed: when to take this CONTINUE taking these medications allopurinol 100 MG tablet QTY: 180 tablet Refills: 3 For diagnoses: Chronic kidney disease, stage III (moderate), Essential hypertension, benig n, Adenoma of right adrenal gland, Renal mass, left Commonly known as: ZYLOPRIM Take 2 tablets by mouth daily. amLODIPine 5 MG tablet QTY: 90 tablet Refills: 3 Commonly known as: NORVASC Take 1 tablet by mouth daily. ascorbic acid 1000 MG tablet Refills: 0 For diagnoses: Chronic kidney disease, stage III (moderate), Essential hypertension, benig n, Adenoma of right adrenal gland Commonly known as: VITAMIN C cholecalciferol 1000 units tablet Refills: 0 For diagnoses: Chronic kidney disease, stage III (moderate), Essential hypertension, benig n, Type 2 diabetes mellitus with diabetic chronic kidney disease, Adenoma of right adrenal g land, Renal mass, left Commonly known as: VITAMIN D-3 diphenhydrAMINE 25 mg capsule Refills: 0 Commonly known as: BENADRYL fish oil omega-3 fatty acids 1000 MG capsule Refills: 0 magnesium chloride 64 mg EC tablet QTY: 180 tablet Refills: 3 For diagnoses: Chronic kidney disease, stage III (moderate), Hypomagnesemia Commonly known as: MAG64 Take 2 tablets by mouth daily. simvastatin 20 MG tablet Refills: 0 For diagnoses: Chronic kidney disease, stage III (moderate), Essential hypertension, benig n, Hypomagnesemia, Adenoma of right adrenal gland Commonly known as: ZOCOR traMADol 50 MG tablet Refills: 0 Commonly known as: ULTRAM You might also be taking other medications not listed above. If you have questions about an y of your other medications, talk to the person who prescribed them or your Primary Care Pro vider. STOP taking these medications aspirin 325 MG tablet Replaced by: aspirin 81 MG EC tablet metFORMIN 1000 MG tablet Commonly known as: GLUCOPHAGE Where to Get Your Medications You can get these medications from any pharmacy Bring a paper prescription for each of these medications aspirin 81 MG EC tablet furosemide 20 MG tablet losartan 25 MG tablet metoprolol 25 MG tablet nitroGLYCERIN 0.4 MG SL tablet Activity: activity as tolerated Diet: cardiac diet Wound Care: not applicable There are no outpatient Patient Instructions on file for this admission. Tejas Clarke MD [address] [place] [address] [place] [address] In 1 week For wound re-check WITH DUSTIN Whaley, [place] [address] [place] [address] In 1 week Signed: JOCELYNE KING 11/21/2018 9:30 AM documented in this en counter Medications at Time of Discharge + + [...] + + documented as of this encounter Progress Notes Conversion Transaction, Provider Unknown - 11/21/2018 12:56 PM PSTFormatting of this note m ight be different from the original. Nurse Progress Note by Dany Jarquin RN at 11/21/18 859 Author: Dany Jarquin RN Service: (none) Author Type: Registered Nurse Filed: 11/21/18 1428 Date of Service: 11/21/181255 Status: Signed Intramural Director: Dany Jarquin RN (Registered Nurse) Pt given AVS discharge paperwork and it was reviewed with her and her friend. Prescriptions were sent with pt to take to pharmacy of her choice. Pt denied any questions. IV was remove d with catheter intact and bandage was applied. Insurance Sales Assistant came and took pt down to her frien d's car with her belongings in hand. Chart check complete. Dany Jarquin RN uTejas hathaway MD - 11/21/2018 7:42 AM PST Progress Notes by Tejas Clrake MD at 11/21/18 1323 Author: Tejas Clarke MD Service: Cardiology Author Type: Physician Filed: 11/21/18 1172 Date of Service: 11/21/18741 Status: Addendum Intramural Director: Tejas Clarke MD (Physician) Related Notes: Original Note by Valerie Escalera NP (Nurse Practitioner) filed at 11/21/18 57 I have interviewed and examined this patient independently on 11/21/2018. I agree with the f indings and plan of the Electrophysiology advanced practice provider documented in her progr ess note with further assessment and decision-making as noted hereafter. Updated Findings and Recommendations- Discharge instructions were reviewed in detail. Losartan added to help treat the hypertens ion and metoprolol was increased to 25 mg twice a day. Would send home on that regimen. We w ill see her in a week for wound check and in 6-8 weeks to reprogram the pacemaker. Normal pa cer function was seen on telemetry. EXAM General: well-developed, in no acute distress Neck: no JVD, bruits Lungs: clear to auscultation, no wheezes, rales, rhonchi Heart: regular rate and rhythm, normal S1/S2, no murmurs, gallops, rubs Abdomen: Bowel sounds present, soft, nontender/nondistended, no guarding/rebound Extremities: no clubbing, cyanosis, or edema Neuro: awake and alert Tejas Clarke MD [facility] PATIENT NAME: Felicitas Ayala : 1945: AGE: 73 y.o. ADMISSION DATE: 11/19/2018 Hospital Day # 1 Date of Service: 11/21/2018 Principal Hospital Problem: Third degree AV block (HCC) Code Status: Full Code PRIMARY CARE: Marilee Whaley [facility] FOLLOW UP Events since last note: Feels well this morning Anxious to go home. Feels significantly improved since pacemaker was implanted . The pacer site looks good. Her blood pressure is mildly elevated. Her saturations are 92% on room air while seated. Summary of EP Recommendations: Stop Amlodipine. Start Losartan 25mg nightly Increase Metoprolol to 25mg BID Return to EP in 1 week for a wound check 6 weeks for a device check Patient Active Problem List Diagnosis Date Noted Pacemaker 11/21/2018 11/21/2018 DDD SJM PPM implanted for symptomatic CHB 11/20/18 Devin Normal lead thresholds and battery status. Device was adjusted to optimize battery length w hile maintaining adequate safety margins. CXR shows good lead placement. Incision CDI with n o hematoma. Acute kidney injury superimposed on chronic kidney disease (HCC) 11/20/2018 CKD 3. Cr. 1.6 Bradycardia 11/20/2018 Drug toxicity 11/20/2018 Fluid overload 11/20/2018 Due to HEIKE 11/20/2018 Likely secondary to low cardiac output state due to bradycardia. IV furosemide ordered. SL Nitro and IV Morphine given. BiPAP ordered to reduce work of breathing. 11/21/2018 Volume status and shortness of breath improved s/p PPM and IV furosemide Third degree AV block (HCC) 11/19/2018 Complete heart block noted, HR 30s-40s, highly symptomatic with associated shortness of b reath. No reversible cause noted. The patient requires urgent pacemaker implantation. The go als, risks, benefits and alternatives to pacemaker implantation. Informed consent was obtain ed and left on the chart. LVEF 70%, no significant valvular abnormality. Labs WNL. Negative troponin 11/21/2018 S/p PPM 11/20/2018 Acute kidney injury (HCC) 11/19/2018 Anemia 11/19/2018 BMI 45.0-49.9, adult (HCC) 11/19/2018 Hypomagnesemia 07/27/2017 Normocytic anemia 05/04/2017 Chronic idiopathic gout of multiple sites 01/10/2016 Chronic kidney disease, stage III (moderate) 11/16/2015 Essential hypertension, benign 11/16/2015 11/20/2018 Mildly hypertensive since admission. Resume BB after PPM placed. 11/21/2018 Stop Amlodipine. Start Losartan 25mg nightly Increase Metoprolol to 25mg BID Type 2 diabetes mellitus with diabetic nephropathy (HCC) 11/16/2015 Adenoma of right adrenal gland 11/16/2015 Renal mass, left 11/16/2015 SCHEDULED MEDS: acetaminophen 650 mg Oral Q6H [place] allopurinol 200 mg Oral Daily aspirin 81 mg Oral Daily with breakfast atorvastatin 10 mg Oral Nightly enoxaparin 40 mg Subcutaneous Q24H famotidine 20 mg Oral Daily furosemide 40 mg Intravenous Daily insulin lispro (human) 0-3 Units Subcutaneous Nightly insulin lispro (human) 0-6 Units Subcutaneous TID AC losartan 25 mg Oral Daily metoprolol 25 mg Oral BID potassium chloride 20 mEq Oral Daily with breakfast sodium chloride (PF) 10 mL Intravenous Q8H IV INFUSIONS: dextrose Laboratory values which I reviewed 11/21/2018 are as follows: LABS: Recent Labs Lab 11/21/18 0539 11/20/18 0550 11/19/182042 WBC 6.56 7.53 7.60 RBC 3.81 3.57* 3.68* HGB 10.7* 10.1* 10.8* HCT 33.8* 32.1* 33.0* MCV 88.8 89.8 89.6 MCH 28.1 28.2 29.2 MCHC 31.7* 31.4* 32.6 RDW 47.7 49.0 49.4 PLT 312 291 293 MPV 8.1 8.5 8.5 DIFFTYPE AUTOMATED AUTOMATED AUTOMATED Recent Labs Lab 11/21/1839 11/20/18 0550 11/19/182042 WBC 6.56 7.53 7.60 HGB 10.7* 10.1* 10.8* HCT 33.8* 32.1* 33.0* NA 140 140 140 K 3.9 4.6 4.5 CL 105 107 109 CO2 24 20* 21* BUN 48* 60* 57* INR -- 1.0 1.0 CKTOTAL -- -- 116 CKMB -- -- 3.4 TROPONINI -- <0.020 <0.02 BNP -- -- 683* OBJECTIVE LATEST VITALS: BP 146/60 (BP Location: Right forearm) | Pulse 96 | Temp 98.3 F (36.8 C) (Oral) | Resp 18 | Ht 1.575 m (5' 2") | Wt 116.5 kg (256 lb 13.4 oz) | SpO2 92% | B reastfeeding? No | BMI 46.98 kg/m I/O s (this shift): No intake/output data recorded. REVIEW OF SYSTEMS A 10-point review of systems was performed and is negative except for the pertinent positiv es noted in the HPI. PHYSICAL EXAM: Admit Weight: Weight: 118.9 kg (262 lb 2 oz) Current weight: Weight: 116.5 kg (256 lb 13.4 oz) General Appearance: Alert, oriented, cooperative, no distress, appears stated age HEENT: Extraocular movements intact. Pupils round and reactive. No jaundice. NECK: No JVD, No lymphadenopathy. Trachea is at midline. CARDIAC: Normal S1 and S2 heart sounds. No murmurs, rubs, or gallops. Non-displaced, non-velasquez stained apical impulse. CHEST: Normal symmetrical chest excursion. Good bilateral air entry with no crackles or whe ezing. Dim bibasilar ABDOMEN: Non tender, non distended, bowel sounds present, no organomegaly. EXTREMITIES: 2+ pulses radial and pedal, symmetric. Trace edema NEURO: No focal deficits. SKIN: No bruises or rash. Warm and dry. Incision CDI with no oozing or hematoma Signed by: KALINA Torres onversion Transact ion, Provider Unknown - 11/21/2018 6:43 AM PSTFormatting of this note might be different fr om the original. Nurse Progress Note by Ida Harley RN at 11/21/18642 Author: Ida Harley RN Service: (none) Author Type: Registered Nurse Filed: 11/21/1844 Date of Service: 11/21/18642 Status: Signed Intramural Director: Ida Harley RN (Registered Nurse) A&Ox4, VSS, no acute changes from previous shift. Chart check complete. Ida mooney RN onver denisa Transaction, Provider Unknown - 11/20/2018 6:03 PM PST Progress Notes by Cristy Shea RN at 11/20/181802 Author: Cristy Shea RN Service: (none) Author Type: Registered Nurse Filed: 11/20/181803 Date of Service: 11/20/181802 Status: Signed Intramural Director: Cristy Shea RN (Registered Nurse) Patient transferred to room 4463. Report given to Davide CHAN. Tele notified. Belongings wit h patient. No complaints voiced at time of transfer. onver denisa Transaction, Provider Unknown - 11/20/2018 4:40 PM PST Progress Notes by Cristy Shea RN at 11/20/18 1640 Author: Cristy Shea RN Service: (none) Author Type: Registered Nurse Filed: 11/20/18 1641 Date of Service: 11/20/18 1640 Status: Signed Intramural Director: Cristy Shea RN (Registered Nurse) End of shift chart review complete onver denisa Transaction, Provider Unknown - 11/20/2018 1:30 PM PST Case Management by Kathia Olson RN at 11/20/18 1330 Author: Kathia Olson RN Service: (none) Author Type: Registered Nurse Filed: 11/20/18 1410 Date of Service: 11/20/18 1330 Status: Signed Intramural Director: Kathia lOson RN (Registered Nurse) 11/20/18 221 Discharge Planning Evaluation Admitting Diagnosis 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 Anticipated Discharge Plan Post Acute Care Needs None at this time Plan communicated to patient/family Yes Resources Financial concerns No Transportation issues No Patient/Family concerns No Prescription Plan Yes Name of Pharmacy [facility] in [place] Previous home health equipment Yes (walker) Anticipated Disposition Facility Type Home Met with pt and pt's spouse and discussed discharge planning, Pt is a 73 y.o., female who l mira in [place] with her . Pt is independent at baseline. Uses a 4WW for mobility . Denies use of DME, blood thinners, home O2, and dialysis. Pt drives and her can transport her home at discharge. Pt denies any needs or concerns at this time. Patient's PCP is: Marilee Whaley Patient's insurance: Medicare / [employer] Coverage concerns: no concerns Medication coverage/concerns: no concerns Rx Bedside Delivery: TBD Community resources utilized / needed: none at this time Assistance in transportation: spouse Identification of any specific education / training: none at this time Barriers to Discharge / Alternative housing needed: none at this time Anticipated DCP: Home Kathia Olson RN CM onver denisa Transaction, Provider Unknown - 11/20/2018 9:50 AM PST Progress Notes by Cristy Shea RN at 11/20/18949 Author: Cristy Shea RN Service: (none) Author Type: Registered Nurse Filed: 11/20/18 1002 Date of Service: 11/20/18949 Status: Signed Intramural Director: Cristy Shea RN (Registered Nurse) Patient transferred to garage laborer for PPM. onver denisa Transaction, Provider Unknown - 11/20/2018 3:19 AM PST Pharmacy Note by Loree Mcknight RPH at 11/20/18318 Author: Loree Mcknight RPH Service: Pharmacy Author Type: Pharmacist Filed: 11/20/18318 Date of Service: 11/20/18318 Status: Signed Intramural Director: Loree Mcknight RPH (Pharmacist) Clinical Pharmacy Note: Renal Monitoring Height: 157.5 cm Weight: 118.9 kg Serum creatinine: 1.8 mg/dL (H) 11/19/182042 Estimated creatinine clearance: 33.6 mL/min (A) Pharmacy dosing for renal function per Dr. Brewer. Will order the following dosage adjustments: Pepcid 20 mg IV/PO Q24H Pharmacy will continue to follow and adjust medications as needed. Jayant ELLER 11/20/2018 3:18 AM docume nted in this encounter Plan of Treatment +--------+ + + + + | Date | Type | Specialty | Care Team | Description | +--------+ + + + + | 12/15/ | Office | Nephrology | Jonathan Acosta MD | | | 2019 | Visit | | [address] [facility] | | | | | | [address] | | | | | | [address] | | | | | | | [...] | + +--------+ + + + | POC GLUCOSE | Routin | 11/21/2018 | | Results for this | | | e | 12:26 PM | | procedure are in the | | | | PST | | results section. | + +--------+ + + + | POC GLUCOSE | Routin | 11/21/2018 | | Results for this | | | e | 6:05 AM | | procedure are in the | | | | PST | | results section. | + +--------+ + + + | EXTERNAL LAB: CBC | Routin | 11/21/2018 | | Results for this | | | e | 5:39 AM | | procedure are in the | | | | PST | | results section. | + +--------+ + + + | PHOSPHORUS | Routin | 11/21/2018 | | Results for this | | | e | 5:39 AM | | procedure are in the | | | | PST | | results section. | + +--------+ + + + | MAGNESIUM | Routin | 11/21/2018 | | Results for this | | | e | 5:39 AM | | procedure are in the | | | | PST | | results section. | + +--------+ + + + | BASIC METABOLIC | Routin | 11/21/2018 | | Results for this | | PANEL | e | 5:39 AM | | procedure are in the | | | | PST | | results section. | + +--------+ + + + | POC GLUCOSE | Routin | 11/21/2018 | | Results for this | | | e | 5:10 AM | | procedure are in the | | | | PST | | results section. | + +--------+ + + + | POC GLUCOSE | Routin | 11/20/2018 | | Results for this | | | e | 9:23 PM | | procedure are in the | | | | PST | | results section. | + +--------+ + + + | XR CHEST 2 VIEWS | Routin | 11/20/2018 | | Results for this | | | e | 4:03 PM | | procedure are in the | | | | PST | | results section. | + +--------+ + + + | POC GLUCOSE | Routin | 11/20/2018 | | Results for this | | | e | 3:00 PM | | procedure are in the | | | | PST | | results section. | + +--------+ + + + | CV EP PROCEDURE | Routin | 11/20/2018 | | Results for this | | | e | 11:01 AM | | procedure are in the | | | | PST | | results section. | + +--------+ + + + | CV EP PROCEDURE | Routin | 11/20/2018 | | Results for this | | | e | 11:01 AM | | procedure are in the | | | | PST | | results section. | + +--------+ + + + | ECHO COMPLETE | Routin | 11/20/2018 | | Results for this | | | e | 7:04 AM | | procedure are in the | | | | PST | | results section. | + +--------+ + + + | EXTERNAL LAB: CBC | Routin | 11/20/2018 | | Results for this | | | e | 5:50 AM | | procedure are in the | | | | PST | | results section. | + +--------+ + + + | POC GLUCOSE | Routin | 11/20/2018 | | Results for this | | | e | 5:50 AM | | procedure are in the | | | | PST | | results section. | + +--------+ + + + | TROPONIN I | Routin | 11/20/2018 | | Results for this | | | e | 5:50 AM | | procedure are in the | | | | PST | | results section. | + +--------+ + + + | PTT | Routin | 11/20/2018 | | Results for this | | | e | 5:50 AM | | procedure are in the | | | | PST | | results section. | + +--------+ + + + | PROTIME INR | Routin | 11/20/2018 | | Results for this | | | e | 5:50 AM | | procedure are in the | | | | PST | | results section. | + +--------+ + + + | PHOSPHORUS | Routin | 11/20/2018 | | Results for this | | | e | 5:50 AM | | procedure are in the | | | | PST | | results section. | + +--------+ + + + | MAGNESIUM | Routin | 11/20/2018 | | Results for this | | | e | 5:50 AM | | procedure are in the | | | | PST | | results section. | + +--------+ + + + | BASIC METABOLIC | Routin | 11/20/2018 | | Results for this | | PANEL | e | 5:50 AM | | procedure are in the | | | | PST | | results section. | + +--------+ + + + | MRSA NAAT | Routin | 11/20/2018 | | Results for this | | | e | 3:59 AM | | procedure are in the | | | | PST | | results section. | + +--------+ + + + | POC GLUCOSE | Routin | 11/20/2018 | | Results for this | | | e | 1:16 AM | | procedure are in the | | | | PST | | results section. | + +--------+ + + + | HISTORICAL LAB PANEL | Routin | 11/19/2018 | | Results for this | | RESULT | e | 8:43 PM | | procedure are in the | | | | PST | | results section. | + +--------+ + + + | TROPONIN I | Routin | 11/19/2018 | | Results for this | | | e | 8:43 PM | | procedure are in the | | | | PST | | results section. | + +--------+ + + + | TSH | Routin | 11/19/2018 | | Results for this | | | e | 8:43 PM | | procedure are in the | | | | PST | | results section. | + +--------+ + + + | T4, FREE | Routin | 11/19/2018 | | Results for this | | | e | 8:43 PM | | procedure are in the | | | | PST | | results section. | + +--------+ + + + | PHOSPHORUS | Routin | 11/19/2018 | | Results for this | | | e | 8:43 PM | | procedure are in the | | | | PST | | results section. | + +--------+ + + + | B TYPE NATRIURETIC | Routin | 11/19/2018 | | Results for this | | PEPTIDE | e | 8:43 PM | | procedure are in the | | | | PST | | results section. | + +--------+ + + + | MAGNESIUM | Routin | 11/19/2018 | | Results for this | | | e | 8:43 PM | | procedure are in the | | | | PST | | results section. | + +--------+ + + + | XR CHEST 1 VIEW | Routin | 11/19/2018 | | Results for this | | | e | 6:11 PM | | procedure are in the | | | | PST | | results section. | + +--------+ + + + documented in this encounter Results POC Glucose (11/21/2018 12:26 PM PST) + + + + + + | Component | Value | Ref Range | Performed | Pathologist | | | | | At | Signature | + + + + + + | Glucose, | 124 (H)Comment: Testing | 65 - 99 mg/dL | EXTERNAL | | | Fingerstick | performed at [facility];[address] | | LAB | | | | [address];[place] | | | | | | [address] | | | | + + + + + + + + | Specimen | + + | | + + + +---------+ + + | Performing | Address | City/State/Zipcode | Phone Number | | Organization | | | | + +---------+ + + | EXTERNAL LAB | | | | + +---------+ + + POC Glucose (11/21/2018 6:05 AM PST) + + + + + + | Component | Value | Ref Range | Performed | Pathologist | | | | | At | Signature | + + + + + + | Glucose, | 161 (H)Comment: Testing | 65 - 99 mg/dL | EXTERNAL | | | Fingerstick | performed at [facility];[address] | | LAB | | | | [address];[place] | | | | | | [address] | | | | + + + + + + + + | Specimen | + + | | + + + +---------+ + + | Performing | Address | City/State/Zipcode | Phone Number | | Organization | | | | + +---------+ + + | EXTERNAL LAB | | | | + +---------+ + + External Lab: CBC (11/21/2018 5:39 AM PST) + + + + + + | Component | Value | Ref Range | Performed | Pathologist | | | | | At | Signature | + + + + + + | WBC | 6.56 | 3.80 - 11.00 | EXTERNAL | | | | | K/uL | LAB | | + + + + + + | RED CELL | 3.81 | 3.70 - 5.10 | EXTERNAL | | | COUNT | | M/uL | LAB | | + + + + + + | Hgb | 10.7 (L) | 11.3 - 15.5 | EXTERNAL | | | | | g/dL | LAB | | + + + + + + | Hematocrit, | 33.8 (L) | 34.0 - 46.0 % | EXTERNAL | | | POC | | | LAB | | + + + + + + | MCV | 88.8 | 80.0 - 100.0 fl | EXTERNAL | | | | | | LAB | | + + + + + + | MCH | 28.1 | 27.0 - 34.0 pg | EXTERNAL | | | | | | LAB | | + + + + + + | MCHC | 31.7 (L) | 32.0 - 35.5 | EXTERNAL | | | | | g/dL | LAB | | + + + + + + | RDW-CV | 47.7 | 37 - 53 fl | EXTERNAL | | | | | | LAB | | + + + + + + | Platelet | 312 | 150 - 400 K/uL | EXTERNAL | | | Count | | | LAB | | | Plasma | | | | | + + + + + + | MPV | 8.1 | fl | EXTERNAL | | | | | | LAB | | + + + + + + | Differentia | AUTOMATED | | EXTERNAL | | | l Type | | | LAB | | + + + + + + | % Segmented | 76.59 | % | EXTERNAL | | | | | | LAB | | | Neutrophils | | | | | + + + + + + | % | 12.39 | % | EXTERNAL | | | Lymphocytes | | | LAB | | + + + + + + | % Monocytes | 7.13 | % | EXTERNAL | | | | | | LAB | | + + + + + + | % | 3.53 | % | EXTERNAL | | | Eosinophils | | | LAB | | + + + + + + | % Basophils | 0.36 | % | EXTERNAL | | | | | | LAB | | + + + + + + | Absolute | 5.02 | 1.90 - 7.40 | EXTERNAL | | | Segmented | | K/uL | LAB | | | Neutrophils | | | | | + + + + + + | Absolute | 0.81 (L) | 1.00 - 3.90 | EXTERNAL | | | Lymphocytes | | K/uL | LAB | | + + + + + + | Absolute | 0.47 | 0.00 - 0.80 | EXTERNAL | | | Monocytes | | K/uL | LAB | | + + + + + + | Absolute | 0.23 | 0.00 - 0.50 | EXTERNAL | | | Eosinophils | | K/uL | LAB | | + + + + + + | Absolute | 0.02Comment: Testing | 0.00 - 0.10 | EXTERNAL | | | Basophils | performed at [facility], [address] | [address]L | LAB | | | | [address], | | | | | | [place] [address] | | | | + + + + + + + + | Specimen | + + | Blood specimen | | (specimen) | + + + +---------+ + + | Performing | Address | City/State/Zipcode | Phone Number | | Organization | | | | + +---------+ + + | EXTERNAL LAB | | | | + +---------+ + + Phosphorus (11/21/2018 5:39 AM PST) + + + + + + | Component | Value | Ref Range | Performed | Pathologist | | | | | At | Signature | + + + + + + | PHOSPHORUS | 3.9Comment: Testing | 2.3 - 4.8 mg/dL | EXTERNAL | | | | performed at [facility], [address] | | LAB | | | | [address], | | | | | | [place] [address] | | | | + + + + + + + + | Specimen | + + | Blood specimen | | (specimen) | + + + +---------+ + + | Performing | Address | City/State/Zipcode | Phone Number | | Organization | | | | + +---------+ + + | EXTERNAL LAB | | | | + +---------+ + + Magnesium (11/21/2018 5:39 AM PST) + + + + + + | Component | Value | Ref Range | Performed | Pathologist | | | | | At | Signature | + + + + + + | Magnesium | 2.0Comment: Testing | 1.7 - 2.4 mg/dL | EXTERNAL | | | | performed at [facility], [address] | | LAB | | | | [address], | | | | | | [place] [address] | | | | + + + [...] + +---------+ + + Basic Metabolic Panel (11/21/2018 5:39 AM PST) + + + + + + | Component | Value | Ref Range | Performed | Pathologist | | | | | At | Signature | + + + + + + | Na | 140 | 135 - 145 | EXTERNAL | | | | | mmol/L | LAB | | + + + + + + | K | 3.9 | 3.5 - 4.9 | EXTERNAL | | | | | mmol/L | LAB | | + + + + + + | Cl | 105 | 99 - 109 mmol/L | EXTERNAL | | | | | | LAB | | + + + + + + | CO2 | 24 | 23 - 32 mmol/L | EXTERNAL | | | | | | LAB | | + + + + + + | Anion Gap | 15 | 5 - 20 mmol/L | EXTERNAL | | | | | | LAB | | + + + + + + | Glucose, | 163 (H) | 65 - 99 mg/dL | EXTERNAL | | | Fasting | | | LAB | | + + + + + + | BUN | 48 (H) | 8 - 25 mg/dL | EXTERNAL | | | | | | LAB | | + + + + + + | Creatinine | 1.3 (H) | 0.50 - 1.00 | EXTERNAL | | | | | mg/dL | LAB | | + + + + + + | BUN/Creatin | 37 | | EXTERNAL | | | ine Ratio | | | LAB | | + + + + + + | Calcium | 8.8 | 8.5 - 10.5 | EXTERNAL | | | | | mg/dL | LAB | | + + + + + + | Estimated | 40 (L)Comment: GFR <60: | mL/min/1.73m2 | EXTERNAL | | | GFR | CHRONIC KIDNEY DISEASE, | | LAB | | | | IF FOUND OVER A 3 MONTH | | | | | | PERIOD.GFR <15: KIDNEY | | | | | | FAILURE.FOR | | | | | | AMERICANS, MULTIPLY THE | | | | | | CALCULATED GFR BY | | | | | | 1.210.This eGFR is | | | | | | calculated using the | | | | | | MDRD IDMS traceable | | | | | | equation.Testing | | | | | | performed at [facility], [address] | | | | | | [facility], | | | | | | [place] [address] | | | | + + + + + + + + | Specimen | + + | Blood specimen | | (specimen) | + + + +---------+ + + | Performing | Address | City/State/Zipcode | Phone Number | | Organization | | | | + +---------+ + + | EXTERNAL LAB | | | | + +---------+ + + POC Glucose (11/21/2018 5:10 AM PST) + + + + + + | Component | Value | Ref Range | Performed | Pathologist | | | | | At | Signature | + + + + + + | Glucose, | 173 (H)Comment: Testing | 65 - 99 mg/dL | EXTERNAL | | | Fingerstick | performed at [facility];[address] | | LAB | | | | [address];[place] | | | | | | [address] | | | | + + + + + + + + | Specimen | + + | | + + + +---------+ + + | Performing | Address | City/State/Zipcode | Phone Number | | Organization | | | | + +---------+ + + | EXTERNAL LAB | | | | + +---------+ + + POC Glucose (11/20/2018 9:23 PM PST) + + + + + + | Component | Value | Ref Range | Performed | Pathologist | | | | | At | Signature | + + + + + + | Glucose, | 130 (H)Comment: Testing | 65 - 99 mg/dL | EXTERNAL | | | Fingerstick | performed at [facility];[address] | | LAB | | | | [address];[place] | | | | | | [address] | | | | + + + + + + + + | Specimen | + + | | + + + +---------+ + + | Performing | Address | City/State/Zipcode | Phone Number | | Organization | | | | + +---------+ + + | EXTERNAL LAB | | | | + +---------+ + + XR Chest 2 Vws (11/20/2018 4:03 PM PST) + + | Specimen | + + | | + + + + + | Impressions | Performed At | + + + | Bilateral pulmonary vascular congestion. Left pacemaker with | | | intact leads. Signed by: Arnol Maldonado Sign Date/Time: 11/20/2018 | | | 4:09 PM | | + + + + + + | Narrative | Performed At | + + + | CHEST TWO VIEWS CLINICAL INFORMATION: Device placement. | | | COMPARISON: XR CHEST 1 VIEW (11/19/2018); CHEST ONE VIEW (11/19/2018); | | | FINDINGS: Left pacemaker with intact leads. Bilateral pulmonary | | | vascular congestion. No pneumothorax, no pleural effusion. Heart | | | size and mediastinal contours are normal. No acute osseous | | | abnormality. | | + + + + + | Procedure Note | + + | Jairo, Rad Conversion - 06/10/2019 11:36 PM PDT CHEST TWO VIEWS | | CLINICAL INFORMATION: | | Device placement. | | COMPARISON: | | XR CHEST 1 VIEW (11/19/2018); CHEST ONE VIEW (11/19/2018); | | FINDINGS: | | Left pacemaker with intact leads. | | Bilateral pulmonary vascular congestion. | | No pneumothorax, no pleural effusion. | | Heart size and mediastinal contours are normal. | | No acute osseous abnormality. | | IMPRESSION: | | Bilateral pulmonary vascular congestion. Left pacemaker with intact | | leads. | | Signed by: Arnol Maldonado | | Sign Date/Time: 11/20/2018 4:09 PM | + + POC Glucose (11/20/2018 3:00 PM PST) + + + + + + | Component | Value | Ref Range | Performed | Pathologist | | | | | At | Signature | + + + + + + | Glucose, | 136 (H)Comment: Testing | 65 - 99 mg/dL | EXTERNAL | | | Fingerstick | performed at [facility];[address] | | LAB | | | | [address] [facility];[place] | | | | | | [address] | | | | + + + + + + + + | Specimen | + + | | + + + +---------+ + + | Performing | Address | City/State/Zipcode | Phone Number | | Organization | | | | + +---------+ + + | EXTERNAL LAB | | | | + +---------+ + + CV EP PROCEDURE (11/20/2018 11:01 AM PST) + + | Specimen | + + | | + + + + + | Impressions | Performed At | + + + | FINAL IMPRESSION: Successful temporary right ventricular | | | pacemaker. RECOMMENDATIONS: Proceed with preparations for a | | | permanent pacemaker. Read by TEJAS CLARKE MD 11/20/2018 10:14 A | | | | | + + + + + + | Narrative | Performed At | + + + | | | | | | | Temporary right ventricular pacemaker. HISTORY: This 73-year-old | | | female was referred for an urgent permanent pacemaker because of | | | complete heart block associated with symptoms of heart failure. She | | | has chronic diabetes mellitus, hypertension, and chronic kidney | | | disease. She is obese and was in heart failure today. A temporary | | | pacemaker was recommended prior to the permanent because of complete | | | heart block to make sure that it was safe to proceed with the | | | permanent pacemaker. PROCEDURE: The patient was brought to the | | | electrophysiology laboratory in the postabsorptive, nonsedated state. | | | She had been given a little bit of morphine up in the ICU and a | | | little bit of sedation by our anesthesiologist here. The right | | | groin was prepped and draped in the usual sterile fashion and locally | | | anesthetized with 1 percent xylocaine. A 6-Sudanese sheath was | | | placed into the right femoral vein and through that, a 6-Sudanese | | | quadripolar pacing catheter was advanced into the apex of the right | | | ventricle with a good capture threshold. The pacemaker was | | | programmed at VVI pacing mode at 80 beats per minutes, with an ma of | | | 10. A Tegaderm dressing was placed over the device. She tolerated | | | the procedure well. There were no complications. | | + + + + + | Procedure Note | + + | Ruiz Gill Conversion - 06/18/2019 4:10 PM PDT | | | | Temporary right ventricular pacemaker. | | | | HISTORY: This 73-year-old female was referred for an urgent permanent | | pacemaker because of complete heart block associated with symptoms of heart | | failure. She has chronic diabetes mellitus, hypertension, and chronic | | kidney disease. She is obese and was in heart failure today. A temporary | | pacemaker was recommended prior to the permanent because of complete heart | | block to make sure that it was safe to proceed with the permanent | | pacemaker. | | | | PROCEDURE: The patient was brought to the electrophysiology laboratory in | | the postabsorptive, nonsedated state. She had been given a little bit of | | morphine up in the ICU and a little bit of sedation by our anesthesiologist | | here. The right groin was prepped and draped in the usual sterile fashion | | and locally anesthetized with 1 percent xylocaine. A 6-Sudanese sheath was | | placed into the right femoral vein and through that, a 6-Sudanese quadripolar | | pacing catheter was advanced into the apex of the right ventricle with a | | good capture threshold. The pacemaker was programmed at VVI pacing mode at | | 80 beats per minutes, with an ma of 10. A Tegaderm dressing was | | placed over the device. She tolerated the procedure well. There were no | | complications. | | | | IMPRESSION: | | FINAL IMPRESSION: Successful temporary right ventricular pacemaker. | | | | RECOMMENDATIONS: Proceed with preparations for a permanent pacemaker. | | | | Read by TEJAS CLARKE MD 11/20/2018 10:14 A | | | | | + + CV EP PROCEDURE (11/20/2018 11:01 AM PST) + + | Specimen | + + | | + + + + + | Impressions | Performed At | + + + | FINAL IMPRESSION: Good pacing and sensing thresholds. | | | Appropriate device function seen. RECOMMENDATIONS: Continue | | | current therapy. Her beta-lai will be resumed given her | | | hypertension and diabetes. Hopefully, she can be sent home | | | tomorrow, if all goes well. Read by TEJAS CLARKE MD 11/20/2018 | | | 11:05 A | | | PM | | + + + + + + | Narrative | Performed At | + + + | | | | | | | PROCEDURE: Permanent dual-chamber pacemaker. HISTORY: This | | | 73-year-old female was referred for a dual-chamber permanent | | | pacemaker because of symptomatic complete heart block associated with | | | acute diastolic heart failure. She has a history of diabetes | | | mellitus, hypertension, and chronic kidney disease. She has had | | | 7-10 days of progressive shortness of breath and some edema. | | | Symptomatic bradycardia with heart rates of 40 beats per minute. | | | DESCRIPTION OF PROCEDURE: The patient was brought to the | | | electrophysiology laboratory in the postabsorptive, nonsedated state. | | | Sedation had been given with a little bit of morphine prior to her | | | arrival and our anesthesiologist kept her controlled well during the | | | procedure. A temporary pacemaker was initially placed into the | | | right ventricle. Afterwards, the chest was prepped and draped in the | | | usual sterile fashion and locally anesthetized with 1% Xylocaine. | | | The left subclavian vein was accessed twice and 2 guidewires were | | | placed into the vessel. A pacemaker pocket was fashioned using | | | sharp and blunt dissection and electrocautery in the usual manner. | | | A 6-Sudanese introducer was placed into the subclavian vein; and | | | through that, a [employer]. Dae model 2088TC-58 cm, serial number [id number] | | | lead was placed into the apex of the right ventricle towards the | | | septum and screwed into position. The final pacing threshold was | | | 0.75 volts at 0.4 milliseconds and R waves were not achieved since | | | she was in heart block and being paced by the temporary pacemaker. | | | The lead impedance was 540 ohms. The lead was anchored with two | | | #1 Ethibond sutures. Another 6-Sudanese sheath was placed into the | | | subclavian vein; and through that, a [employer]. Dae model 2088TC-52 cm, | | | serial number [id number] lead was placed into the high right atrium | | | and screwed into position. The final pacing threshold was 0.75 | | | volts at 0.4 milliseconds and P-waves were 4.3 karan volts with an | | | impedance of 490 ohms. The lead was anchored with two #1 Ethibond | | | sutures. The leads were attached to a [employer] Dae [employer]urity | | | MRI-compatible, model 2272, serial number [id number] pacemaker. That | | | device was placed into the pocket and anchored with a #1 Ethibond | | | suture. The pocket was closed with 4 layers, using 2-0 Vicryl for | | | the deep 2 layers, 3-0 Vicryl for the next layer, and 4-0 Monocryl | | | for the superficial layer. A Dermabond dressing was applied. There | | | were no apparent complications. The temporary pacemaker was removed | | | from the right femoral root and the sheath was also removed. | | | Hemostasis was obtained using local digital pressure. FINAL | | | SETTINGS FOR THE PACEMAKER: Mode for pacing DDD with a lower rate of | | | 60 and an upper rate of 125 beats per minute. The paced AV delay | | | will be 180 milliseconds and sensed AV delay 160 milliseconds. | | | Pacing and sensing will be bipolar in both chambers. The output | | | will be 5 volts at 0.6 milliseconds in the ventricle and 3.5 volts at | | | 0.6 milliseconds in the atrium. | | + + + + + | Procedure Note | + + | JairoRuiz Conversion - 06/18/2019 4:10 PM PDT | | | | PROCEDURE: Permanent dual-chamber pacemaker. | | | | HISTORY: This 73-year-old female was referred for a dual-chamber permanent | | pacemaker because of symptomatic complete heart block associated with acute | | diastolic heart failure. She has a history of diabetes mellitus, | | hypertension, and chronic kidney disease. She has had 7-10 days of | | progressive shortness of breath and some edema. Symptomatic bradycardia | | with heart rates of 40 beats per minute. | | | | DESCRIPTION OF PROCEDURE: The patient was brought to the electrophysiology | | laboratory in the postabsorptive, nonsedated state. Sedation had been | | given with a little bit of morphine prior to her arrival and our | | anesthesiologist kept her controlled well during the procedure. A | | temporary pacemaker was initially placed into the right ventricle. | | Afterwards, the chest was prepped and draped in the usual sterile fashion | | and locally anesthetized with 1% Xylocaine. The left subclavian vein was | | accessed twice and 2 guidewires were placed into the vessel. A pacemaker | | pocket was fashioned using sharp and blunt dissection and electrocautery in | | the usual manner. A 6-Sudanese introducer was placed into the subclavian | | vein; and through that, a [employer]. Dae model 2088TC-58 cm, serial number | | [id number] lead was placed into the apex of the right ventricle towards the | | septum and screwed into position. The final pacing threshold was 0.75 | | volts at 0.4 milliseconds and R waves were not achieved since she was in | | heart block and being paced by the temporary pacemaker. The lead impedance | | was 540 ohms. The lead was anchored with two #1 Ethibond sutures. | | | | Another 6-Sudanese sheath was placed into the subclavian vein; and through | | that, a [employer] Dae model 2088TC-52 cm, serial number [id number] lead was | | placed into the high right atrium and screwed into position. The final | | pacing threshold was 0.75 volts at 0.4 milliseconds and P-waves were 4.3 | | karan volts with an impedance of 490 ohms. The lead was anchored with two | | #1 Ethibond sutures. | | | | The leads were attached to a [employer] Dae Assurity MRI-compatible, model 2272, | | serial number [id number] pacemaker. That device was placed into the pocket | | and anchored with a #1 Ethibond suture. The pocket was closed with 4 | | layers, using 2-0 Vicryl for the deep 2 layers, 3-0 Vicryl for the next | | layer, and 4-0 Monocryl for the superficial layer. A Dermabond dressing was | | applied. There were no apparent complications. The temporary pacemaker was | | removed from the right femoral root and the sheath was also removed. | | Hemostasis was obtained using local digital pressure. | | | | FINAL SETTINGS FOR THE PACEMAKER: Mode for pacing DDD with a lower rate of | | 60 and an upper rate of 125 beats per minute. The paced AV delay will be | | 180 milliseconds and sensed AV delay 160 milliseconds. Pacing and sensing | | will be bipolar in both chambers. The output will be 5 volts at 0.6 | | milliseconds in the ventricle and 3.5 volts at 0.6 milliseconds in the | | atrium. | | | | IMPRESSION: | | FINAL IMPRESSION: Good pacing and sensing thresholds. Appropriate device | | function seen. | | | | RECOMMENDATIONS: Continue current therapy. Her beta-lai will be | | resumed given her hypertension and diabetes. Hopefully, she can be sent | | home tomorrow, if all goes well. | | | | | | Read by TEJAS CLARKE MD 11/20/2018 11:05 A | | | | | + + ECHO Complete (11/20/2018 7:04 AM PST) + + | Specimen | + + | | + + + + + | Impressions | Performed At | + + + | 1. This was a technically difficult study with suboptimal views. 2. | | | Left ventricular systolic function is hyperdynamic with an estimated | | | EF of >70%. | | + + + + + + | Narrative | Performed At | + + + | Patient Name: FELICITAS AYALA Date of : 1945 | | | Performing Physician: Hubert Lenz | | | | | | INDICATIONS complete heart block CONCLUSIONS | | | 1. This was a technically difficult study with suboptimal | | | views. 2. Left ventricular systolic function is hyperdynamic with an | | | estimated EF of >70%. FINDINGS -------- ECG rhythm: Sinus with | | | complete heart block. Study: A 2-dimensional transthoracic | | | echocardiogram with m-mode, spectral and color flow Doppler was | | | perfomed. Study: This was a technically difficult study with | | | suboptimal views. Left Ventricle: Left ventricular systolic function | | | is hyperdynamic with an estimated EF of >70%. Left Ventricle: There | | | is mild concentric left ventricular hypertrophy. Left Ventricle: Poor | | | endocardial border definition prevents accurate regional wall motion | | | abnormality identification. Right Ventricle: The RV was not well | | | visualized. Left Atrium: The left atrium was not well visualized. | | | Left Atrium: The left atrium is mildly dilated. Right Atrium: The | | | right atrium was not well visualized. Aortic Valve: The aortic valve | | | was not well visualized, appears trileaflet in limited views. Aortic | | | Valve: There is no evidence of aortic regurgitation. Aortic Valve: | | | There is no evidence of aortic stenosis. Mitral Valve: The mitral | | | valve was not well visualized. Mitral Valve: No mitral regurgitation. | | | Tricuspid Valve: The tricuspid valve was not well visualized. | | | Tricuspid Valve: No regurgitation noted Tricuspid Valve: The poor TR | | | signal prevents accurate estimation of pulmonary pressures. Pulmonic | | | Valve: The pulmonic valve was not well visualized. Pericardium: There | | | is no pericardial effusion. IVC/Hepatic Veins: The IVC was not well | | | visualized. MEASUREMENTS Ao asc: 3.43 cm Ao | | | sinus: 3.94 cm IVC: 2.66 cm EDV(Teich): 73.76 ml IVSd: | | | 1.07 cm LVIDd: 4.08 cm LVPWd: 1.27 cm LVOT Diam: 2.10 cm | | | %FS: 40.04 % EF(Teich): 71.17 % ESV(Teich): 21.26 ml IVSs: | | | 1.50 cm LVIDs: 2.45 cm LVPWs: 1.50 cm SV(Teich): 52.50 | | | ml LAESV(A-L): 76.53 ml LAESV Index (A-L): 35.76 ml/m2 LAAs | | | A2C: 22.33 cm2 LAESV A-L A2C: 76.80 ml LALs A2C: 5.51 cm | | | LAAs A4C: 22.25 cm2 LAESV A-L A4C: 64.48 ml LALs A4C: 6.51 | | | cm HR: 39.73 BPM AV maxP.44 mmHg AV meanP.35 mmHg | | | AV Vmax: 2.20 m/s AV Vmean: 1.46 m/s AV VTI: 44.80 cm | | | LIANG Vmax: 2.51 cm2 LIANG (VTI): 2.68 cm2 AVAI Vmax: 0.00 | | | cm2/m2 AVAI (VTI): 0.00 cm2/m2 LVCI Dopp: 2.21 l/minm2 LVCO | | | Dopp: 4.74 l/min HR: 39.51 BPM LVOT maxP.15 mmHg LVOT | | | meanP.45 mmHg LVSI Dopp: 56.12 ml/m2 LVSV Dopp: 120.10 | | | ml LVOT Vmax: 1.59 m/s LVOT Vmean: 1.10 m/s LVOT VTI: | | | 34.50 cm MV A Dino: 1.48 m/s MV DecT: 328.00 ms MV E Dino: | | | 1.24 m/s MV E/A Ratio: 0.83 Septal e': 0.09 m/s Septal E/e': | | | 13.30 HR: 39.28 BPM PV maxP.70 mmHg PV meanP.50 | | | mmHg PV Vmax: 1.29 m/s PV Vmean: 0.89 m/s PV VTI: 24.78 | | | cm Tire Setter: MW Authenticated by: Hubert Lenz Report | | | Date/Time: 11-20-2018 8:24:22 | | + + + + + | Procedure Note | + + | Jairo, Rad Conversion - 06/10/2019 11:36 PM PDT Patient Name: Rogelio AYALA of | | : 1945 Performing Physician: Hubert | | Yoanna INDICATIONS----- | | ------complete heart block CONCLUSIONS 1. This was a technically difficult | | study with suboptimal views.2. Left ventricular systolic function is hyperdynamic with | | an estimated EF of >70%. FINDINGS--------ECG rhythm: Sinus with complete heart | | block.Study: A 2-dimensional transthoracic echocardiogram with m-mode, spectral and | | color flow Doppler was perfomed.Study: This was a technically difficult study with | | suboptimal views.Left Ventricle: Left ventricular systolic function is hyperdynamic with | | an estimated EF of >70%.Left Ventricle: There is mild concentric left ventricular | | hypertrophy.Left Ventricle: Poor endocardial border definition prevents accurate | | regional wall motion abnormality identification.Right Ventricle: The RV was not well | | visualized.Left Atrium: The left atrium was not well visualized.Left Atrium: The left | | atrium is mildly dilated.Right Atrium: The right atrium was not well visualized.Aortic | | Valve: The aortic valve was not well visualized, appears trileaflet in limited | | views.Aortic Valve: There is no evidence of aortic regurgitation.Aortic Valve: There is | | no evidence of aortic stenosis.Mitral Valve: The mitral valve was not well | | visualized.Mitral Valve: No mitral regurgitation.Tricuspid Valve: The tricuspid valve | | was not well visualized.Tricuspid Valve: No regurgitation notedTricuspid Valve: The poor | | TR signal prevents accurate estimation of pulmonary pressures.Pulmonic Valve: The | | pulmonic valve was not well visualized.Pericardium: There is no pericardial | | effusion.IVC/Hepatic Veins: The IVC was not well visualized. MEASUREMENTS Ao | | asc: 3.43 cmAo sinus: 3.94 cmIVC: 2.66 cmEDV(Teich): 73.76 mlIVSd: 1.07 | | cmLVIDd: 4.08 cmLVPWd: 1.27 cmLVOT Diam: 2.10 cm%FS: 40.04 %EF(Teich): 71.17 | | %ESV(Teich): 21.26 mlIVSs: 1.50 cmLVIDs: 2.45 cmLVPWs: 1.50 cmSV(Teich): 52.50 | | mlLAESV(A-L): 76.53 mlLAESV Index (A-L): 35.76 ml/m2LAAs A2C: 22.33 [id number] A-L | | A2C: 76.80 mlLALs A2C: 5.51 cmLAAs A4C: 22.25 [id number] A-L A4C: 64.48 mlLALs | | A4C: 6.51 cmHR: 39.73 BPMAV maxP.44 mmHgAV meanP.35 mmHgAV Vmax: 2.20 | | m/Christian Vmean: 1.46 m/Christian VTI: 44.80 cmAVA Vmax: 2.51 cm2AVA (VTI): 2.68 [id number] | | Vmax: 0.00 cm2/m2AVAI (VTI): 0.00 cm2/m2LVCI Dopp: 2.21 l/[id number] Dopp: 4.74 | | l/minHR: 39.51 BPMLVOT maxP.15 mmHgLVOT meanP.45 mmHgLVSI Dopp: 56.12 | | ml/m2LVSV Dopp: 120.10 mlLVOT Vmax: 1.59 m/sLVOT Vmean: 1.10 m/sLVOT VTI: 34.50 | | cmMV A Dino: 1.48 m/sMV DecT: 328.00 msMV E Dino: 1.24 m/sMV E/A Ratio: 0.83Septal | | e': 0.09 m/sSeptal E/e': 13.30HR: 39.28 BPMPV maxP.70 mmHgPV meanP.50 | | mmHgPV Vmax: 1.29 m/sPV Vmean: 0.89 m/sPV VTI: 24.78 cm Tire Setter: | | MWAuthenticated by: Hubert Ring Date/Time: 11-20-2018 8:24:22 IMPRESSION: 1. | | This was a technically difficult study with suboptimal views.2. Left ventricular | | systolic function is hyperdynamic with an estimated EF of >70%. | |Pericardium: There is no pericardial effusion. | |IVC/Hepatic Veins: The IVC was not well visualized. | | | |MEASUREMENTS | | | |Ao asc: 3.43 cm | |Ao sinus: 3.94 cm | |IVC: 2.66 cm | |EDV(Teich): 73.76 ml | |IVSd: 1.07 cm | |LVIDd: 4.08 cm | |LVPWd: 1.27 cm | |LVOT Diam: 2.10 cm | |%FS: 40.04 % | |EF(Teich): 71.17 % | |ESV(Teich): 21.26 ml | |IVSs: 1.50 cm | |LVIDs: 2.45 cm | |LVPWs: 1.50 cm | |SV(Teich): 52.50 ml | |LAESV(A-L): 76.53 ml | |LAESV Index (A-L): 35.76 ml/m2 | |LAAs A2C: 22.33 cm2 | |LAESV A-L A2C: 76.80 ml | |LALs A2C: 5.51 cm | |LAAs A4C: 22.25 cm2 | |LAESV A-L A4C: 64.48 ml | |LALs A4C: 6.51 cm | |HR: 39.73 BPM | |AV maxP.44 mmHg | |AV meanP.35 mmHg | |AV Vmax: 2.20 m/s | |AV Vmean: 1.46 m/s | |AV VTI: 44.80 cm | |LIANG Vmax: 2.51 cm2 | |LIANG (VTI): 2.68 cm2 | |AVAI Vmax: 0.00 cm2/m2 | |AVAI (VTI): 0.00 cm2/m2 | |LVCI Dopp: 2.21 l/minm2 | |LVCO Dopp: 4.74 l/min | |HR: 39.51 BPM | |LVOT maxP.15 mmHg | |LVOT meanP.45 mmHg | |LVSI Dopp: 56.12 ml/m2 | |LVSV Dopp: 120.10 ml | |LVOT Vmax: 1.59 m/s | |LVOT Vmean: 1.10 m/s | |LVOT VTI: 34.50 cm | |MV A Dino: 1.48 m/s | |MV DecT: 328.00 ms | |MV E Dino: 1.24 m/s | |MV E/A Ratio: 0.83 | |Septal e': 0.09 m/s | |Septal E/e': 13.30 | |HR: 39.28 BPM | |PV maxP.70 mmHg | |PV meanP.50 mmHg | |PV Vmax: 1.29 m/s | |PV Vmean: 0.89 m/s | |PV VTI: 24.78 cm | | | |Tire Setter: MW | |Authenticated by: Hubert Lenz | |Report Date/Time: 11-20-2018 8:24:22 | | | |IMPRESSION: | |1. This was a technically difficult study with suboptimal views. | |2. Left ventricular systolic function is hyperdynamic with an estimated EF of >70%. | + + Troponin I (11/20/2018 5:50 AM PST) + + + + + + | Component | Value | Ref Range | Performed | Pathologist | | | | | At | Signature | + + + + + + | Troponin I, | <0.020Comment: 0.00 to | 0.00 - 0.10 | EXTERNAL | | | Qual | 0.10 CONSISTENT WITH | ng/mL | LAB | | | | NORMAL POPULATION0.11 | | | | | | to 0.60 CONSISTENT | | | | | | WITH INCREASED RISK FOR | | | | | | ADVERSE OUTCOMES> 0.60 | | | | | | CONSISTENT | | | | | | WITH WHO CRITERIA FOR | | | | | | ACUTE NM Testing | | | | | | performed at [facility];[address] | | | | | | [address];[place] | | | | | | [address] | | | | + + + + + + + + | Specimen | + + | Blood specimen | | (specimen) | + + + +---------+ + + | Performing | Address | City/State/Zipcode | Phone Number | | Organization | | | | + +---------+ + + | EXTERNAL LAB | | | | + +---------+ + + PTT (11/20/2018 5:50 AM PST) + + + + + + | Component | Value | Ref Range | Performed | Pathologist | | | | | At | Signature | + + + + + + | aPTT, | 29Comment: Testing | 23 - 32 seconds | EXTERNAL | | | Patient | performed at [facility];[address] | | LAB | | | | [address];[place], [place] | | | | | | [address] | | | | + + + + + + + + | Specimen | + + | Blood specimen | | (specimen) | + + + +---------+ + + | Performing | Address | City/State/Zipcode | Phone Number | | Organization | | | | + +---------+ + + | EXTERNAL LAB | | | | + +---------+ + + Protime INR (11/20/2018 5:50 AM PST) + + + + + + | Component | Value | Ref Range | Performed | Pathologist | | | | | At | Signature | + + + + + + | INR | 1.0Comment: REFERENCE | | EXTERNAL | | | | RANGE:0.9 - 1.2 | | LAB | | | | NON-ANTICOAGULATED2.0 | | | | | | - 3.0 ALL OTHER | | | | | | THERAPEUTIC | | | | | | INDICATIONS2.5 - 3.5 | | | | | | MECHANICAL HEART VALVES, | | | | | | RECURRENT OR SYSTEMIC | | | | | | EMBOLISMTesting | | | | | | performed at [facility];[address] | | | | | | [address] [facility];[place], [place] | | | | | | [address] | | | | + + + [...] + +---------+ + + External Lab: CBC (11/20/2018 5:50 AM PST) + + + + + + | Component | Value | Ref Range | Performed | Pathologist | | | | | At | Signature | + + + + + + | WBC | 7.53 | 3.80 - 11.00 | EXTERNAL | | | | | K/uL | LAB | | + + + + + + | RED CELL | 3.57 (L) | 3.70 - 5.10 | EXTERNAL | | | COUNT | | M/uL | LAB | | + + + + + + | Hgb | 10.1 (L) | 11.3 - 15.5 | EXTERNAL | | | | | g/dL | LAB | | + + + + + + | Hematocrit, | 32.1 (L) | 34.0 - 46.0 % | EXTERNAL | | | POC | | | LAB | | + + + + + + | MCV | 89.8 | 80.0 - 100.0 fl | EXTERNAL | | | | | | LAB | | + + + + + + | MCH | 28.2 | 27.0 - 34.0 pg | EXTERNAL | | | | | | LAB | | + + + + + + | MCHC | 31.4 (L) | 32.0 - 35.5 | EXTERNAL | | | | | g/dL | LAB | | + + + + + + | RDW-CV | 49.0 | 37 - 53 fl | EXTERNAL | | | | | | LAB | | + + + + + + | Platelet | 291 | 150 - 400 K/uL | EXTERNAL | | | Count | | | LAB | | | Plasma | | | | | + + + + + + | MPV | 8.5 | fl | EXTERNAL | | | | | | LAB | | + + + + + + | Differentia | AUTOMATED | | EXTERNAL | | | l Type | | | LAB | | + + + + + + | % Segmented | 70.51 | % | EXTERNAL | | | | | | LAB | | | Neutrophils | | | | | + + + + + + | % | 18.72 | % | EXTERNAL | | | Lymphocytes | | | LAB | | + + + + + + | % Monocytes | 8.19 | % | EXTERNAL | | | | | | LAB | | + + + + + + | % | 2.19 | % | EXTERNAL | | | Eosinophils | | | LAB | | + + + + + + | % Basophils | 0.39 | % | EXTERNAL | | | | | | LAB | | + + + + + + | Absolute | 5.31 | 1.90 - 7.40 | EXTERNAL | | | Segmented | | K/uL | LAB | | | Neutrophils | | | | | + + + + + + | Absolute | 1.41 | 1.00 - 3.90 | EXTERNAL | | | Lymphocytes | | K/uL | LAB | | + + + + + + | Absolute | 0.62 | 0.00 - 0.80 | EXTERNAL | | | Monocytes | | K/uL | LAB | | + + + + + + | Absolute | 0.17 | 0.00 - 0.50 | EXTERNAL | | | Eosinophils | | K/uL | LAB | | + + + + + + | Absolute | 0.03Comment: Testing | 0.00 - 0.10 | EXTERNAL | | | Basophils | performed at [facility], [address] | K/uL | LAB | | | | [address], | | | | | | [place] [address] | | | | + + + + + + + + | Specimen | + + | Blood specimen | | (specimen) | + + + +---------+ + + | Performing | Address | City/State/Zipcode | Phone Number | | Organization | | | | + +---------+ + + | EXTERNAL LAB | | | | + +---------+ + + POC Glucose (11/20/2018 5:50 AM PST) + + + + + + | Component | Value | Ref Range | Performed | Pathologist | | | | | At | Signature | + + + + + + | Glucose, | 136 (H)Comment: Testing | 65 - 99 mg/dL | EXTERNAL | | | Fingerstick | performed at [facility];[address] | | LAB | | | | [address];[place] | | | | | | [address] | | | | + + + + + + + + | Specimen | + + | | + + + +---------+ + + | Performing | Address | City/State/Zipcode | Phone Number | | Organization | | | | + +---------+ + + | EXTERNAL LAB | | | | + +---------+ + + Phosphorus (11/20/2018 5:50 AM PST) + + + + + + | Component | Value | Ref Range | Performed | Pathologist | | | | | At | Signature | + + + + + + | PHOSPHORUS | 5.2 (H)Comment: Testing | 2.3 - 4.8 mg/dL | EXTERNAL | | | | performed at [facility], [address] | | LAB | | | | [address], | | | | | | [place] [address] | | | | + + + + + + + + | Specimen | + + | Blood specimen | | (specimen) | + + + +---------+ + + | Performing | Address | City/State/Zipcode | Phone Number | | Organization | | | | + +---------+ + + | EXTERNAL LAB | | | | + +---------+ + + Magnesium (11/20/2018 5:50 AM PST) + + + + + + | Component | Value | Ref Range | Performed | Pathologist | | | | | At | Signature | + + + + + + | Magnesium | 2.4Comment: Testing | 1.7 - 2.4 mg/dL | EXTERNAL | | | | performed at [facility], [address] | | LAB | | | | [address], | | | | | | [place] [address] | | | | + + + [...] + +---------+ + + Basic Metabolic Panel (11/20/2018 5:50 AM PST) + + + + + + | Component | Value | Ref Range | Performed | Pathologist | | | | | At | Signature | + + + + + + | Na | 140 | 135 - 145 | EXTERNAL | | | | | mmol/L | LAB | | + + + + + + | K | 4.6 | 3.5 - 4.9 | EXTERNAL | | | | | mmol/L | LAB | | + + + + + + | Cl | 107 | 99 - 109 mmol/L | EXTERNAL | | | | | | LAB | | + + + + + + | CO2 | 20 (L) | 23 - 32 mmol/L | EXTERNAL | | | | | | LAB | | + + + + + + | Anion Gap | 18 | 5 - 20 mmol/L | EXTERNAL | | | | | | LAB | | + + + + + + | Glucose, | 135 (H) | 65 - 99 mg/dL | EXTERNAL | | | Fasting | | | LAB | | + + + + + + | BUN | 60 (H) | 8 - 25 mg/dL | EXTERNAL | | | | | | LAB | | + + + + + + | Creatinine | 1.6 (H) | 0.50 - 1.00 | EXTERNAL | | | | | mg/dL | LAB | | + + + + + + | BUN/Creatin | 38 | | EXTERNAL | | | ine Ratio | | | LAB | | + + + + + + | Calcium | 9.0 | 8.5 - 10.5 | EXTERNAL | | | | | mg/dL | LAB | | + + + + + + | Estimated | 32 (L)Comment: GFR <60: | mL/min/1.73m2 | EXTERNAL | | | GFR | CHRONIC KIDNEY DISEASE, | | LAB | | | | IF FOUND OVER A 3 MONTH | | | | | | PERIOD.GFR <15: KIDNEY | | | | | | FAILURE.FOR | | | | | | AMERICANS, MULTIPLY THE | | | | | | CALCULATED GFR BY | | | | | | 1.210.This eGFR is | | | | | | calculated using the | | | | | | MDRD IDMS traceable | | | | | | equation.Testing | | | | | | performed at [facility], [address] | | | | | | [address], | | | | | | [place] [address] | | | | + + + + + + + + | Specimen | + + | Blood specimen | | (specimen) | + + + +---------+ + + | Performing | Address | City/State/Zipcode | Phone Number | | Organization | | | | + +---------+ + + | EXTERNAL LAB | | | | + +---------+ + + MRSA NAAT (11/20/2018 3:59 AM PST) + + | Specimen | + + | | + + + + + | Narrative | Performed At | + + + | SOURCE NARES(NOSE) MRSA | EXTERNAL LAB | | PCR NEGATIVE Testing | | | performed at [facility];[address] [place] [address];[place] [address] | | + + + + +---------+ + + | Performing | Address | City/State/Zipcode | Phone Number | | Organization | | | | + +---------+ + + | EXTERNAL LAB | | | | + +---------+ + + POC Glucose (11/20/2018 1:16 AM PST) + + + + + + | Component | Value | Ref Range | Performed | Pathologist | | | | | At | Signature | + + + + + + | Glucose, | 141 (H)Comment: Testing | 65 - 99 mg/dL | EXTERNAL | | | Fingerstick | performed at [facility];[address] | | LAB | | | | [address];[place] | | | | | | [address] | | | | + + + + + + + + | Specimen | + + | | + + + +---------+ + + | Performing | Address | City/State/Zipcode | Phone Number | | Organization | | | | + +---------+ + + | EXTERNAL LAB | | | | + +---------+ + + HISTORICAL LAB PANEL RESULT (11/19/2018 8:43 PM PST) + + + + + -+ | Component | Value | Ref Range | Performed | Pathologist | | | | | At | Signature | + + + + + -+ | WBC | 7.60 | 3.80 - 11.00 | EXTERNAL | | | | | K/uL | LAB | | + + + + + -+ | RED CELL | 3.68 (L) | 3.70 - 5.10 | EXTERNAL | | | COUNT | | M/uL | LAB | | + + + + + -+ | Hgb | 10.8 (L) | 11.3 - 15.5 | EXTERNAL | | | | | g/dL | LAB | | + + + + + -+ | Hematocrit, | 33.0 (L) | 34.0 - 46.0 % | EXTERNAL | | | POC | | | LAB | | + + + + + -+ | MCV | 89.6 | 80.0 - 100.0 fl | EXTERNAL | | | | | | LAB | | + + + + + -+ | MCH | 29.2 | 27.0 - 34.0 pg | EXTERNAL | | | | | | LAB | | + + + + + -+ | MCHC | 32.6 | 32.0 - 35.5 | EXTERNAL | | | | | g/dL | LAB | | + + + + + -+ | RDW-CV | 49.4 | 37 - 53 fl | EXTERNAL | | | | | | LAB | | + + + + + -+ | Platelet | 293 | 150 - 400 K/uL | EXTERNAL | | | Count | | | LAB | | | Plasma | | | | | + + + + + -+ | MPV | 8.5 | fl | EXTERNAL | | | | | | LAB | | + + + + + -+ | Differentia | AUTOMATED | | EXTERNAL | | | l Type | | | LAB | | + + + + + -+ | % Segmented | 71.17 | % | EXTERNAL | | | | | | LAB | | | Neutrophils | | | | | + + + + + -+ | % | 17.92 | % | EXTERNAL | | | Lymphocytes | | | LAB | | + + + + + -+ | % Monocytes | 8.30 | % | EXTERNAL | | | | | | LAB | | + + + + + -+ | % | 1.99 | % | EXTERNAL | | | Eosinophils | | | LAB | | + + + + + -+ | % Basophils | 0.62 | % | EXTERNAL | | | | | | LAB | | + + + + + -+ | Absolute | 5.41 | 1.90 - 7.40 | EXTERNAL | | | Segmented | | K/uL | LAB | | | Neutrophils | | | | | + + + + + -+ | Absolute | 1.36 | 1.00 - 3.90 | EXTERNAL | | | Lymphocytes | | K/uL | LAB | | + + + + + -+ | Absolute | 0.63 | 0.00 - 0.80 | EXTERNAL | | | Monocytes | | K/uL | LAB | | + + + + + -+ | Absolute | 0.15 | 0.00 - 0.50 | EXTERNAL | | | Eosinophils | | K/uL | LAB | | + + + + + -+ | Absolute | 0.05 | 0.00 - 0.10 | EXTERNAL | | | Basophils | | K/uL | LAB | | + + + + + -+ | Na | 140 | 135 - 145 | EXTERNAL | | | | | mmol/L | LAB | | + + + + + -+ | K | 4.5 | 3.5 - 4.9 | EXTERNAL | | | | | mmol/L | LAB | | + + + + + -+ | Cl | 109 | 99 - 109 mmol/L | EXTERNAL | | | | | | LAB | | + + + + + -+ | CO2 | 21 (L) | 23 - 32 mmol/L | EXTERNAL | | | | | | LAB | | + + + + + -+ | Anion Gap | 14 | 5 - 20 mmol/L | EXTERNAL | | | | | | LAB | | + + + + + -+ | Glucose, | 116 (H) | 65 - 99 mg/dL | EXTERNAL | | | Fasting | | | LAB | | + + + + + -+ | BUN | 57 (H) | 8 - 25 mg/dL | EXTERNAL | | | | | | LAB | | + + + + + -+ | Creatinine | 1.8 (H) | 0.50 - 1.00 | EXTERNAL | | | | | mg/dL | LAB | | + + + + + -+ | BUN/Creatin | 32 | | EXTERNAL | | | ine Ratio | | | LAB | | + + + + + -+ | Calcium | 8.4 (L) | 8.5 - 10.5 | EXTERNAL | | | | | mg/dL | LAB | | + + + + + -+ | Protein, | 7.4 | 6.3 - 8.2 g/dL | EXTERNAL | | | Total | | | LAB | | + + + + + -+ | Albumin | 3.1 (L) | 3.3 - 4.8 g/dL | EXTERNAL | | | | | | LAB | | + + + + + -+ | Globulin | 4.3 | 1.3 - 4.9 g/dL | EXTERNAL | | | | | | LAB | | + + + + + -+ | A/G Ratio | 0.7 (L) | 1.0 - 2.4 | EXTERNAL | | | | | | LAB | | + + + + + -+ | Bilirubin | 0.6 | 0.1 - 1.5 mg/dL | EXTERNAL | | | Total | | | LAB | | + + + + + -+ | ALP, | 149 (H) | 35 - 115 U/L | EXTERNAL | | | External | | | LAB | | + + + + + -+ | AST | 29 | 10 - 45 U/L | EXTERNAL | | | | | | LAB | | + + + + + -+ | ALT | 50 | 10 - 65 U/L | EXTERNAL | | | | | | LAB | | + + + + + -+ | Estimated | 28 (L)Comment: GFR <60: | mL/min/1.73m2 | EXTERNAL | | | GFR | CHRONIC KIDNEY DISEASE, | | LAB | | | | IF FOUND OVER A 3 MONTH | | | | | | PERIOD.GFR <15: KIDNEY | | | | | | FAILURE.FOR | | | | | | AMERICANS, MULTIPLY THE | | | | | | CALCULATED GFR BY | | | | | | 1.210.This eGFR is | | | | | | calculated using the | | | | | | MDRD IDMS traceable | | | | | | equation. | | | | + + + + + -+ | CK, Total | 116 | 30 - 240 U/L | EXTERNAL | | | | | | LAB | | + + + + + -+ | INR | 1.0Comment: REFERENCE | | EXTERNAL | | | | RANGE:0.9 - 1.2 | | LAB | | | | NON-ANTICOAGULATED2.0 | | | | | | - 3.0 ALL OTHER | | | | | | THERAPEUTIC | | | | | | INDICATIONS2.5 - 3.5 | | | | | | MECHANICAL HEART VALVES, | | | | | | RECURRENT OR SYSTEMIC | | | | | | EMBOLISM | | | | + + + + + -+ | aPTT, | 31 | 23 - 32 seconds | EXTERNAL | | | Patient | | | LAB | | + + + + + -+ | CK-MB | 3.4 | 0.5 - 3.6 ng/mL | EXTERNAL | | | | | | LAB | | + + + + + -+ | CK-MB Index | 2.9Comment: CK INDEX | | EXTERNAL | | | | INTERPRETATION: | | LAB | | | | MMB ng/mL | | | | | | | | | | | |CK INDEX INTERPRETATION: | | | | | | MMB ng/mL | | | | | | | | | | + + + + + -+ + + | Specimen | + + | | + + + +---------+ + + | Performing | Address | City/State/Zipcode | Phone Number | | Organization | | | | + +---------+ + + | EXTERNAL LAB | | | | + +---------+ + + Troponin I (11/19/2018 8:43 PM PST) + + + + + + | Component | Value | Ref Range | Performed | Pathologist | | | | | At | Signature | + + + + + + | Troponin I, | <0.02Comment: 0.00 to | 0.00 - 0.10 | EXTERNAL | | | Qual | 0.10 CONSISTENT WITH | ng/mL | LAB | | | | NORMAL POPULATION0.11 to | | | | | | 0.60 CONSISTENT WITH | | | | | | INCREASED RISK FOR | | | | | | ADVERSE OUTCOMES> 0.60 | | | | | | CONSISTENT | | | | | | WITH WHO CRITERIA FOR | | | | | | ACUTE NM Testing | | | | | | performed at [facility];[address] | | | | | | [facility];[place], [place] | | | | | | [address] | | | | + + + + + + + + | Specimen | + + | Blood specimen | | (specimen) | + + + +---------+ + + | Performing | Address | City/State/Zipcode | Phone Number | | Organization | | | | + +---------+ + + | EXTERNAL LAB | | | | + +---------+ + + TSH (11/19/2018 8:43 PM PST) + + + + + + | Component | Value | Ref Range | Performed | Pathologist | | | | | At | Signature | + + + + + + | TSH | 3.010Comment: Testing | 0.450 - 5.100 | EXTERNAL | | | | performed at [facility];[address] | uIU/mL | LAB | | | | [address];[place], [place] | | | | | | [address] | | | | + + + + + + + + | Specimen | + + | Blood specimen | | (specimen) | + + + +---------+ + + | Performing | Address | City/State/Zipcode | Phone Number | | Organization | | | | + +---------+ + + | EXTERNAL LAB | | | | + +---------+ + + T4, Free (11/19/2018 8:43 PM PST) + + + + + + | Component | Value | Ref Range | Performed | Pathologist | | | | | At | Signature | + + + + + + | FREE T4 | 1.4Comment: Testing | 0.7 - 1.5 ng/dL | EXTERNAL | | | (REF) | performed at [facility];[address] | | LAB | | | | [facility];[place], [place] | | | | | | [address] | | | | + + + + + + + + | Specimen | + + | Blood specimen | | (specimen) | + + + +---------+ + + | Performing | Address | City/State/Zipcode | Phone Number | | Organization | | | | + +---------+ + + | EXTERNAL LAB | | | | + +---------+ + + Phosphorus (11/19/2018 8:43 PM PST) + + + + + + | Component | Value | Ref Range | Performed | Pathologist | | | | | At | Signature | + + + + + + | PHOSPHORUS | 4.6Comment: Testing | 2.3 - 4.8 mg/dL | EXTERNAL | | | | performed at [facility];[address] | | LAB | | | | [address];[place], [place] | | | | | | [address] | | | | + + + + + + + + | Specimen | + + | Blood specimen | | (specimen) | + + + +---------+ + + | Performing | Address | City/State/Zipcode | Phone Number | | Organization | | | | + +---------+ + + | EXTERNAL LAB | | | | + +---------+ + + B Type Natriuretic Peptide (11/19/2018 8:43 PM PST) + + + + + + | Component | Value | Ref Range | Performed | Pathologist | | | | | At | Signature | + + + + + + | BNP | 683 (H)Comment: Testing | 0 - 100 pg/mL | EXTERNAL | | | | performed at [facility];[address] | | LAB | | | | [address];[place] | | | | | | [address] | | | | + + + + + + + + | Specimen | + + | Blood specimen | | (specimen) | + + + +---------+ + + | Performing | Address | City/State/Zipcode | Phone Number | | Organization | | | | + +---------+ + + | EXTERNAL LAB | | | | + +---------+ + + Magnesium (11/19/2018 8:43 PM PST) + + + + + + | Component | Value | Ref Range | Performed | Pathologist | | | | | At | Signature | + + + + + + | Magnesium | 2.5 (H)Comment: Testing | 1.7 - 2.4 mg/dL | EXTERNAL | | | | performed at [facility];[address] | | LAB | | | | [facility];[place], [place] | | | | | | [address] | | | | + + + + + + + + | Specimen | + + | Blood specimen | | (specimen) | + + + +---------+ + + | Performing | Address | City/State/Zipcode | Phone Number | | Organization | | | | + +---------+ + + | EXTERNAL LAB | | | | + +---------+ + + XR Chest 1 Vw (11/19/2018 6:11 PM PST) + + | Specimen | + + | | + + + + + | Narrative | Performed At | + + + | This is a non-reportable procedure without a radiologist report and | | | is used for image storage only | | + + + + + | Procedure Note | + + | Jairo, Ruiz Conversion - 06/10/2019 11:36 PM PDT This is a non-reportable procedure | | without a radiologist report and isused for image storage only | + + documented in this encounter Visit Diagnoses + + | Diagnosis | + + | Diagnosis unknown Other unknown and unspecified cause of morbidity or mortality | + + | 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
--- OUTSIDE RECORDS SUMMARY | ~2019-10-04 | XMS | Encounter Summary ---
Demographics + + + | Address | [address] | | | [place] [address] | + + + | Home Phone [...] | + + + + + | Lats Garner | ECON | [address] | | | | | [place] | | | | | [address] | | + + + + + Care Team Providers + +------+ + | Care Retail Security Professional Name | Role | Phone | + +------+ + | Marilee Whaley | PCP | | | PA | | | + +------+ + Encounter Details +--------+ + + + + | Date | Type | Department | Care Team | Description | +--------+ + + + + | 07/10/ | Orders Only | [facility] | Jonathan Acosta MD | | | 2015 | | NEPHROLOGY [place] | [address] [place] | | | | | [address] [place] | [address] [place], [place] | | | | | [address] [place], [place] | [address] | | | | | [address] | | | | | | [phone] | | | +--------+ + + + [...] 2019 | Visit | | [address] [facility] | | | | | | [address] [place] | | | | | | [address] | | | | | | | [...] | | | LAB | | | [facility] | | | | | + + [...]
--- OUTSIDE RECORDS SUMMARY | ~2019-10-04 | XMS | Encounter Summary ---
Demographics + + + | Address | [address] | | | [place] [address] | + + + | Home Phone | | + + + | Preferred Language | Unknown | + + + | Marital Status | | + + + | Protestant Affiliation | Unknown | + + + | Race | Unknown | + + + | Ethnic Group | Unknown | + + + Author + + + | Author | [facility] | | | and [place] | + + + | Organization | [facility] | | | and [place] | + + + | Address | Unknown | + + + | Phone | Unavailable | + + + Support + + + + + | Name | Relationship | Address | Phone | + + + + + | Last Garner | ECON | [address] | | | | | [place] | | | | | [address] | | + + + + + Care Team Providers + +------+ + | Care Internist Medical Doctor Md Name | Role | Phone | + [...] [address] | [address] [place], [place] | | | | | [place], [place] | [address] | | | | | [address] | | | | | | [phone] | | | +--------+ + + + [...] 2019 | Visit | | [address] [facility] | | | | | | [address] [facility] | | | | | | [address] | | | | | | | [...]
--- OUTSIDE RECORDS SUMMARY | ~2019-10-04 | XMS | Encounter Summary ---
Demographics + + + | Address | [address] | | | [place] [address] | + + + | Home Phone | | + + + | Preferred Language | Unknown | + + + | Marital Status | | + + + | Catholic Affiliation | Unknown | + + + | Race | Unknown | + + + | Ethnic Group | Unknown | + + + Author + + + | Author | [facility] | | | and [place] | + + + | Organization | [facility] | | | and [place] | + + + | Address | Unknown | + + + | Phone | Unavailable | + + + Support + + + + + | Name | Relationship | Address | Phone | + + + + + | Last Kishorcarlos | ECON | [address] | | | | | [place] | | | | | [address] | | + + + + + Care Team Providers + +------+ + | Care Link Cutter Name | Role | Phone | + +------+ + | Marilee Whaley | PCP | | | PA | | | + +------+ + Encounter Details +--------+ + + + + | Date | Type | Department | Care Team | Description | +--------+ + + + + | 05/03/ | Orders Only | [facility] | Conversion | | | 2018 | | NEPHROLOGY [place] | Transaction, | | | | | [address] | Provider Unknown | | | | | [address] [place], [place] | | | | | | [address] | (Fax) | | | | | [phone] | | | +--------+ + + + [...] 2019 | Visit | | [address] [facility] | | | | | | [address] [place], [place] | | | | | | [address] | | | | | | | [...] | EXTERNAL LAB: CBC | Routin | 05/03/2018 | | Results for this | | | e | 12:55 PM | | procedure are in the | | | | PDT | | results section. | + +--------+ + + + | PROTEIN/CREATININE | Routin | 05/03/2018 | | Results for this | | RATIO, URINE | e | 12:55 PM | | procedure are in the | | | | PDT | | results section. | + +--------+ + + + | URIC ACID | Routin | 05/03/2018 | | Results for this | | | e | 12:55 PM | | procedure are in the | | | | PDT | | results section. | + +--------+ + + + | MAGNESIUM | Routin | 05/03/2018 | | Results for this | | | e | 12:55 PM | | procedure are in the | | | | PDT | | results section. | + +--------+ + + + | RENAL FUNCTION PANEL | Routin | 05/03/2018 | | Results for this | | | e | 12:55 PM | | procedure are in the | | | | PDT | | results section. | + +--------+ + + + | PARATHYROID HORMONE, | Routin | 05/02/2018 | | Results for this | | INTACT | e | 12:55 PM | | procedure are in the | | | | PDT | | results section. | + +--------+ + + + documented in this encounter Results Protein/Creatinine Ratio, Urine (05/03/2018 12:55 PM PDT) + +-------+ + + + | Component | Value | Ref Range | Performed | Pathologist | | | | | At | Signature | + +-------+ + + + | Protein/Cre | 106.4 | 0 - 150 | EXTERNAL | [...] + +---------+ + + External Lab: CBC (05/03/2018 12:55 PM PDT) + + + + + + | Component | Value | Ref Range | Performed | Pathologist | | | | | At | Signature | + + + + + + | WBC | 5.0 | 4.5 - 11.0 10 | EXTERNAL | | | | | | LAB | | + + + + + + | RED CELL | 4.01 | 3.8 - 5.1 10 | EXTERNAL | | | COUNT | | | LAB | | + + + + + + | Hgb | 11.5 (A) | 12 - 16 g/dL | EXTERNAL | | | | | | LAB | | + + + + + + | Hematocrit, | 36.6 | 35 - 45 % | EXTERNAL | | | POC | | | LAB | | + + + + + + | MCV | 91.2 | 81 - 99 fL | EXTERNAL [...] + + + + | Platelet | 211 | 140 - 440 K/ L | EXTERNAL | | | Count | | | LAB | | | Plasma | | | | | + + + + + + | RDW-CV | 15.3 (A) | 10.5 - 15.0 % | [...] | + +---------+ + + Uric Acid (05/03/2018 12:55 PM PDT) + +-------+ + + + | Component | Value | Ref Range | Performed | Pathologist | | | | | At | Signature | + +-------+ + + + | Uric Acid | 6.6 | 2.3 - 6.6 | EXTERNAL | [...] | | + +---------+ + + Magnesium (05/03/2018 12:55 PM PDT) + +---------+ + + [...] + +---------+ + + Renal Function Panel (05/03/2018 12:55 PM PDT) + + + + + + | Component | Value | Ref Range | Performed | Pathologist | | | | | At | Signature | + + + + + + | Glucose, | 107 (A) | 70 - 100 mg/dL | EXTERNAL | | | Fasting | | | LAB | | + + + + + + | BUN | 20 | 6 - 23 mg/dL | EXTERNAL | | | | | | LAB | | + + + + + + | Creatinine | 0.88 | 0.7 - 1.18 | EXTERNAL | | | | | mg/dL | LAB | | + + + + + + | PHOSPHORUS | 2.6 | 2.5 - 5.0 mg/dL | EXTERNAL [...] + + + + | Cl | 104 | 95 - 112 mmol/L | EXTERNAL | | | | | | LAB | | + + + + + + | CO2 | 21 | 19 - 31 mmol/L | EXTERNAL | | | | | | LAB | | + + + + + + | Anion Gap | 22.6 (A) | 7 - 21 mmol/L | EXTERNAL | | | | | | LAB | | + + + + + + | eGFR if not | | | EXTERNAL | | | | | | LAB | | | [facility] | | | | | + + + + + + | Phosphorus, | | | EXTERNAL | | | Inorganic | | | LAB | | + + + + + + | BUN/Creatin | 22.7 | 6.0 - 28.6 | EXTERNAL | | | ine Ratio | | | LAB | | + + + + + + | Calcium | 9.2 | 8.4 - 10.2 | EXTERNAL | | | | | mg/dL | LAB | | + + + + + + | Estimated | 63 | mg/dL | EXTERNAL | | | [...] + +---------+ + + Parathyroid Hormone, Intact (05/02/2018 12:55 PM PDT) + + + + + + | Component | Value | Ref Range | Performed | Pathologist | | | | | At | Signature | + + + + + + | PTH INTACT | 81.28 (A) | 15 - 65 pg/mL | [...]
--- OUTSIDE RECORDS SUMMARY | ~2019-10-04 | XMS | Encounter Summary ---
Demographics + + + | Address | [address] | | | [place] [address] | + + + | Home Phone | | + + + | Preferred Language | Unknown | + + + | Marital Status | | + + + | Muslim Affiliation | Unknown | + + + | Race | Unknown | + + + | Ethnic Group | Unknown | + + + Author + + + | Author | [facility] | | | and [place] | + + + | Organization | [facility] | | | and [place] | + + + | Address | Unknown | + + + | Phone | Unavailable | + + + Support + + + + + | Name | Relationship | Address | Phone | + + + + + | Last Kishorcarlos | ECON | [address] | | | | | [place] | | | | | [address] | | + + + + + Care Team Providers + +------+ + | Care Electrician Machine Shop Name | Role | Phone | + +------+ + | Marilee Whaley | PCP | | | PA | | | + +------+ + Encounter Details +--------+ + + + + | Date | Type | Department | Care Team | Description | +--------+ + + + + | 12/28/ | Orders Only | [facility] | Conversion | | | 2018 | | NEPRHOLOGY [place] | Transaction, | | | | | [address] | Provider Unknown | | | | | [address] [place], [place] | [phone] | | | | | [address] | | | | | | [phone] | | | +--------+ + + + [...] | Visit | | [address] [facility] | | | | | | [address] [place] | | | | | | [address] | | | | | | | [...] | EXTERNAL LAB: CBC | Routin | 12/28/2017 | | Results for this | | | e | 12:00 AM | | procedure are in the | | | | PST | | results section. | + +--------+ + + + | PARATHYROID HORMONE, | Routin | 12/28/2017 | | Results for this | | INTACT AND CALCIUM | e | 12:00 AM | | procedure are in the | | | | PST | | results section. | + +--------+ + + + | PROTEIN/CREATININE | Routin | 12/28/2017 | | Results for this | | RATIO, URINE | e | 12:00 AM | | procedure are in the | | | | PST | | results section. | + +--------+ + + + | URIC ACID | Routin | 12/28/2017 | | Results for this | | | e | 12:00 AM | | procedure are in the | | | | PST | | results section. | + +--------+ + + + | MAGNESIUM | Routin | 12/28/2017 | | Results for this | | | e | 12:00 AM | | procedure are in the | | | | PST | | results section. | + +--------+ + + + | RENAL FUNCTION PANEL | Routin | 12/28/2017 | | Results for this | | | e | 12:00 AM | | procedure are in the | | | | PST | | results section. | + +--------+ + + + documented in this encounter Results Parathyroid Hormone, Intact and Calcium (12/28/2017 12:00 AM PST) + + + + + + | Component | Value | Ref Range | Performed | Pathologist | | | | | At | Signature | + + + + + + | PTH Intact | 69.51 (A) | 15 - 65 | EXTERNAL [...] + +---------+ + + Protein/Creatinine Ratio, Urine (12/28/2017 12:00 AM PST) + +-------+ + + + | Component | Value | Ref Range | Performed | Pathologist | | | | | At | Signature | + +-------+ + + + | Protein/Cre | 101.7 | 0 - 150 | EXTERNAL | | | at Ratio | | | LAB | | + +-------+ + + + + + | Specimen | + + | Urine specimen | | (specimen) | + + + + + | Narrative | Performed At | + + + | PROTEIN, URINE - 6- 0.0 - 50.0 CREATININE, URINE - 59 | EXTERNAL LAB | + + + + +---------+ + + | Performing | Address | City/State/Zipcode | Phone Number | | Organization | | | | + +---------+ + + | EXTERNAL LAB | | | | + +---------+ + + External Lab: CBC (12/28/2017 12:00 AM PST) + +-------+ + + + | Component | Value | Ref Range | Performed | Pathologist | | | | | At | Signature | + +-------+ + + + | WBC | 7.2 | 4.5 - 11.0 10 | EXTERNAL | | | | | | LAB | | + +-------+ + + + | RED CELL | 4.29 | 3.8 - 5.1 10 | EXTERNAL | | | COUNT | | | LAB | | + +-------+ + + + | Hgb | 13.1 | 12.0 - 16.0 | EXTERNAL | | | | | g/dL | LAB | | + +-------+ + + + | Hematocrit, | 39.9 | 35 - 45 % | EXTERNAL | | | POC | | | LAB | | + +-------+ + + + | MCV | 93.0 | 81 - 99 fL | EXTERNAL | | | | | | LAB | | + +-------+ + + + | MCH | 31 | 27 - 33 pg | EXTERNAL | | | | | | LAB | | + +-------+ + + + | MCHC | 33 | 30 - 36 g/dL | EXTERNAL | | | | | | LAB | | + +-------+ + + + | Platelet | 291 | 140 - 440 K/ L | EXTERNAL | | | Count | | | LAB | | | Plasma | | | | | + +-------+ + + + | RDW-CV | 14.5 | 10.5 - 15.0 % | EXTERNAL [...] + + + | % Segmented | 55.8 | 39 - 80 % | EXTERNAL | | | | | | LAB | | | Neutrophils | | | | | + +-------+ + + + | % | 30.7 | 24 - 44 % | EXTERNAL | | | Lymphocytes | | | LAB | | + +-------+ + + + | % Monocytes | 7.6 | 0 - 12 % | EXTERNAL | | | | | | LAB | | + +-------+ + + + | % | 5.3 | 0 - 6 % | EXTERNAL [...] | + +---------+ + + Uric Acid (12/28/2017 12:00 AM PST) + +---------+ + + + | Component | Value | Ref Range | Performed | Pathologist | | | | | At | Signature | + +---------+ + + + | Uric Acid | 6.9 (A) | 2.3 - 6.6 | EXTERNAL [...] | | + +---------+ + + Magnesium (12/28/2017 12:00 AM PST) + +-------+ + + [...] + +---------+ + + Renal Function Panel (12/28/2017 12:00 AM PST) + + + + [...] + + + + | Creatinine | 0.94 | 0.70 - 1.18 | EXTERNAL | [...] + + + + | Na | 141 | 132 - 143 | EXTERNAL | | | | | mmol/L | LAB | | + + + + + + | K | 4.0 | 3.6 - 5.1 | EXTERNAL | [...] + + + | Anion Gap | 18.0 | 7 - 21 mmol/L | EXTERNAL | | | | | | LAB | | + + + + + + | eGFR if not | | | EXTERNAL | | | | | | LAB | | | ER[facility]REAN | | | | | + + + + + + | Phosphorus, | 4.0 | 2.5 - 5.0 | EXTERNAL | | | Inorganic | | | LAB | | + + + + + + | BUN/Creatin | 28.7 (A) | 6.0 - 28.6 | EXTERNAL | | | ine Ratio | | | LAB | | + + + + + + | Calcium | 9.7 | 8.4 - 10.2 | EXTERNAL | | | | | mg/dL | LAB | | + + + + + + | Estimated | 58 | mg/dL | EXTERNAL | | | [...]
--- OUTSIDE RECORDS SUMMARY | ~2019-10-04 | XMS | Encounter Summary ---
Demographics + + + | Address | [address] | | | [place] [address] | + + + | Home Phone | | + + + | Preferred Language | Unknown | + + + | Marital Status | | + + + | Scientologist Affiliation | Unknown | + + + | Race | Unknown | + + + | Ethnic Group | Unknown | + + + Author + + + | Author | [facility] | | | and [place] | + + + | Organization | [facility] | | | and [place] | + + + | Address | Unknown | + + + | Phone | Unavailable | + + + Support + + + + + | Name | Relationship | Address | Phone | + + + + + | Last Kishorcarlos | ECON | [address] | | | | | [place] | | | | | [address] | | + + + + + Care Team Providers + +------+ + | Care Costumer Assistant Name | Role | Phone | + +------+ + | Marilee Whaley | PCP | | | PA | | | + +------+ + Encounter Details +--------+ + + + + | Date | Type | Department | Care Team | Description | +--------+ + + + + | 09/15/ | Orders Only | [facility] | Conversion | | | 2016 | | NEPRHOLOGY [place] | Transaction, | | | | | [address] | Provider Unknown | | | | | [address] [place], [place] | [phone] | | | | | [address] | | | | | | [phone] | | | +--------+ + + + [...] 2019 | Visit | | [address] [facility] | | | | | | [address] [place] | | | | | | [address] | | | | | | | [...] - 1.030 | EXTERNAL | | | [place] | | | LAB | | + [...]
--- OUTSIDE RECORDS SUMMARY | ~2019-10-04 | XMS | Encounter Summary ---
Demographics + + + | Address | [address] | | | [place] [address] | + + + | Home Phone | | + + + | Preferred Language | Unknown | + + + | Marital Status | | + + + | Yazidi Affiliation | Unknown | + + + | Race | Unknown | + + + | Ethnic Group | Unknown | + + + Author + + + | Author | [facility] | | | and [place] | + + + | Organization | [facility] | | | and [place] | + + + | Address | Unknown | + + + | Phone | Unavailable | + + + Support + + + + + | Name | Relationship | Address | Phone | + + + + + | Last [place] | ECON | [address] | | | | | [place] | | | | | [address] | | + + + + + Care Team Providers + +------+ + | Care Reception Centre Manager Name | Role | Phone | + +------+ + | Marilee Whaley | PCP | | | PA | | | + +------+ + Encounter Details +--------+ + + + + | Date | Type | Department | Care Team | Description | +--------+ + + + + | 10/10/ | Orders Only | [facility] | Conversion | | | 2017 | | NEPHROLOGY [facility] | Transaction, | | | | | [address] | Provider Unknown | | | | | [address] [place], [place] | | | | | | [address] | (Fax) | | | | | [phone] | | | +--------+ + + + [...] 2019 | Visit | | [address] [facility] | | | | | | [address] [place], [place] | | | | | | [address] | | | | | | | [...] | | | LAB | | | [facility] | | | | | + + [...]
--- OUTSIDE RECORDS SUMMARY | ~2019-10-04 | XMS | Encounter Summary ---
Demographics + + + | Address | [address] | | | [place] [address] | + + + | Home Phone | | + + + | Preferred Language | Unknown | + + + | Marital Status | | + + + | Mosque Affiliation | Unknown | + + + | Race | Unknown | + + + | Ethnic Group | Unknown | + + + Author + + + | Author | [facility] | | | and [place] | + + + | Organization | [facility] | | | and [place] | + + + | Address | Unknown | + + + | Phone | Unavailable | + + + Support + + + + + | Name | Relationship | Address | Phone | + + + + + | Last Kishorcarlos | ECON | [address] | | | | | [place] | | | | | [address] | | + + + + + Care Team Providers + +------+ + | Care Leasing Director Name | Role | Phone | + +------+ + | Marilee Whaley | PCP | | | PA | | | + +------+ + Reason for Visit + + + | Reason | Comments | + + + | MRI Recommendation | | + + + Encounter Details +--------+ + + + + | Date | Type | Department | Care Team | Description | +--------+ + + + + | 06/23/ | Telephone | [facility] | Rod Schaefer, | MRI Recommendation | | 2019 | | NEPRHOLOGY [place] | WELDER/FITTER [address] | | | | | [address] | [facility] | | | | | [address] [place], [place] | [place] | | | | | [address] | [address] | | | | | [phone] | | | | | | | [...] 2020 | Visit | | [address] [facility] | | | | | | [address] [place], [place] | | | | | | [address] | | | | | | | [...] + | Diagnosis | + + | Hemorrhage of cyst of [place] kidney - Primary Vascular disorders of kidney | + + documented in this encounter"
--- OUTSIDE RECORDS SUMMARY | ~2019-10-04 | XMS | Encounter Summary ---
Demographics + + + | Address | [address] | | | [place] [address] | + + + | Home Phone | | + + + | Preferred Language | Unknown | + + + | Marital Status | | + + + | Presybeterian Affiliation | Unknown | + + + [...] + | Last Kishorcarlos | ECON | [address] | | | | | [place] | | | | | [address] | | + + + + + Care Team Providers + +------+ + | Care Laborer Bituminous Paving Name | Role | Phone | + [...] Required | | of cyst of | FREELANCE RECRUITER [address] | [address] | | | | | [place] | [place] | [place] | | | | | kidney | [address]VE | [place], [place] | | | | | | [place], | [address] | | | | | | [place] | Phone: | | | | | | [address] | [phone] | | | | | | Phone: | Fax: | | | | | | [phone] | [phone] | | | | | | Fax: | | | | | | | [phone] | | + + + + + + + + + | Scheduling Instructions | + + | Please send to Urology in [place] at [facility]. Dr. Payan | + + Reason for Visit + + + | Reason | Comments | + + + | Referral Consult | | + + + Encounter Details +--------+ + + + + | Date | Type | Department | Care Team | Description | +--------+ + + + + | 06/23/ | Telephone | [facility] | oRd Schaefer, | Referral Consult | | 2019 | | NEPRHOLOGY [place] | FREELANCE RECRUITER [address] | | | | | [address] | [place] | | | | | [address] [place] | [place] | | | | | [address] | [address] | | | | | [phone] | | | | | | | [...] 2019 | Visit | | [address] [facility] | | | | | | [address] [place], [place] | | | | | | [address] | | | | | | | [...] Urology | Referral | e | of [place] kidney | | + + +--------+ + + documented as of this encounter Visit Diagnoses + + | Diagnosis | + + | Chronic kidney disease, stage III (moderate) (HCC) - Primary Chronic kidney disease, | | Stage III (moderate) | + + | Hemorrhage of cyst of [place] Vascular disorders of kidney | + + documented in this encounter"
--- OUTSIDE RECORDS SUMMARY | ~2019-10-04 | XMS | Encounter Summary ---
Demographics + + + | Address | [address] | | | [place] [address] | + + + | Home Phone | | + + + | Preferred Language | Unknown | + + + | Marital Status | | + + + | Buddhism Affiliation | Unknown | + + + | Race | Unknown | + + + | Ethnic Group | Unknown | + + + Author + + + | Author | [facility] | | | and [place] | + + + | Organization | [facility] | | | and [place] | + + + | Address | Unknown | + + + | Phone | Unavailable | + + + Support + + + + + | Name | Relationship | Address | Phone | + + + + + | Last Garner | ECON | [address] | | | | | [place] | | | | | [address] | | + + + + + Care Team Providers + +------+ + | Care Product Safety Administrator Name | Role | Phone | + +------+ + | Marilee Whaley | PCP | | | PA | | | + +------+ + Encounter Details +--------+ + + + + | Date | Type | Department | Care Team | Description | +--------+ + + + + | 01/02/ | Orders Only | [facility] | Jonathan cAosta MD | | | 2015 | | NEPHROLOGY [place] | [address] [place] | | | | | [address] [place] | [address] [place], [place] | | | | | [address] [place], [place] | [address] | | | | | [address] | | | | | | [phone] | | | +--------+ + + + [...] 2019 | Visit | | [address] [facility] | | | | | | [address] [place] | | | | | | [address] | | | | | | | [...]
--- OUTSIDE RECORDS SUMMARY | ~2019-10-04 | XMS | Encounter Summary ---
Demographics + + + | Address | [address] | | | [place] [address] | + + + | Home Phone | | + + + | Preferred Language | Unknown | + + + | Marital Status | | + + + | Hoahaoism Affiliation | Unknown | + + + [...] + | Last Kishorcarlos | ECON | [address] | | | | | [place] | | | | | [address] | | + + + + + Care Team Providers + +------+ + | Care Tractor Driver Teamster Name | Role | Phone | + +------+ + | Marilee Whaley | PCP | | | PA | | | + +------+ + Encounter Details +--------+ + + + + | Date | Type | Department | Care Team | Description | +--------+ + + + + | 10/10/ | Orders Only | [facility] | Conversion | | | 2016 | | NEPRHOLOGY [place] | Transaction, | | | | | [address] | Provider Unknown | | | | | [address] [place], [place] | [phone] | | | | | [address] | | | | | | [phone] | | | +--------+ + + + [...] 2019 | Visit | | [address] [facility] | | | | | | [address] [place] | | | | | | [address] | | | | | | | [...] + | CULTURE, URINE | Routin | 10/10/2016 | | Results for this | | | e | 12:00 AM | | procedure are in the | | | | PST | | results section. | + +--------+ + + + documented in this encounter Results Culture, Urine (10/10/2016 12:00 AM PST) + + | Specimen | + + | Urine specimen | | (specimen) | + + + + + | Narrative | Performed At | + + + | Specimen Description CULTURE | EXTERNAL LAB | | REPORT | | | STATUS | | | | | + + + + +---------+ + + | Performing | Address | City/State/Zipcode | Phone Number | | Organization | | | | + +---------+ + + | EXTERNAL LAB | | | | + +---------+ + + documented in this encounter Visit Diagnoses Not on filedocumented in this encounter"
--- OUTSIDE RECORDS SUMMARY | ~2019-10-04 | XMS | Encounter Summary ---
Demographics + + + | Address | [address] | | | [place] [address] | + + + | Home Phone | | + + + | Preferred Language | Unknown | + + + | Marital Status | | + + + | Gnosticism Affiliation | Unknown | + + + | Race | Unknown | + + + | Ethnic Group | Unknown | + + + Author + + + | Author | [facility] | | | and [place] | + + + | Organization | [facility] | | | and [place] | + + + | Address | Unknown | + + + | Phone | Unavailable | + + + Support + + + + + | Name | Relationship | Address | Phone | + + + + + | Last Kishorcarlos | ECON | [address] | | | | | [place] | | | | | [address] | | + + + + + Care Team Providers + +------+ + | Care Pediatric Psychiatrist Name | Role | Phone | + +------+ + | Marilee Whaley | PCP | | | PA | | | + +------+ + Encounter Details +--------+ + + + + | Date | Type | Department | Care Team | Description | +--------+ + + + + | 10/10/ | Orders Only | [facility] | Conversion | | | 2015 | | NEPHROLOGY [place] | Transaction, | | | | | [address] [facility] | Provider Unknown | | | | | [place] | | | | | | [address] | (Fax) | | | | | [phone] | | | +--------+ + + + [...] 2019 | Visit | | [address] [facility] | | | | | | [address] [place], [place] | | | | | | [address] | | | | | | | [...] - 1.030 | EXTERNAL | | | [place] | | | LAB | | + [...] | | | LAB | | | [place] | | | | | + +---------+ [...]
--- OUTSIDE RECORDS SUMMARY | ~2019-10-04 | XMS | Encounter Summary ---
Demographics + + + | Address | [address] | | | [place] [address] | + + + | Home Phone | | + + + | Preferred Language | Unknown | + + + | Marital Status | | + + + | Anabaptist Affiliation | Unknown | + + + | Race | Unknown | + + + | Ethnic Group | Unknown | + + + Author + + + | Author | [facility] | | | and [place] | + + + | Organization | [facility] | | | and [place] | + + + | Address | Unknown | + + + | Phone | Unavailable | + + + Support + + + + + | Name | Relationship | Address | Phone | + + + + + | Last Garner | ECON | [address] | | | | | [place] | | | | | [address] | | + + + + + Care Team Providers + +------+ + | Care Demurrage Clerk Name | Role | Phone | + +------+ + | Marilee Whaley | PCP | | | PA | | | + +------+ + Encounter Details +--------+ + + + + | Date | Type | Department | Care Team | Description | +--------+ + + + + | 01/16/ | Orders Only | [facility] | Jonathan Acosta MD | | | 2015 | | NEPHROLOGY [place] | [address] [place] | | | | | [address] [place] | [address] [place], [place] | | | | | [address] [place], [place] | [address] | | | | | [address] | | | | | | [phone] | | | +--------+ + + + [...] 2019 | Visit | | [address] [facility] | | | | | | [address] [place] | | | | | | [address] | | | | | | | [...] + | BASIC METABOLIC | Routin | 01/17/2016 | | Results for this | | PANEL | e | 12:00 AM | | procedure are in the | | | | PDT | | results section. | + +--------+ + + + documented in this encounter Results Basic Metabolic Panel (01/17/2016 12:00 AM PDT) + + + + + + | Component | Value | Ref Range | Performed | Pathologist | | | | | At | Signature | + + + + + + | Glucose, | 101 (A) | 70 - 100 mg/dL | EXTERNAL | | | Fasting | | | LAB | | + + + + + + | BUN | 34 (A) | 6 - 23 mg/dL | EXTERNAL | | | | | | LAB | | + + + + + + | Creatinine | 1.23 (A) | 0.70 - 1.18 | EXTERNAL | | | | | mg/dL | LAB | | + + + + + + | BUN/Creatin | 27.6 [...] + + + + | K | 5.2 (A) | 3.6 - 5.1 | EXTERNAL [...] + + + | Anion Gap | 16.2 | 7 - 21 mmol/L | EXTERNAL | | | | | | LAB | | + + + + + + | Estimated | 43 (A) | 60 - 140 mg/dL | [...]
--- OUTSIDE RECORDS SUMMARY | ~2019-10-04 | XMS | Encounter Summary ---
Demographics + + + | Address | [address] | | | [place] [address] | + + + | Home Phone [...] + | Author | [facility] | | | and [place] | + + + | Organization | [facility] | | | and [place] | + + + | Address | Unknown | + + + | Phone | Unavailable | + + + Support + + + + + | Name | Relationship | Address | Phone | + + + + + | Last Kishorcarlos | ECON | [address] | | | | | [place] | | | | | [address] | | + + + + + Care Team Providers + +------+ + | Care Rocket Assembly Operator Name | Role | Phone | [...] + + | 06/23/ | Telephone | [facility] | Rod Schaefer, | MRI Recommendation | | 2019 | | NEPRHOLOGY [place] | LENDING CONSULTANT [address] | | | | | [address] | [facility] | | | | | [address] [place], [place] | [place] | | | | | [address] | [address] | | | | | [phone] | | | | | | | [...] 2020 | Visit | | [address] [facility] | | | | | | [address] [place], [place] | | | | | | [address] | | | | | | | [...] + + | Hemorrhage of cyst of [place] kidney - Primary Vascular disorders of kidney | + + documented in this encounter"
--- OUTSIDE RECORDS SUMMARY | ~2019-10-04 | XMS | Encounter Summary ---
Demographics + + + | Address | [address] | | | [place] [address] | + + + | Home Phone [...] + | Last Kishorcarlos | ECON | [address] | | | | | [place] | | | | | [address] | | + + + + + Care Team Providers + +------+ + | Care Vice President Process Name | Role | Phone | + +------+ + | Mrailee Whaley | PCP | | | PA | | | + +------+ + Encounter Details +--------+ + + + + | Date | Type | Department | Care Team | Description | +--------+ + + + + | 12/28/ | Orders Only | [facility] | Conversion | | | 2018 | | NEPRHOLOGY [place] | Transaction, | | | | | [address] | Provider Unknown | | | | | [address] [place], [place] | [phone] | | | | | [address] | | | | | | [phone] | | | +--------+ + + + [...] 2019 | Visit | | [address] [facility] | | | | | | [address] [place] | | | | | | [address] | | | | | | | [...]
--- OUTSIDE RECORDS SUMMARY | ~2019-10-04 | XMS | Encounter Summary ---
Demographics + + + | Address | [address] | | | [place] [address] | + + + | Home Phone | | + + + | Preferred Language | Unknown | + + + | Marital Status | | + + + | Alevism Affiliation | Unknown | + + + [...] + + + + + | Last Pascual | ECON | [address] | | | | | [place] | | | | | [address] | | + + + + + Care Team Providers + +------+ + | Care General Assignment Reporter Name | Role | Phone | + +------+ + | Marilee Whaley | PCP | | | PA | | | + +------+ + Reason for Referral Evaluate & Treat (Routine) +--------+ + + + + + | Status | Reason | Specialty | Diagnoses / | Referred By | Referred To | | | | | Procedures | Contact | Contact | +--------+ + + + + + | Denied | Specialty | Urology | Diagnoses | Jyotsnam, | Delfino, | | | Services | | Hemorrhage | Jonathan Lambert MD | Am[place], | | | Required | | of cyst of | [address] | [address] | | | | | [facility] | [address] | [place] | | | | | kidney | [place], | [place], [place] | | | | | | [place] [address] | [address] | | | | | | Phone: | Phone: | | | | | | [phone] | [phone] | | | | | | Fax: | Fax: | | | | | | [phone] | [phone] | +--------+ + + + + + Encounter Details +--------+ + + + + | Date | Type | Department | Care Team | Description | +--------+ + + + + | 08/14/ | Orders Only | [facility] | Jonathan Acosta MD | Hemorrhage of cyst | | 2019 | | NEPHROLOGY [place] | [address] [place] | of [place] [facility] | | | | [address] [place] | [address] [place], [place] | (Primary Dx) | | | | [address] [place], [place] | [address] | | | | | [address] | | | | | | [phone] | | | +--------+ + + + [...] | Visit | | [address] [facility] | | | | | | [address] [place] | | | | | | [address] | | | | | | | [...] Routin | Hemorrhage of cyst | Ordered: 08/14/2019 | | to Urology | Referral | e | of [place] [facility] | | + + +--------+ + + documented as of this encounter Visit Diagnoses + + | Diagnosis | + + | Hemorrhage of cyst of [place] kidney - Primary Vascular disorders of kidney | + + documented in this encounter"
--- OUTSIDE RECORDS SUMMARY | ~2019-10-04 | XMS | Encounter Summary ---
Demographics + + + | Address | [address] | | | [place] [address] | + + + | Home Phone | | + + + | Preferred Language | Unknown | + + + | Marital Status | | + + + | Bahai Affiliation | Unknown | + + + | Race | Unknown | + + + | Ethnic Group | Unknown | + + + Author + + + | Author | [facility] | | | and [place] | + + + | Organization | [facility] | | | and [place] | + + + | Address | Unknown | + + + | Phone | Unavailable | + + + Support + + + + + | Name | Relationship | Address | Phone | + + + + + | Last Kishorcarlos | ECON | [address] | | | | | [place] | | | | | [address] | | + + + + + Care Team Providers + +------+ + | Care Aligning Inspector Name | Role | Phone | + +------+ + | Marilee Whaley | PCP | | | PA | | | + +------+ + Encounter Details +--------+ + + + + | Date | Type | Department | Care Team | Description | +--------+ + + + + | 07/23/ | Orders Only | [facility] | Conversion | | | 2017 | | NEPHROLOGY [place] | Transaction, | | | | | [address] | Provider Unknown | | | | | [address] [place], [place] | | | | | | [address] | (Fax) | | | | | [phone] | | | +--------+ + + + [...] | | | | | | [address] [place], [place] | | | | | | [address] | | | | | | | [...] | IRON AND IRON | Routin | 07/23/2017 | | Results for this | | BINDING CAPACITY | e | 12:55 PM | | procedure are in the | | | | PDT | | results section. | + +--------+ + + + documented in this encounter Results Iron and Iron Binding Capacity (07/23/2017 12:55 PM PDT) + + + + + + | Component | Value | Ref Range | Performed | Pathologist | | | | | At | Signature | + + + + + + | Iron | 58.54 | 37 - 160 | EXTERNAL | | | | | | LAB | | + + + + + + | Iron | 13.7 (A) | 20 - 55 | EXTERNAL | | | Saturation | | | LAB | | + + + + + + | TIBC | 426 (A) | 245 - 400 | EXTERNAL [...]
--- OUTSIDE RECORDS SUMMARY | ~2019-10-04 | XMS | Encounter Summary ---
Demographics + + + | Address | [address] | | | [place] [address] | + + + | Home Phone | | + + + | Preferred Language | Unknown | + + + | Marital Status | | + + + | Sabianism Affiliation | Unknown | + + + | Race | Unknown | + + + | Ethnic Group | Unknown | + + + Author + + + | Author | [facility] | | | and [place] | + + + | Organization | [facility] | | | and [place] | + + + | Address | Unknown | + + + | Phone | Unavailable | + + + Support + + + + + | Name | Relationship | Address | Phone | + + + + + | Last Kishorcarlos | ECON | [address] | | | | | [place] | | | | | [address] | | + + + + + Care Team Providers + +------+ + | Care Customer Engagement Representative Name | Role | Phone | + +------+ + | Marilee Whaley | PCP | | | PA | | | + +------+ + Encounter Details +--------+ + + + + | Date | Type | Department | Care Team | Description | +--------+ + + + + | 10/10/ | Orders Only | [facility] | Conversion | | | 2015 | | NEPHROLOGY [place] | Transaction, | | | | | [address] | Provider Unknown | | | | | [address] [place], [place] | | | | | | [address] | (Fax) | | | | | [phone] | | | +--------+ + + + [...] 2019 | Visit | | [address] [facility] | | | | | | [address] [place], [place] | | | | | | [address] | | | | | | | [...] + | CULTURE, URINE | Routin | 10/11/2016 | | Results for this | | | e | 12:25 PM | | procedure are in the [...] this | | INTACT | e | 12:15 PM | | [...] documented in this encounter Results Culture, Urine (10/11/2016 12:25 PM PST) + + | Specimen | [...] - 1.030 | EXTERNAL | | | [place] | | | LAB | | + + + + + + | Leukocyte | Comment: 500 | | EXTERNAL | | | Esterase, [...] Lab: CBC (10/10/2016 12:15 PM PST) + + + [...] + + + + | Hgb | 12.1 | 12.0 - 16.0 | EXTERNAL | | | | | g/dL | LAB | | + + + + + + | Hematocrit, | 36.5 | 35 - 45 % | EXTERNAL | | | POC | | | LAB | | + + + + + + | MCV | 88.0 [...] + + + + | Platelet | 275 [...] + +---------+ + + Parathyroid Hormone, Intact (10/10/2016 12:15 PM PST) + +-------+ + + + | Component | Value | Ref Range | Performed | Pathologist | | | | | At | Signature | + +-------+ + + + | PTH INTACT | 61.38 | 15 - 65 pg/mL | EXTERNAL [...] | | | LAB | | | [facility] | | | | | + +---------+ [...] Metabolic Panel (10/10/2016 12:15 PM PST) + + + + + + | Component | Value | Ref Range | Performed | Pathologist | | | | | At | Signature | + + + + + + | Glucose, | 103 (A) | 70 - 100 mg/dL | EXTERNAL | | | Fasting | | | LAB | | + + + + + + | BUN | 29 (A) | 6 - 23 mg/dL | EXTERNAL | | | | | | LAB | | + + + + + + | Creatinine | 1.05 (A) | 1.18 mg/dL | EXTERNAL | | | | [...] + + + + | Globulin | 2.4 [...] + + + + | ALP, | 105 | 30 - 128 | EXTERNAL | | | External | | | LAB | | + + + + + + | ALT | 19 [...] + + + + | Cl | 101 [...] + + + + | Estimated | 52 [...]
--- OUTSIDE RECORDS SUMMARY | ~2019-10-04 | XMS | Clinical Summary ---
Demographics + + + | Address | [address] | | | [place] [address] | + + + | Home Phone | | + + + | Preferred Language | Unknown | + + + | Marital Status | | + + + | Voodoo Affiliation | Unknown | + + + | Race | Unknown | + + + | Ethnic Group | Unknown | + + + Author + + + | Author | [facility] | | | and [place] | + + + | Organization | [facility] | | | and [place] | + + + | Address | Unknown | + + + | Phone | Unavailable | + + + Support + + + + + | Name | Relationship | Address | Phone | + + + + + | Last Kishorcarlos | ECON | [address] | | | | | [place] | | | | | [address] | | + + + + + Care Team Providers + +------+ + | Care Clerical Adviser Name | Role | Phone | + [...] + + | Hemorrhage of cyst of [place] | 06/23/2019 | + + + [...] Refill | | 2019 | | | CHARGE HAND | | +--------+ + + + + [...] | 2018 | | | | of [place] [facility] | | | | | | [...] Visit | | [address] [facility] | | | | | | [address] [place] | | | | | | [address] | | | | | | | [...] | | | | | by [employer] [place] Read Only, | | | | | | [employer] [place] ([id number]), | | | | | | restaurant expeditor Giovanni Cerda | | | | | | ([id number]) on 09/10/2019 | | | | | [...] | | | encounter for additional details. silk screen printing racker: Dru Vasquez | | | | | |See device data attached to scheduled encounter for additional | | |details. | | | | | |silk screen printing racker: Dru Vasquez | | | | | [...] +--------+ +---------+--------+ | MEDICARE | MEDICA | [id number] | | [phone] | | Medica | | | RE | | 009-Pr | 5 | | re | | | PART A | | esent | | | | | | AND B | | | | | | + +--------+ +--------+ +---------+--------+ | MEDICARE | MEDICA | [id number] | | [phone] | | Medica | | | RE | | 009-Pr | 5 | | re | | | PART A | | esent | | | | | | AND B | | | | | | + +--------+ +--------+ +---------+--------+ | [employer] SENIOR | AMERIC | [id number] | | [phone] | | Indemn | | SUPPLEMENTAL INS [...] +--------+ +---------+--------+ | CIGNA | CIGNA | [id number] | 11/29/19 | [phone] | | Indemn [...] Person | Self | [birth year] | [address] | | | al/Fam | | 1946 | [phone] | [place], [place] | | | [place]ory | | | 7 (Home) | [address] | + +--------+ +--------+ + + | Felicitas Garner | Person | Self | [birth year] | [address] | | | al/Fam | | 1946 | [phone] | [place], [place] | | | [place] | | | 7 (Home) | [address] | + +--------+ +--------+ + + Advance Directives + + + + + | Type | Date Recorded | Patient | Explanation | | | | It Support Consultant | | + + + + + | Power of | | | | | Third Rigger | | | | + + + + + | Advance | | | | | Directive | | | | + + + + +
--- OUTSIDE RECORDS SUMMARY | ~2019-10-04 | XMS | Encounter Summary ---
Demographics + + + | Address | [address] | | | [place] [address] | + + + | Home Phone | | + + + | Preferred Language | Unknown | + + + | Marital Status | | + + + | Yarsani Affiliation | Unknown | + + + | Race | Unknown | + + + | Ethnic Group | Unknown | + + + Author + + + | Author | [facility] | | | and [place] | + + + | Organization | [facility] | | | and [place] | + + + | Address | Unknown | + + + | Phone | Unavailable | + + + Support + + + + + | Name | Relationship | Address | Phone | + + + + + | Last Kishorcarlos | ECON | [address] | | | | | [place] | | | | | [address] | | + + + + + Care Team Providers + +------+ + | Care Caustic Strength Inspector Name | Role | Phone | + +------+ + | Marilee Whaley | PCP | | | PA | | | + +------+ + Encounter Details +--------+ + + + + | Date | Type | Department | Care Team | Description | +--------+ + + + + | 04/30/ | Orders Only | [facility] | Conversion | | | 2017 | | NEPHROLOGY [place] | Transaction, | | | | | [address] | Provider Unknown | | | | | [address] [place], [place] | | | | | | [address] | (Fax) | | | | | [phone] | | | +--------+ + + + [...] 2019 | Visit | | [address] [facility] | | | | | | [address] [place], [place] | | | | | | [address] | | | | | | | [...] | EXTERNAL LAB: CBC | Routin | 04/30/2017 | | Results for this | | | e | 12:00 AM | | procedure are in the | | | | PDT | | results section. | + +--------+ + + + | URINALYSIS WITH | Routin | 04/30/2017 | | Results for this | | MICROSCOPIC IF | e | 12:00 AM | | procedure are in the | | INDICATED | | PDT | | results section. | + +--------+ + + + | PARATHYROID HORMONE, | Routin | 04/30/2017 | | Results for this | | INTACT AND CALCIUM | e | 12:00 AM | | procedure are in the | | | | PDT | | results section. | + +--------+ + + + | PROTEIN/CREATININE | Routin | 04/30/2017 | | Results for this | | RATIO, URINE | e | 12:00 AM | | procedure are in the | | | | PDT | | results section. | + +--------+ + + + | URIC ACID | Routin | 04/30/2017 | | Results for this | | | e | 12:00 AM | | procedure are in the | | | | PDT | | results section. | + +--------+ + + + | RENAL FUNCTION PANEL | Routin | 04/30/2017 | | Results for this | | | e | 12:00 AM | | procedure are in the | | | | PDT | | results section. | + +--------+ + + + documented in this encounter Results Parathyroid Hormone, Intact and Calcium (04/30/2017 12:00 AM PDT) + +-------+ + + + | Component | Value | Ref Range | Performed | Pathologist | | | | | At | Signature | + +-------+ + + + | PTH Intact | 57.21 | 15 - 65 | EXTERNAL | [...] + +---------+ + + Protein/Creatinine Ratio, Urine (04/30/2017 12:00 AM PDT) + + + + + + | Component | Value | Ref Range | Performed | Pathologist | | | | | At | Signature | + + + + + + | Protein/Cre | Comment: NOT PERFORMED | | EXTERNAL | | | at Ratio | | | LAB | | + + + + + + + + | Specimen | + + | Urine specimen | | (specimen) | + + + + + | Impressions | Performed At | + + + | PROTEIN, URINE <4 CREATININE, URINE 49 | EXTERNAL LAB | + + + + +---------+ + + | Performing | Address | City/State/Zipcode | Phone Number | | Organization | | | | + +---------+ + + | EXTERNAL LAB | | | | + +---------+ + + Urinalysis with Microscopic if Indicated (04/30/2017 12:00 AM PDT) + + + + + + | Component | Value | Ref Range | Performed | Pathologist | | | | | At | Signature | + + + + + + | Color | Light Yellow | | EXTERNAL | | | | | | LAB | | + + + + + + | Clarity | Clear | | EXTERNAL | | | | | | LAB | | + + + + + + | Spec Grav, | 1.009 | 1.005 - 1.030 | [...] + +---------+ + + External Lab: CBC (04/30/2017 12:00 AM PDT) + + + + [...] + + + | RED CELL | 4.04 | 3.8 - 5.1 10 | EXTERNAL | | | COUNT | | | LAB | | + + + + + + | Hgb | 11.8 (A) | 12.0 - 16.0 | EXTERNAL | | | | | g/dL | LAB | | + + + + + + | Hematocrit, | 36.8 | 35 - 45 % | EXTERNAL [...] + + + + | Platelet | 221 | 140 - 440 K/ L | [...] + + + | % Segmented | 56.9 | 39 - 80 % | EXTERNAL | | | | | | LAB | | | Neutrophils | | | | | + + + + + + | % | 30.8 | 24 - 44 % | EXTERNAL | | | Lymphocytes | | | LAB | | + + + + + + | % Monocytes | 6.8 | 0 - 12 % | EXTERNAL | | | | | | LAB | | + + + + + + | % | 4.8 | 0 - 6 % | EXTERNAL [...] | + +---------+ + + Uric Acid (04/30/2017 12:00 AM PDT) + +---------+ + + + | Component | Value | Ref Range | Performed | Pathologist | | | | | At | Signature | + +---------+ + + + | Uric Acid | 9.0 (A) | 2.3 - 6.6 | EXTERNAL [...] + +---------+ + + Renal Function Panel (04/30/2017 12:00 AM PDT) + + + + + + | Component | Value | Ref Range | Performed | Pathologist | | | | | At | Signature | + + + + + + | Glucose, | 127 (A) | 70 - 100 mg/dL | EXTERNAL | | | Fasting | | | LAB | | + + + + + + | BUN | 47 (A) | 6 - 23 mg/dL | EXTERNAL | | | | | | LAB | | + + + + + + | Creatinine | 1.42 (A) | 0.70 - 1.18 | EXTERNAL [...] | | | LAB | | | TRISTANIAN | | | | | + + + + + + | Phosphorus, | 3.3 | 2.5 - 5.0 | EXTERNAL | | | Inorganic | | | LAB | | + + + + + + | BUN/Creatin | 33.1 (A) | 6.0 - 28.6 | EXTERNAL | | | ine Ratio | | | LAB | | + + + + + + | Calcium | 9.7 | 8.4 - 10.2 | EXTERNAL | | | | | mg/dL | LAB | | + + + + + + | Estimated | 36 (A) | 60 mg/dL | EXTERNAL | | | GFR [...]
--- OUTSIDE RECORDS SUMMARY | ~2019-10-04 | XMS | Encounter Summary ---
Demographics + + + | Address | [address] | | | [place] [address] | + + + | Home Phone | | + + + | Preferred Language | Unknown | + + + | Marital Status | | + + + | Yazdanism Affiliation | Unknown | + + + [...] + | Last Garner | ECON | [address] | | | | | [place] | | | | | [address] | | + + + + + Care Team Providers + +------+ + | Care Card Doffer Name | Role | Phone | + +------+ + | Marilee Whaley | PCP | | | PA | | | + +------+ + Encounter Details +--------+ + + + + | Date | Type | Department | Care Team | Description | +--------+ + + + + | 07/23/ | Orders Only | [facility] | PawanRod dai, | | | 2017 | | NEPHROLOGY [place] | SUPERINTENDENT HORTICULTURE [address] | | | | | [address] | [address] | | | | | [address] [facility] [place] | [place] | | | | | [address] | [address] | | | | | [phone] | [phone] | | | | | | | [...] 2019 | Visit | | [address] [facility] | | | | | | [address] [facility] | | | | | | [address] | | | | | | | [...] | | | LAB | | | FIJIAN | | | | | + +---------+ [...]
--- OUTSIDE RECORDS SUMMARY | ~2019-10-04 | XMS | Encounter Summary ---
Demographics + + + | Address | [address] | | | [place] [address] | + + + | Home Phone | | + + + | Preferred Language | Unknown | + + + | Marital Status | | + + + | Lutheran Affiliation | Unknown | + + + [...] + | Last Kishorcarlos | ECON | [address] | | | | | [place] | | | | | [address] | | + + + + + Care Team Providers + +------+ + | Care Bobbin Cleaner Name | Role | Phone | + +------+ + | Marilee Whaley | PCP | | | PA | | | + +------+ + Encounter Details +--------+ + + + + | Date | Type | Department | Care Team | Description | +--------+ + + + + | 10/10/ | Orders Only | [facility] | Conversion | | | 2015 | | NEPHROLOGY [place] | Transaction, | | | | | [address] | Provider Unknown | | | | | [address] [place], [place] | | | | | | [address] | (Fax) | | | | | [phone] | | | +--------+ + + + [...] 2019 | Visit | | [address] [facility] | | | | | | [address] [place], [place] | | | | | | [address] | | | | | | | [...] - 1.030 | EXTERNAL | | | [place] | | | LAB | | + [...] | | | LAB | | | [place] | | | | | + +---------+ [...]
--- OUTSIDE RECORDS SUMMARY | ~2019-10-04 | XMS | Encounter Summary ---
Demographics + + + | Address | [address] | | | [place] [address] | + + + | Home Phone | | + + + | Preferred Language | Unknown | + + + | Marital Status | | + + + | Restorationism Affiliation | Unknown | + + + | Race | Unknown | + + + | Ethnic Group | Unknown | + + + Author + + + | Author | [facility] | | | and [place] | + + + | Organization | [facility] | | | and [place] | + + + | Address | Unknown | + + + | Phone | Unavailable | + + + Support + + + + + | Name | Relationship | Address | Phone | + + + + + | Last Garner | ECON | [address] | | | | | [place] | | | | | [address] | | + + + + + Care Team Providers + +------+ + | Care Silver Solderer Name | Role | Phone | + +------+ + | Marilee Whaley | PCP | | | PA | | | + +------+ + Encounter Details +--------+ + + + + | Date | Type | Department | Care Team | Description | +--------+ + + + + | 06/24/ | Orders Only | [facility] | Eitananupama Rowan | | | 2018 | | NEPRHOLOGY [place] | V, Medical | | | | | [address] | Bag Repairer | | | | | [address] [place], [place] | | | | | | [address] | | | | | | [phone] | | | +--------+ + + + [...] 2019 | Visit | | [address] [facility] | | | | | | [facility] | | | | | | [address] | | | | | | | [...]
--- OUTSIDE RECORDS SUMMARY | ~2019-10-04 | XMS | Encounter Summary ---
Demographics + + + | Address | [address] | | | [place] [address] | + + + | Home Phone | | + + + | Preferred Language | Unknown | + + + | Marital Status | | + + + | Confucianism Affiliation | Unknown | + + + | Race | Unknown | + + + | Ethnic Group | Unknown | + + + Author + + + | Author | [facility] | | | and [place] | + + + | Organization | [facility] | | | and [place] | + + + | Address | Unknown | + + + | Phone | Unavailable | + + + Support + + + + + | Name | Relationship | Address | Phone | + + + + + | Last Garner | ECON | [address] | | | | | [place] | | | | | [address] | | + + + + + Care Team Providers + +------+ + | Care Roof Painter Name | Role | Phone | + +------+ + | Marilee Whaley | PCP | | | PA | | | + +------+ + Encounter Details +--------+ + + + + | Date | Type | Department | Care Team | Description | +--------+ + + + + | 01/16/ | Orders Only | [facility] | Jonathan Acosta MD | | | 2015 | | NEPHROLOGY [place] | [address] | | | | | [address] | [address] [place], [place] | | | | | [address] [place], [place] | [address] | | | | | [address] | | | | | | [phone] | | | +--------+ + + + [...] 2019 | Visit | | [address] [facility] | | | | | | [address] [place] | | | | | | [address] | | | | | | | [...]
--- OUTSIDE RECORDS SUMMARY | ~2019-10-04 | XMS | Clinical Summary ---
Demographics + + + | Address | [address] | | | [place] [address] | + + + | Home Phone | | + + + | Preferred Language | Unknown | + + + | Marital Status | | + + + | Restorationist Affiliation | Unknown | + + + | Race | Unknown | + + + | Ethnic Group | Unknown | + + + Author + + + | Author | [facility] (Historical as of | | | 06-14-19) | + + + | Organization | [facility] (Historical as of | | | 06-14-19) | + + + | Address | Unknown | + + + | Phone | Unavailable | + + + Support + + + + + | Name | Relationship | Address | Phone | + + + + + | Last Ayala | ECON | [address] | | | | | [place] | | | | | [address] | | + + + + + Care Team Providers + +------+ + | Care Security Systems Administrator Name | Role | Phone | [...] + + + | BMI 45.0-49.9, adult ([facility]) | 11/19/2018 | + + + + [...] Left: | [address] | | | [id number] | | Qty: 1 on 11/20/2018 by | c | Chest | [facility], | | | | | Tejas Beltran MD | [employer] | | [employer] | | | /[id number] | | | | | | | [...] +--------+-------+ + | MEDICARE | MEDICA | [id number] | | | [address] | | | RE | | | | [place] [address] | | | IP-OP | | | | | + +--------+ +--------+-------+ + | CIGNA | LOYAL | [id number] | Indemn | | | | | [...] | Self | [birth year] | Home: | [address] | | | al/Yair | | 1946 | [phone] [place], [place] | | | rory | | | [phone] | [address] | + +--------+ +--------+ + +
--- OUTSIDE RECORDS SUMMARY | ~2019-10-04 | XMS | Encounter Summary ---
Demographics + + + | Address | [address] | | | [place] [address] | + + + | Home Phone [...] + | Last Kishorcarlos | ECON | [address] | | | | | [place] | | | | | [address] | | + + + + + Care Team Providers + +------+ + | Care Sports Apparel Internship Name | Role | Phone | + +------+ + | Marilee Whaley | PCP | | | PA | | | + +------+ + Encounter Details +--------+ + + + + | Date | Type | Department | Care Team | Description | +--------+ + + + + | 05/14/ | Orders Only | [facility] | Conversion | | | 2017 | | NEPHROLOGY [place] | Transaction, | | | | | [address] | Provider Unknown | | | | | [address] [place], [place] | | | | | | [address] | (Fax) | | | | | [phone] | | | +--------+ + + + [...] 2019 | Visit | | [address] [facility] | | | | | | [address] [place], [place] | | | | | | [address] | | | | | | | [...] - 1.030 | EXTERNAL | | | [place] | | | LAB | | + [...] | | | LAB | | | [place] | | | | | + + [...]
--- OUTSIDE RECORDS SUMMARY | ~2019-10-04 | XMS | Encounter Summary ---
Demographics + + + | Address | [address] | | | [place] [address] | + + + | Home Phone | | + + + | Preferred Language | Unknown | + + + | Marital Status | | + + + | Taoism Affiliation | Unknown | + + + | Race | Unknown | + + + | Ethnic Group | Unknown | + + + Author + + + | Author | [facility] | | | and [place] | + + + | Organization | [facility] | | | and [place] | + + + | Address | Unknown | + + + | Phone | Unavailable | + + + Support + + + + + | Name | Relationship | Address | Phone | + + + + + | Last Kishorcarlos | ECON | [address] | | | | | [place] | | | | | [address] | | + + + + + Care Team Providers + +------+ + | Care Metallurgy Teacher Name | Role | Phone | + +------+ + | Marilee Whaley | PCP | | | PA | | | + +------+ + Encounter Details +--------+ + + + + | Date | Type | Department | Care Team | Description | +--------+ + + + + | 10/10/ | Orders Only | [facility] | Conversion | | | 2016 | | NEPRHOLOGY [place] | Transaction, | | | | | [address] | Provider Unknown | | | | | [address] [place], [place] | [phone] | | | | | [address] | | | | | | [phone] | | | +--------+ + + + [...] 2019 | Visit | | [address] [facility] | | | | | | [address] [place] | | | | | | [address] | | | | | | | [...]
--- OUTSIDE RECORDS SUMMARY | ~2019-10-04 | XMS | Encounter Summary ---
Demographics + + + | Address | [address] | | | [place] [address] | + + + | Home Phone | | + + + | Preferred Language | Unknown | + + + | Marital Status | | + + + | Adventist Affiliation | Unknown | + + + | Race | Unknown | + + + | Ethnic Group | Unknown | + + + Author + + + | Author | [facility] | | | and [place] | + + + | Organization | [facility] | | | and [place] | + + + | Address | Unknown | + + + | Phone | Unavailable | + + + Support + + + + + | Name | Relationship | Address | Phone | + + + + + | Last Garner | ECON | [address] | | | | | [place] | | | | | [address] | | + + + + + Care Team Providers + +------+ + | Care Brazing Furnace Feeder Name | Role | Phone | + [...] [address] | | | | | [place], [place] | [place] [address] | | | | | [address] | [phone] | | | | | [phone] | | | +--------+ + + + [...] | Visit | | [address] [facility] | | | | | | [address] [place], [place] | | | | | | [address] | | | | | | | [...]
--- OUTSIDE RECORDS SUMMARY | ~2019-10-04 | XMS | Encounter Summary ---
Demographics + + + | Address | [address] | | | [place] [address] | + + + | Home Phone | | + + + | Preferred Language | Unknown | + + + | Marital Status | | + + + | Mormon Affiliation | Unknown | + + + | Race | Unknown | + + + | Ethnic Group | Unknown | + + + Author + + + | Author | [facility] | | | and [place] | + + + | Organization | [facility] | | | and [place] | + + + | Address | Unknown | + + + | Phone | Unavailable | + + + Support + + + + + | Name | Relationship | Address | Phone | + + + + + | Last Kishorcarlos | ECON | [address] | | | | | [place] | | | | | [address] | | + + + + + Care Team Providers + +------+ + | Care Hand Paster Name | Role | Phone | + [...] + + | 09/09/ | Office | [facility] | Valerie Escalera, ANP | 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[facility]) (Primary | | | | [address] | [address] [place], [place] | Dx); Pacemaker | | | | [place], [place] | [address] | | | | | [address] | | | | | | [phone] | | | +--------+---------+ + + + [...] 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 Stop Lasix, potassium, and amlodipine. Increase losartan to 50 mg daily at bedtime. She looks dry. 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 | | | | | | [address] [place] | | | | | | [address] | | | | | | | [...] | | | | | by [facility] Perryman Read Only, | | | | | | ICA Susan ([id number]), | | | | | | editorial clerk Giovanni Cerda | | | | | | ([phone]) on 09/10/2019 | | | | | [...]
--- OUTSIDE RECORDS SUMMARY | ~2019-10-04 | XMS | Encounter Summary ---
Demographics + + + | Address | [address] | | | [place] [address] | + + + | Home Phone | | + + + | Preferred Language | Unknown | + + + | Marital Status | | + + + | Restorationist Affiliation | Unknown | + + + | Race | Unknown | + + + | Ethnic Group | Unknown | + + + Author + + + | Author | [facility] | | | and [place] | + + + | Organization | [facility] | | | and [place] | + + + | Address | Unknown | + + + | Phone | Unavailable | + + + Support + + + + + | Name | Relationship | Address | Phone | + + + + + | Last Kishorcarlos | ECON | [address] | | | | | [place] | | | | | [address] | | + + + + + Care Team Providers + +------+ + | Care Warehouse Pricing And Inventory Clerk Name | Role | Phone | [...] [place] | | | | | | [address] | (Fax) | | | | | [phone] | | | +--------+ + + + [...] 2019 | Visit | | [address] [facility] | | | | | | [address] [place], [place] | | | | | | [address] | | | | | | | [...] | | | LAB | | | SRI LANKAN | | | | | + + [...]
--- OUTSIDE RECORDS SUMMARY | ~2019-10-04 | XMS | Encounter Summary ---
Demographics + + + | Address | [address] | | | [place] [address] | + + + | Home Phone | | + + + | Preferred Language | Unknown | + + + | Marital Status | | + + + | Zoroastrianism Affiliation | Unknown | + + + | Race | Unknown | + + + | Ethnic Group | Unknown | + + + Author + + + | Author | [facility] | | | and [place] | + + + | Organization | [facility] | | | and [place] | + + + | Address | Unknown | + + + | Phone | Unavailable | + + + Support + + + + + | Name | Relationship | Address | Phone | + + + + + | Last Kishorcarlos | ECON | [address] | | | | | [place] | | | | | [address] | | + + + + + Care Team Providers + +------+ + | Care Quality Assurance Lead Name | Role | Phone | + +------+ + | Marilee Whaley | PCP | | | PA | | | + +------+ + Encounter Details +--------+ + + + + | Date | Type | Department | Care Team | Description | +--------+ + + + + | 01/02/ | Orders Only | [facility] | Fred Du, | Back pain, | | 2016 | | NEUROSURGERY [address] | DO [address] | unspecified back | | | | [address] | [address] [place], [place] | pain laterality, | | | | [place], [place] | [address] | unspecified location | | | | [address] | | (Primary Dx) | | | | [phone] | | | +--------+ + + + [...] 2019 | Visit | | [address] | | | | | | [facility] [place] | | | | | | [address] | | | | | | | [...] | +--------+ + + + + + +---------+--------+ + + | Name | Type | Priori | Associated Diagnoses | Order Schedule | | | | ty | | | + +---------+--------+ + + | XR Lumbar Spine 4 + | Imaging | Routin | Back pain | Expected: | | Vw | | e | | 01/03/2016, Expires: | | | | | | 01/02/2017 | + +---------+--------+ + + documented as of this encounter Visit Diagnoses + + | Diagnosis | + + | Back pain, unspecified back pain laterality, unspecified location - Primary | + + documented in this encounter"
--- OUTSIDE RECORDS SUMMARY | ~2019-10-04 | XMS | Encounter Summary ---
Demographics + + + | Address | [address] | | | [place] [address] | + + + | Home Phone [...] + | Last Kishorcarlos | ECON | [address] | | | | | [place] | | | | | [address] | | + + + + + Care Team Providers + +------+ + | Care Eyeglass Frames Inspector Name | Role | Phone | + +------+ + | Marilee Whaley | PCP | | | PA | | | + +------+ + Encounter Details +--------+ + + + + | Date | Type | Department | Care Team | Description | +--------+ + + + + | 11/19/ | Hospital | [facility] | Nini Brewer DO | Diagnosis unknown; | | 2019 - | Encounter | [facility] | [address] | Third degree heart | | | | CARE FLOOR [address] | [place] [address] | block ([facility]); | | 11/21/ | | [address] | [phone] | Bradycardia; Third | | 2019 | | [place], [place] | | degree AV block | | | | [address] | | ([facility]); Benign | | | | [phone] | | essential | | | | | | hypertension; 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 1945 Admit date: 11/19/2018 Discharge [...] radiologist report and is used for image Orbotix Cl Pacemaker Dual Generator With Leads Result Date: 11/20/2018 [place] OCEDURE: Permanent dual-chamber pacemaker. HISTORY: This 73-year-old [...] electrocautery in the usual manner . A 6-German introducer was placed into the subclavian vein; and through that, a St. Dae m leonard 2088TC-58 cm, serial number [id number] lead was placed into the apex of [...] wit h two #1 Ethibond sutures. Another 6-German sheath was placed into the subclavian vein; and through that, a St. Dae model 2088TC-52 cm, serial number [id number] lead was placed into th e high right atrium and screwed into position. The final pacing threshold was 0.75 volts at 0.4 milliseconds and P-waves were 4.3 karan volts with an impedance of 490 ohms. The lead was anchored with two #1 Ethibond sutures. The leads were attached to a St. Dae Assurity MR I-compatible, model 2272, serial number [id number] pacemaker. That device was placed into the [...] anesthetized with 1 percent xyloca ine. A 6-German sheath was placed into the right femoral vein and through that, a 6-German quadripolar pacing catheter was advanced into the [...] Vmean: 0.89 m/s PV VTI: 24.78 cm Eyeglass Frames Inspector: JESS Authenticated by: Hubert cohen Date/Time: 11-20-2018 8:24:22 1. This was a technically difficult study with suboptimal views. 2. Left ventricular systol ic function is hyperdynamic with an estimated EF of >70%. HPI and Hospital Course: 73-year-old female with past medical history diabetes mellitus typ e II, renal mass, edema, right adrenal gland who was [facility] w ith a third-degree block [...] 11/21/18 0930 Last data filed at 11/21/18 0532 Gross per 24 hour Intake 500 ml [...] file for this admission. Tejas Clarke MD [address] [place] [address] [place] [address] In 1 week For wound re-check WITH DUSTIN Whaley, [place] [address] [place] [address] In [...] Note by Dany Jarquin RN at 11/21/18 644 Author: Dany Jarquin RN Service: (none) Author Type: Registered Nurse Filed: 11/21/18 1428 Date of Service: 11/21/181255 Status: Signed Clinical Aide: Dany Jarquin RN (Registered Nurse) Pt given AVS discharge paperwork and it was reviewed with her and her friend. Prescriptions were sent with pt to take to pharmacy of her choice. Pt denied any questions. IV was remove d with catheter intact and bandage was applied. Shipping Specialist came and took pt down to her frien d's car with her belongings in hand. Chart check complete. Dany Jarquin RN uTejas hathaway MD - 11/21/2018 7:42 AM PST Progress Notes by Tejas Clarke MD at 11/21/18 1563 Author: Tejas Clarke MD Service: Cardiology Author Type: Physician Filed: 11/21/18 9514 Date of Service: 11/21/18741 Status: Addendum Clinical Aide: Tejas Clarke MD (Physician) Related Notes: Original [...] Neuro: awake and alert Tejas Clarke MD [facility] PATIENT NAME: Felicitas Ayala : 1945: [...] 11/21/1844 Date of Service: 11/21/18642 Status: Signed Clinical Aide: Ida Harley RN (Registered Nurse) A&Ox4, VSS, no acute changes from previous shift. Chart check complete. Ida mooney RN onver denisa Transaction, Provider Unknown - 11/20/2018 6:03 PM PST Progress Notes by Cristy Shea RN at 11/20/181802 Author: Cristy Shea RN Service: (none) Author Type: Registered Nurse Filed: 11/20/181803 Date of Service: 11/20/181802 Status: Signed Clinical Aide: Cristy Shea RN (Registered Nurse) Patient transferred [...] Date of Service: 11/20/18 1640 Status: Signed Clinical Aide: Cristy Shea RN (Registered Nurse) End of shift chart review complete onver denisa Transaction, Provider Unknown - 11/20/2018 1:30 PM PST Case Management by Kathia Olson RN at 11/20/18 1330 Author: Kathia Olson RN Service: (none) Author Type: Registered Nurse Filed: 11/20/18 1410 Date of Service: 11/20/18 1330 Status: Signed Clinical Aide: Kathia Olson RN (Registered Nurse) 11/20/18 922 Discharge Planning Evaluation Admitting Diagnosis 3rd Degree AV Block & HEIKE (transfer from [facility]) Readmission No Living Arrangements Spouse/significant other Support [...] Plan Yes Name of Pharmacy [facility] in [place] Previous home health equipment Yes (walker) Anticipated Disposition Facility Type Home Met with pt and pt's spouse and discussed discharge planning, Pt is a 73 y.o., female who l mira in [place] with her . Pt is independent at [...] 1002 Date of Service: 11/20/18949 Status: Signed Clinical Aide: Cristy Shea RN (Registered Nurse) Patient transferred to clinical laboratory manager for PPM. onver denisa Transaction, Provider Unknown - 11/20/2018 3:19 AM PST Pharmacy Note by Loree Mcknight RPH at 11/20/18318 Author: Loree Mcknight RPH Service: Pharmacy Author Type: Pharmacist Filed: 11/20/18318 Date of Service: 11/20/18318 Status: Signed Clinical Aide: Loree Mcknight RPH (Pharmacist) Clinical Pharmacy Note: [...] 2019 | Visit | | [address] [facility] | | | | | | [address] [place] | | | | | | [address] | | | | | | | [...] | | | Fingerstick | performed at [facility];[address] | | LAB | | | | [address];[place] | | | | | | [address] | | | | + + + [...] | | | Fingerstick | performed at [facility];[address] | | LAB | | | [address];[place] | | | | | | [address] | | | | + + + [...] | | | | | [place] [address] | | | | + + + [...] | | | | | [place] [address] | | | | + + + [...] | | | | | [place] [address] | | | | + + + [...] Center, | | | | | | [place] [address] | | | | + + + [...] | | | Fingerstick | performed at [facility];[address] | | LAB | | | | [address];[place] | | | | | | [address] | | | | + + + [...] | | | Fingerstick | performed at [facility];[address] | | LAB | | | | [address];[place] | | | | | | [address] | | | | + + + [...] | | | Fingerstick | performed at [facility];[address] | | LAB | | | | [facility];[place] | | | | | | [address] | | | | + + + [...] | anesthetized with 1 percent xylocaine. A 6-German sheath was | | | placed into the right femoral vein and through that, a 6-German | | | quadripolar pacing catheter was [...] locally anesthetized with 1 percent xylocaine. A 6-German sheath was | | placed into the right femoral vein and through that, a 6-German quadripolar | | pacing catheter was advanced [...] the usual manner. | | | A 6-German introducer was placed into the subclavian vein; and | | | through that, a St. Dae model 2088TC-58 cm, serial number [id number] | | | lead was placed into [...] | | | #1 Ethibond sutures. Another 6-German sheath was placed into the | | | subclavian vein; and through that, a St. Dae model 2088TC-52 cm, | | | serial number [id number] lead was placed into the high right atrium | | | and screwed into position. The final pacing threshold was 0.75 | | | volts at 0.4 milliseconds and P-waves were 4.3 karan volts with an | | | impedance of 490 ohms. The lead was anchored with two #1 Ethibond | | | sutures. The leads were attached to a St. Dea Assurity | | | MRI-compatible, model 2272, serial number [id number] pacemaker. That | | | device was [...] in | | the usual manner. A 6-German introducer was placed into the subclavian | | vein; and through that, a St. Dae model 2088TC-58 cm, serial number | | [id number] lead was placed into the apex of [...] Ethibond sutures. | | | | Another 6-German sheath was placed into the subclavian vein; and through | | that, a St. Dae model 2088TC-52 cm, serial number [id number] lead was | | placed into the [...] MRI-compatible, model 2272, | | serial number [id number] pacemaker. That device was placed into the [...] PV VTI: 24.78 | | | cm Eyeglass Frames Inspector: MW Authenticated by: Hubert Lenz Report | [...] mlLAESV Index (A-L): 35.76 ml/m2LAAs A2C: 22.33 [id number] A-L | | A2C: 76.80 mlLALs A2C: 5.51 cmLAAs A4C: 22.25 sr7NEWHT A-L A4C: 64.48 mlLALs | | A4C: 6.51 cmHR: 39.73 BPMAV maxP.44 mmHgAV meanP.35 mmHgAV Vmax: 2.20 | | m/Christian Vmean: 1.46 m/Christian VTI: 44.80 cmAVA Vmax: 2.51 cm2AVA (VTI): 2.68 sm7IRBY | | Vmax: 0.00 cm2/m2AVAI (VTI): 0.00 cm2/m2LVCI Dopp: 2.21 l/jmvy8SYFK Dopp: 4.74 | | l/minHR: 39.51 BPMLVOT [...] m/sPV Vmean: 0.89 m/sPV VTI: 24.78 cm Eyeglass Frames Inspector: | | MWAuthenticated by: Hubert Ring Date/Time: [...] |PV VTI: 24.78 cm | | | |Eyeglass Frames Inspector: MW | |Authenticated by: Hubert Lenz | [...] | | | | | | ACUTE IA Testing | | | | | | performed at [facility];[address] | | | | | | [address];[place] | | | | | | [address] | | | | + + + [...] | | | Patient | performed at [facility];[address] | | LAB | | | | [address];[place], [place] | | | | | | [address] | | | | + + + [...] | | | | | performed at [facility];88 | | | | | | [facility];[place], [place] | | | | | | [address] | | | | + + + [...] | | | | | [place] [address] | | | | + + + [...] | | | Fingerstick | performed at [facility];[address] | | LAB | | | | [address];[place] | | | | | | [address] | | | | + + + [...] | | | | | [place] [address] | | | | + + + [...] Alas, | | | | | | [place] [address] | | | | + + + [...] | | | | | | [place] [address] | | | | + + + [...] NEGATIVE Testing | | | performed at [facility];[address] [place] [address];[place] [address] | | + + + + +---------+ [...] | | | Fingerstick | performed at [facility];[address] | | LAB | | | | [address];[place] | | | | | | [address] | | | | + + + [...] | | | | | | ACUTE IA Testing | | | | | | performed at [facility];[address] | | | | | | [facility];[place], [place] | | | | | | [address] | | | | + + + [...] EXTERNAL | | | | performed at [facility];[address] | uIU/mL | LAB | | | | [address];[place], [place] | | | | | | [address] | | | | + + + [...] | | | (REF) | performed at [facility];[address] | | LAB | | | | [facility];[place], [place] | | | | | | [address] | | | | + + + [...] EXTERNAL | | | | performed at [facility];[address] | | LAB | | | | [address];[place], [place] | | | | | | [address] | | | | + + + [...] EXTERNAL | | | | performed at [facility];[address] | | LAB | | | | [address];[place] | | | | | | [address] | | | | + + + [...] EXTERNAL | | | | performed at [facility];[address] | | LAB | | | | [facility];[place], [place] | | | | | | [address] | | | | + + + [...]
--- OUTSIDE RECORDS SUMMARY | ~2019-10-04 | XMS | Encounter Summary ---
Demographics + + + | Address | [address] | | | [place] [address] | + + + | Home Phone [...] + | Last Kishorcarlos | ECON | [address] | | | | | [place] | | | | | [address] | | + + + + + Care Team Providers + +------+ + | Care Manager Of Quality Name | Role | Phone | + [...] Description | +--------+--------+ + + + | 06/24/ | Refill | [facility] | Rod Schaefer, | Medication Refill | | 2018 | | NEPHROLOGY [place] | [address] | | | | | [address] [facility] | [place] | | | | | [place] | [place] | | | | | [address] | [address] | | | | | [phone] | [phone] | | | | | | | [...] 2020 | Visit | | [address] [facility] | | | | | | [address] [place], [place] | | | | | | [address] | | | | | | | [...]
--- OUTSIDE RECORDS SUMMARY | ~2019-10-04 | XMS | Encounter Summary ---
Demographics + + + | Address | [address] | | | [place] [address] | + + + | Home Phone | | + + + | Preferred Language | Unknown | + + + | Marital Status | | + + + | Roman Catholic Affiliation | Unknown | + + + | Race | Unknown | + + + | Ethnic Group | Unknown | + + + Author + + + | Author | [facility] | | | and [place] | + + + | Organization | [facility] | | | and [place] | + + + | Address | Unknown | + + + | Phone | Unavailable | + + + Support + + + + + | Name | Relationship | Address | Phone | + + + + + | Last Garner | ECON | [address] | | | | | [place] | | | | | [address] | | + + + + + Care Team Providers + +------+ + | Care Chief Estimator Name | Role | Phone | + +------+ + | Marilee Whaley | PCP | | | PA | | | + +------+ + Encounter Details +--------+ + + + + | Date | Type | Department | Care Team | Description | +--------+ + + + + | 01/02/ | Orders Only | [facility] | Jonathan Acosta MD | | | 2015 | | NEPHROLOGY [place] | [address] [place] | | | | | [address] [place] | [address] [place], [place] | | | | | [address] [place], [place] | [address] | | | | | [address] | | | | | | [phone] | | | +--------+ + + + [...] [place] | | | | | | [address] | | | | | | | [...]
--- OUTSIDE RECORDS SUMMARY | ~2019-10-04 | XMS | Encounter Summary ---
Demographics + + + | Address | [address] | | | [place] [address] | + + + | Home Phone | | + + + | Preferred Language | Unknown | + + + | Marital Status | | + + + | Druze Affiliation | Unknown | + + + | Race | Unknown | + + + | Ethnic Group | Unknown | + + + Author + + + | Author | [facility] | | | and [place] | + + + | Organization | [facility] | | | and [place] | + + + | Address | Unknown | + + + | Phone | Unavailable | + + + Support + + + + + | Name | Relationship | Address | Phone | + + + + + | Last Kishorcarlos | ECON | [address] | | | | | [place] | | | | | [address] | | + + + + + Care Team Providers + +------+ + | Care Maintenance Shop Clerk Name | Role | Phone | [...] [address] | [address] [place], [place] | pain laterality, | | | | [place], [place] | [address] | unspecified location | | | | [address] | | (Primary Dx) | | | | [phone] | | | +--------+ + + + [...] | | | | | | [address] [facility] [place] | | | | | | [address] | | | | | | | [...]
--- OUTSIDE RECORDS SUMMARY | ~2019-10-04 | XMS | Encounter Summary ---
Demographics + + + | Address | [address] | | | [place] [address] | + + + | Home Phone [...] + | Last Garner | ECON | [address] | | | | | [place] | | | | | [address] | | + + + + + Care Team Providers + +------+ + | Care Cnc Lathe Machine Operator Name | Role | Phone | + +------+ + | Marilee Whaley | PCP | | | PA | | | + +------+ + Encounter Details +--------+ + + + + | Date | Type | Department | Care Team | Description | +--------+ + + + + | 11/01/ | Orders Only | [facility] | Rod Schaefer, | | | 2018 | | [facility] | BELT REPAIRER [address] | | | | | [address] | [place] | | | | | [address] [place], [place] | [place] | | | | | [address] | [address] | | | | | [phone] | [phone] | | | | | | | [...] 2019 | Visit | | [address] [facility] | | | | | | [address] [place] | | | | | | [address] | | | | | | | [...] | | | LAB | | | [place]AN | | | | | + + [...]
--- OUTSIDE RECORDS SUMMARY | ~2019-10-04 | XMS | Encounter Summary ---
Demographics + + + | Address | [address] | | | [place] [address] | + + + | Home Phone [...] + | Last Kishorcarlos | ECON | [address] | | | | | [place] | | | | | [address] | | + + + + + Care Team Providers + +------+ + | Care Metal Punch Press Operator Name | Role | Phone | + +------+ + | Marilee Whaley | PCP | | | PA | | | + +------+ + Encounter Details +--------+ + + + + | Date | Type | Department | Care Team | Description | +--------+ + + + + | 06/12/ | Hospital | [facility] | Conversion | Mass of left kidney | | 2019 | Encounter | [facility] | Transaction, | | | | | [address] | Provider Unknown | | | | | [place], [place] | | | | | | [address] | (Fax) | | | | | [phone] | | | +--------+ + + + [...] Visit | | [address] [facility] | | | | | | [address] [place], [place] | | | | | | [address] | | | | | | | [...] left kidney seen on imaging done in [facility]. patient not sure | | | [...] left kidney seen on imaging done in [facility]. patient not sure | | what [...]
--- OUTSIDE RECORDS SUMMARY | ~2019-10-04 | XMS | Encounter Summary ---
Demographics + + + | Address | [address] | | | [place] [address] | + + + | Home Phone | | + + + | Preferred Language | Unknown | + + + | Marital Status | | + + + | Jewish Affiliation | Unknown | + + + | Race | Unknown | + + + | Ethnic Group | Unknown | + + + Author + + + | Author | [facility] | | | and [place] | + + + | Organization | [facility] | | | and [place] | + + + | Address | Unknown | + + + | Phone | Unavailable | + + + Support + + + + + | Name | Relationship | Address | Phone | + + + + + | Last Kishorcarlos | ECON | [address] | | | | | [place] | | | | | [address] | | + + + + + Care Team Providers + +------+ + | Care Registration Scheduling Specialist Name | Role | Phone | + +------+ + | Marilee Whaley | PCP | | | PA | | | + +------+ + Encounter Details +--------+ + + + + | Date | Type | Department | Care Team | Description | +--------+ + + + + | 07/23/ | Orders Only | [facility] | Conversion | | | 2017 | | NEPHROLOGY [place] | Transaction, | | | | | [address] | Provider Unknown | | | | | [address] [place], [place] | | | | | | [address] | (Fax) | | | | | [phone] | | | +--------+ + + + [...] 2019 | Visit | | [address] [facility] | | | | | | [address] [place], [place] | | | | | | [address] | | | | | | | [...]
--- OUTSIDE RECORDS SUMMARY | ~2019-10-04 | XMS | Encounter Summary ---
Demographics + + + | Address | [address] | | | [place] [address] | + + + | Home Phone | | + + + | Preferred Language | Unknown | + + + | Marital Status | | + + + | Congregation Affiliation | Unknown | + + + | Race | Unknown | + + + | Ethnic Group | Unknown | + + + Author + + + | Author | [facility] | | | and [place] | + + + | Organization | [facility] | | | and [place] | + + + | Address | Unknown | + + + | Phone | Unavailable | + + + Support + + + + + | Name | Relationship | Address | Phone | + + + + + | Last Pascual | ECON | [address] | | | | | [place] | | | | | [address] | | + + + + + Care Team Providers + +------+ + | Care Acoustical Logging Engineer Name | Role | Phone | + [...] [address] | | | | | [address] | [place] | | | | | kidney | [place], | [place], [place] | | | | | | [place] [address] | [address] | | | | | | Phone: | Phone: | | | | | | [phone] | [phone] | | | | | | Fax: | Fax: | | | | | | [phone] | [phone] | +--------+ + + + + + Encounter Details +--------+ + + + + | Date | Type | Department | Care Team | Description | +--------+ + + + + | 08/14/ | Orders Only | [facility] | Jonathan Acosta MD | Hemorrhage of cyst | | 2019 | | NEPHROLOGY [place] | [address] | of hoopa kidney | | | | [address] [place] | [address] [place], [place] | (Primary Dx) | | | | [address] [place], [place] | [address] | | | | | [address] | | | | | | [phone] | | | +--------+ + + + [...] 2019 | Visit | | [address] [facility] | | | | | | [address] [place] | | | | | | [address] | | | | | | | [...] Urology | Referral | e | of hoopa kidney | | + + +--------+ + + documented as of this encounter Visit Diagnoses + + | Diagnosis | + + | Hemorrhage of cyst of hoopa kidney - Primary Vascular disorders of kidney | + + documented in this encounter"
--- OUTSIDE RECORDS SUMMARY | ~2019-10-04 | XMS | Encounter Summary ---
Demographics + + + | Address | [address] | | | [place] [address] | + + + | Home Phone | | + + + | Preferred Language | Unknown | + + + | Marital Status | | + + + | Jewish Affiliation | Unknown | + + + | Race | Unknown | + + + | Ethnic Group | Unknown | + + + Author + + + | Author | [facility] | | | and [place] | + + + | Organization | [facility] | | | and [place] | + + + | Address | Unknown | + + + | Phone | Unavailable | + + + Support + + + + + | Name | Relationship | Address | Phone | + + + + + | Last Kishorcarlos | ECON | [address] | | | | | [place] | | | | | [address] | | + + + + + Care Team Providers + +------+ + | Care Supervisor Brew House Name | Role | Phone | + +------+ + | Marilee Whaley | PCP | | | PA | | | + +------+ + Encounter Details +--------+ + + + + | Date | Type | Department | Care Team | Description | +--------+ + + + + | 05/03/ | Orders Only | [facility] | Conversion | | | 2018 | | NEPHROLOGY [place] | Transaction, | | | | | [address] | Provider Unknown | | | | | [address] [place], [place] | | | | | | [address] | (Fax) | | | | | [phone] | | | +--------+ + + + [...] | Visit | | [address] [facility] | | | | | | [address] [place], [place] | | | | | | [address] | | | | | | | [...]
--- OUTSIDE RECORDS SUMMARY | ~2019-10-04 | XMS | Encounter Summary ---
Demographics + + + | Address | [address] | | | [place] [address] | + + + | Home Phone | | + + + | Preferred Language | Unknown | + + + | Marital Status | | + + + | Uatsdin Affiliation | Unknown | + + + [...] + | Last Kishorcarlos | ECON | [address] | | | | | [place] | | | | | [address] | | + + + + + Care Team Providers + +------+ + | Care News Commentator Name | Role | Phone | + [...] + + | 09/09/ | Procedure | [facility] | | Pacemaker (Primary | | 2019 | visit | CARDIOLOGY [place] | | Dx) | | | | [address] | | | | | | [place], [place] | | | | | | [address] | | | | | | [phone] | | | +--------+ + + + [...] 2020 | Visit | | [address] [facility] | | | | | | [address] [place] | | | | | | [address] | | | | | | | [...] | | | encounter for additional details. daytime babysitter: Dru Vasquez | | | | | |See device data attached to scheduled encounter for additional | | |details. | | | | | |daytime babysitter: Dru Vasquez | | | | | [...]
--- OUTSIDE RECORDS SUMMARY | ~2019-10-04 | XMS | Encounter Summary ---
Demographics + + + | Address | [address] | | | [place] [address] | + + + | Home Phone | | + + + | Preferred Language | Unknown | + + + | Marital Status | | + + + | Pentecostal Affiliation | Unknown | + + + | Race | Unknown | + + + | Ethnic Group | Unknown | + + + Author + + + | Author | [facility] | | | and [place] | + + + | Organization | [facility] | | | and [place] | + + + | Address | Unknown | + + + | Phone | Unavailable | + + + Support + + + + + | Name | Relationship | Address | Phone | + + + + + | Last [place]ish[place]los | ECON | [address] | | | | | [place] | | | | | [address] | | + + + + + Care Team Providers + +------+ + | Care Analyst Food And Beverage Name | Role | Phone | + [...] + + | 06/24/ | Refill | [facility] | Rod Schaefer, | Medication Refill | | 2018 | | NEPHROLOGY [facility] | [address] | | | | | [address] [facility] | [place] | | | | | [place] | [place] | | | | | [address] | [address] | | | | | [phone] | [phone] | | | | | | | [...] | | | | | | [address] [place], [place] | | | | | | [id number] | | | | | | | [...]
--- OUTSIDE RECORDS SUMMARY | ~2019-10-04 | XMS | Encounter Summary ---
Demographics + + + | Address | [address] | | | [place] [address] | + + + | Home Phone | | + + + | Preferred Language | Unknown | + + + | Marital Status | | + + + | Jainism Affiliation | Unknown | + + + | Race | Unknown | + + + | Ethnic Group | Unknown | + + + Author + + + | Author | [facility] | | | and [place] | + + + | Organization | [facility] | | | and [place] | + + + | Address | Unknown | + + + | Phone | Unavailable | + + + Support + + + + + | Name | Relationship | Address | Phone | + + + + + | Last [place]los | ECON | [address] | | | | | [place] | | | | | [address] | | + + + + + Care Team Providers + +------+ + | Care Political Science Faculty Member Name | Role | Phone | + +------+ + | Marilee Whaley | PCP | | | PA | | | + +------+ + Encounter Details +--------+ + + + + | Date | Type | Department | Care Team | Description | +--------+ + + + + | 03/13/ | Orders Only | [facility] | Conversion | | | 2015 | | NEPHROLOGY [facility] | Transaction, | | | | | [address] | Provider Unknown | | | | | [address] [place], [place] | | | | | | [address] | (Fax) | | | | | [phone] | | | +--------+ + + + [...] 2019 | Visit | | [address] [facility] | | | | | | [address] [place], [place] | | | | | | [address] | | | | | | | [...] TRISTANIAN | | | | | + +-------+ [...] TRISTANIAN | | | | | + +---------+ [...]
[~2019-10-04 16:24] MED LIST changes: +AMLODIPINE BESYL5 MG PO; +ZOCOR40 MG
[2019-10-04] MEDS ORDERED: VIRTUSSIN AC L118 ML PO (18:17)
--- NOTE | 2019-10-05 07:15 | EKG ---
[facility] [address] [facility] [place] [address] Signed Suspect unspecified pacemaker failure Sinus tachycardia Low voltage QRS Incomplete right bundle branch block Left anterior fascicular block Inferior infarct , age undetermined Cannot rule out Anterior infarct , age undetermined Abnormal ECG When compared with ECG of 19-NOV-2018 15:58, Significant changes have occurred Confirmed by ALLYSSA BARRAGAN MD ([id number]) on 10/05/2019 7:15:03 AM Electronically Signed By: ALLYSSA BARRAGAN MD 10/05/19 0715 PATIENT NAME: TADEO AYALA Electrocardiogram DATE OF : 43 PHYSICIAN: ALLYSSA BARRAGAN MD REPORT #: [id number] REPORT IS CONFIDENTIAL AND NOT TO BE RELEASED WITHOUT AUTHORIZATION
== END 2019-10-04 22:24 | disposition short-term general hospital (02) ==
LOC: ED 16:24
DX: J40 Bronchitis, not specified as acute or chronic (principal); I12.9 Hypertensive chronic kidney disease with stage 1 through stage 4 chronic kidney disease, or unspecified chronic kidney disease; N18.3 Chronic kidney disease, stage 3 (moderate); E11.22 Type 2 diabetes mellitus with diabetic chronic kidney disease; E66.9 Obesity, unspecified; Z87.891 Personal history of nicotine dependence; Z79.899 Other long term (current) drug therapy; Z79.82 Long term (current) use of aspirin; Z79.84 Long term (current) use of oral hypoglycemic drugs
CPT/HCPCS: 71045; 80053; 83605; 83880; 84484; 85025; 85379; 93005; 93010; 94640; 96374; 99285-25